=== PATIENT | female | born 1955 | race Caucasian/White ===

== ENCOUNTER 2017-09-07 07:59 | Observation (INO) | payer BC ==
[2017-09-07 09:28] LABS: CKMB 4.8 ng/mL (0-6.6); Troponin I Less than 0.010 ng/mL (< 0.028)
[2017-09-07 09:32] LABS: ALT (SGPT) 27 U/L (8-55); AST (SGOT) 60 U/L (5-34); Albumin 3.5 g/dL (3.4-4.8); Alkaline Phosphatase 45 U/L (40-150); Anion Gap 14 mmol/L (10-20); BUN (Urea Nitrogen) 33 mg/dL (9.8-20.1); Bilirubin, Total 1.9 mg/dL (0.2-1.2); CK (CPK) 340 U/L (29-168); Calc. Creatinine Clearance 0 mL/min (70-130); Calcium 8.7 mg/dL (7.8-10.44); Carbon Dioxide 25 mmol/L (23-31); Chloride 103 mmol/L (98-107); Estimated GFR-MDRD 38; Globulin 2.3 g/dL (2.4-3.5); Glucose 112 mg/dL (80-115); Lipase 14 U/L (8-78); Magnesium 2.5 mg/dL (1.6-2.6); Potassium 5.4 mmol/L (3.5-5.1); Protein, Total 5.8 g/dL (6.0-8.3); Sodium 137 mmol/L (136-145)
[2017-09-07 09:37] LABS: INR-International Normal Ratio 1.1; Prothrombin Time 14.4 SEC (12.0-14.7)
--- NOTE | 2017-09-07 10:08 | RAD ---
PORTABLE UPRIGHT FRONTAL CHEST RADIOGRAPH: DATE: 09/07/17. COMPARISON: 12/05/15. HISTORY: Chest pain. FINDINGS: There is no pneumothorax or pleural fluid. There is no focal consolidation or alveolar edema. Heart and mediastinal contours are unremarkable. No acute osseous abnormality is seen. Clips in the right upper quadrant suggest prior cholecystectomy. IMPRESSION: No acute findings. POS: [facility]
--- NOTE | 2017-09-07 10:20 | CT ---
CT HEAD NONCONTRAST: INDICATIONS: Altered mental status. COMPARISON: 08/19/2016 FINDINGS: There is motion artifact, which does limit the evaluation. Mild parenchymal volume loss is present. There is compensatory dilatation of the ventricular system. No intracranial hemorrhage, mass effect , or midline shift. The imaged paranasal sinuses reveal no acute fluid level. Subtle area of hypoattenuation indicate mild chronic ischemic disease. IMPRESSION: No acute intracranial abnormalities are identified, within limitations. POS: [facility]
[2017-09-07 10:27] LABS: Bilirubin Small (Negative); Blood, Urine Small (Negative); Glucose, Urine (Dipstick) Negative (Negative); Leukocyte Negative (Negative); Nitrite Negative (Negative); Protein, Urine (Dipstick) Negative (Neg-Trace); Specific Gravity, Urine 1.015 (1.005-1.030); pH, Urine 6.5 (5.0-9.0)
[2017-09-07 10:29] LABS: Clarity Clear (Clear)
--- NOTE | 2017-09-07 10:38 | CT ---
CT CHEST WITH CONTRAST: CT ABDOMEN AND PELVIS WITH CONTRAST: CT THORACIC SPINE WITH CONTRAST AND REFORMATTED IMAGING: CT LUMBAR SPINE WITH CONTRAST AND REFORMATTED IMAGING: CLINICAL HISTORY: Fall with injury and pain. FINDINGS: There is no evidence of lobar consolidation. No effusion or pneumothorax. There is mild subpleural patchy density of the left chest that may relate to volume loss. The solid abdominal organs are atra umatic in appearance. Evidence of a prior cholecystectomy. The bowel is incompletely assessed witho ut enteric contrast. The thoracolumbar spine maintains appropriate vertebral body height and alignme nt. There is scattered vascular calcification. No ascites or free air. No significant body wall contusi on or hematoma. IMPRESSION: 1. There is no acute post traumatic abnormality identified. 2. Additional details are described above. POS: [facility]
[2017-09-07 10:45] LABS: WBC/HPF 0-3 HPF (0-3)
[2017-09-07 10:46] LABS: Bacteria/HPF Rare-Few HPF (None Seen); Hyaline Casts/LPF 0-3 HYALINE CAST LPF (0-3 Hyaline); Transitional Epithelial 0-3 HPF (0-3)
[2017-09-07 11:14] LABS: #Basophils 0.1 thou/uL (0.0-0.2); #Lymphocytes 0.8 thou/uL (1.20-3.40); #Monocytes 0.5 thou/uL (0.11-0.59); #Neutrophils 2.2 thou/uL (1.40-6.50); %Basophils 1.7 % (0.0-1.0); %Eosinophils 0.1 % (0.0-10.0); %Lymphocytes 23.4 % (21.0-51.0); %Monocytes 12.9 % (0.0-10.0); %Neutrophils 61.9 % (42.0-75.0); Band 8 % (5-11); Lymphocytes 23 % (21-51); MDiff Complete? YES; Macrocytosis SLIGHT = 6-15 cells (100X) (0-5/hpf); Mean Corpuscular HGB CONC 34.3 g/dL (32.0-36.0); Mean Corpuscular Hemoglobin 35.3 pg (27.0-31.0); Mean Platelet Volume 6.8 fL (7.4-10.4); Metamyelocyte 1 % (0-0); Monocytes 6 % (0-10); Neutrophil 62 % (42-75); PLT Morphology Comment Appears Decreased; Platelet Count 47 thou/uL (130-400); Polychromasia SLIGHT = 2-3 cells (100X) (0-2/hpf); RBC Distribution Width 12.8 % (11.5-14.5); Red Blood Cell (RBC) Count 3.41 mill/uL (4.20-5.40); White Blood Cell (WBC) Count 3.6 thou/uL (4.8-10.8)
[2017-09-07] MEDS ORDERED: ISOVUE-370 76%-LOCM 1 ML ONE (12:13)
[2017-09-07] MEDS ORDERED: Ondansetron HCl/PF 4 MG/2 ML Vial IVP PRN ×2 (18:09→18:21)
[2017-09-07] MEDS ORDERED: Ondansetron ODT 4 MG TAB SL PRN (18:09)
[2017-09-07] MEDS ORDERED: Acetaminophen 325 MG TAB PO PRN ×2 (18:09→18:21)
[2017-09-07] MEDS ORDERED: Sodium Chloride 0.9% 1,000 ML IV SCH (18:15)
[2017-09-07] MEDS ORDERED: Ondansetron ODT 4 MG TAB PO PRN (18:21)
[2017-09-07] MEDS: Sodium Chloride 0.9% 1,000 ML IV SCH (19:29)
[2017-09-07 19:36] VITALS: BMI 19.2
[2017-09-07] MEDS ORDERED: Famotidine/PF 20 mg/2ml Vial SLOW IVP SCH (21:00)
[2017-09-07] MEDS: Calcium Citrate 950 MG TAB PO SCH (21:02)
[2017-09-07] MEDS: Docusate 100 MG CAP PO SCH (21:02)
[2017-09-08] MEDS: Sodium Chloride 0.9% 1,000 ML IV SCH ×3 (02:42→17:56)
[2017-09-08 05:14] LABS: ALT (SGPT) 22 U/L (8-55); AST (SGOT) 32 U/L (5-34); Alkaline Phosphatase 43 U/L (40-150); Anion Gap 11 mmol/L (10-20); BUN (Urea Nitrogen) 24 mg/dL (9.8-20.1); Bilirubin, Total 1.2 mg/dL (0.2-1.2); Calc. Creatinine Clearance 47 mL/min (70-130); Calcium 7.9 mg/dL (7.8-10.44); Carbon Dioxide 27 mmol/L (23-31); Chloride 107 mmol/L (98-107); Estimated GFR-MDRD 53; Globulin 1.9 g/dL (2.4-3.5); Glucose 113 mg/dL (80-115); Potassium 4.3 mmol/L (3.5-5.1); Protein, Total 4.9 g/dL (6.0-8.3); Sodium 141 mmol/L (136-145)
[2017-09-08 05:49] LABS: Band 2 % (5-11); Eosinophils 1 % (0-10); Hemoglobin 11.5 g/dL (12.0-16.0); Lymphocytes 50 % (21-51); MDiff Complete? YES; Mean Corpuscular HGB CONC 33.5 g/dL (32.0-36.0); Mean Platelet Volume 7.2 fL (7.4-10.4); Monocytes 11 % (0-10); Neutrophil 35 % (42-75); PLT Morphology Comment Appears Decreased; Platelet Count 42 thou/uL (130-400); RBC Distribution Width 12.9 % (11.5-14.5); Red Blood Cell (RBC) Count 3.29 mill/uL (4.20-5.40); White Blood Cell (WBC) Count 3.2 thou/uL (4.8-10.8)
[2017-09-08] MEDS: Multivit, Chewable SF 1 TAB PO SCH (09:21)
[2017-09-08] MEDS: Calcium Citrate 950 MG TAB PO SCH ×2 (09:21→20:51)
[2017-09-08] MEDS: Docusate 100 MG CAP PO SCH ×2 (09:22→20:50)
[2017-09-08] MEDS: Fluticasone Propionate Nasal Spray 16 gm Bottle NASAL SCH (11:21)
--- NOTE | 2017-09-08 15:00 | PDOC.PN ---
- Subjective Encounter Start Date: 09/08/17 Encounter Start Time: 11:00 Pt about the same, just off. denies f/C, no n/v/D/c, no CP, no SOB. Pt stated she fell, was on the ground for 4 days, doens remember coming to the ER 2 weeks ago for fall. recalls falling and fracturing her ankle months ago All systems reviewed and negative except as above. pt requesting to go to rehab - Objective Resuscitation Status: Resuscitation Status FULL:Full Resuscitation MAR Reviewed: Yes Vital Signs & Weight: Vital Signs (12 hours) Temp Pulse Resp BP Pulse Ox 09/08/17 11:31 97.8 F 72 16 125/57 L 100 09/08/17 08:00 97.5 F L 68 16 09/08/17 07:51 97.5 F L 68 16 125/79 97 Weight Weight 119 lb 0.794 oz I&O: 09/07/17 09/08/17 09/09/17 06:59 06:59 06:59 Intake Total 2850 Balance 2850 Result Diagrams: 09/08/17 04:49 09/08/17 04:49 Phys Exam - Physical Examination Constitutional: NAD HEENT: PERRLA, moist MMs, sclera anicteric, oral pharynx no lesions Neck: no nodes, no JVD, supple, full ROM Respiratory: no wheezing, no rales, no rhonchi, clear to auscultation bilateral Cardiovascular: RRR, no significant murmur Gastrointestinal: soft, non-tender, no distention, positive bowel sounds Musculoskeletal: no edema Neurological: non-focal, normal sensation, moves all 4 limbs Lymphatic: no nodes Skin: no rash, normal turgor, cap refill <2 seconds Dx/Plan (1) Fall on same level Code(s): W18.30XA - FALL ON SAME LEVEL, UNSPECIFIED, INITIAL ENCOUNTER Status : Acute (2) Bipolar 1 disorder Code(s): F31.9 - BIPOLAR DISORDER, UNSPECIFIED Status: Chronic (3) Decubitus ulcer Code(s): L89.90 - PRESSURE ULCER OF UNSPECIFIED SITE, UNSPECIFIED STAGE Status : Chronic Qualifiers: Qualified Code(s): L89.93 - Pressure ulcer of unspecified site, stage 3 Comment: sacral area, b/l heel stage 2, right forearm tissue injury, present on admit (4) Weakness Code(s): R53.1 - WEAKNESS Status: Chronic (5) Chronic anemia Code(s): D64.9 - ANEMIA, UNSPECIFIED Status: Chronic Comment: 12/24 (6) Dyslipidemia Code(s): E78.5 - HYPERLIPIDEMIA, UNSPECIFIED Status: Chronic (7) HTN (hypertension) Code(s): I10 - ESSENTIAL (PRIMARY) HYPERTENSION Status: Chronic Qualifiers: Hypertension type: essential hypertension Qualified Code(s): I10 - Essential (primary) hypertension (8) HYACINTH (acute kidney injury) Code(s): N17.9 - ACUTE KIDNEY FAILURE, UNSPECIFIED Status: Resolved Comment : improved overnight with fluids - Plan cont current plan of care, PT/OT, out of bed/ambulate * .
[2017-09-08] MEDS: Famotidine 20 MG TAB PO SCH (20:49)
[2017-09-08] MEDS ORDERED: Famotidine/PF 20 mg/2ml Vial SLOW IVP SCH (21:00)
[2017-09-09] MEDS: Sodium Chloride 0.9% 1,000 ML IV SCH (02:21)
[2017-09-09 04:53] LABS: Anion Gap 5 mmol/L (10-20); BUN (Urea Nitrogen) 19 mg/dL (9.8-20.1); Calc. Creatinine Clearance 53 mL/min (70-130); Calcium 7.3 mg/dL (7.8-10.44); Carbon Dioxide 29 mmol/L (23-31); Chloride 110 mmol/L (98-107); Estimated GFR-MDRD 61; Glucose 100 mg/dL (80-115); Magnesium 1.7 mg/dL (1.6-2.6); Potassium 4.1 mmol/L (3.5-5.1); Sodium 140 mmol/L (136-145)
[2017-09-09 05:06] LABS: #Eosinphils 0.1 thou/uL (0.0-0.7); #Lymphocytes 1.3 thou/uL (1.20-3.40); #Monocytes 0.4 thou/uL (0.11-0.59); #Neutrophils 0.8 thou/uL (1.40-6.50); %Basophils 0.8 % (0.0-1.0); %Eosinophils 4.9 % (0.0-10.0); %Monocytes 14.5 % (0.0-10.0); %Neutrophils 30.8 % (42.0-75.0); Hemoglobin 9.5 g/dL (12.0-16.0); Mean Corpuscular HGB CONC 33.8 g/dL (32.0-36.0); Mean Corpuscular Hemoglobin 35.7 pg (27.0-31.0); Mean Platelet Volume 7.1 fL (7.4-10.4); Platelet Count 40 thou/uL (130-400); RBC Distribution Width 12.9 % (11.5-14.5); Red Blood Cell (RBC) Count 2.65 mill/uL (4.20-5.40); White Blood Cell (WBC) Count 2.7 thou/uL (4.8-10.8)
[2017-09-09] MEDS: Multivit, Chewable SF 1 TAB PO SCH (08:15)
[2017-09-09] MEDS: Calcium Citrate 950 MG TAB PO SCH ×2 (08:15→20:00)
[2017-09-09] MEDS: Fluticasone Propionate Nasal Spray 16 gm Bottle NASAL SCH (08:15)
[2017-09-09] MEDS: Docusate 100 MG CAP PO SCH ×2 (08:16→20:01)
[2017-09-09 11:03] LABS: Iron Binding Capacity, Total 241 mcg/dL (265-497)
[2017-09-09 11:05] LABS: Iron 121 ug/dL (50-170)
[2017-09-09 11:33] LABS: Amphetamine Not Detected (NotDetected); Barbiturates Screen Not Detected (NotDetected); Benzodiazepine Screen Not Detected (NotDetected); Cocaine Metabolite Screen Not Detected (NotDetected); Medtox Control Line Valid? VALID (VALID); Medtox Reader # READER 4; Methadone Not Detected (NotDetected); Methamphetamine Not Detected (NotDetected); Opiate Screen Not Detected (NotDetected); Oxycodone Screen Not Detected (NotDetected); Phencyclidine (PCP) Not Detected (NotDetected); THC/Cannabinoid Screen Not Detected (NotDetected); Tricyclic Screen Not Detected (NotDetected)
[2017-09-09 13:19] LABS: Folate (Folic Acid) 6.7 ng/mL (7.0-31.4)
--- NOTE | 2017-09-09 14:36 | PDOC.PN ---
- Subjective Encounter Start Date: 09/09/17 Encounter Start Time: 14:35 Subjective: feels weak otherwise no new complaints -: reports that she is independent w ADL - Objective Resuscitation Status: Resuscitation Status FULL:Full Resuscitation MAR Reviewed: Yes Vital Signs & Weight: Vital Signs (12 hours) Temp Pulse Resp BP Pulse Ox 09/09/17 08:30 98.2 F 68 18 116/72 98 09/09/17 08:00 98.2 F 68 18 98 Weight Weight 119 lb 0.794 oz I&O: 09/08/17 09/09/17 09/10/17 06:59 06:59 06:59 Intake Total 2850 4600 Balance 2850 4600 Result Diagrams: 09/09/17 04:02 09/09/17 04:02 Additional Labs: Laboratory Tests 12/06/15 08/19/16 09/07/17 06:37 03:35 08:57 Hgb Plt Count 431 H 136 Troponin I Less than 0.010 TSH 3rd Generation 09/07/17 09/07/17 09/08/17 08:58 10:53 04:49 Hgb 12.0 11.5 L Plt Count 47 L 42 L Troponin I TSH 3rd Generation 1.5249 09/09/17 04:02 Hgb 9.5 L Plt Count 40 L Troponin I TSH 3rd Generation labs reviewed Phys Exam - Physical Examination Constitutional: NAD pale HEENT: PERRLA, moist MMs, sclera anicteric, oral pharynx no lesions Neck: no nodes, no JVD, supple, full ROM Respiratory: no wheezing, no rales, no rhonchi, clear to auscultation bilateral Cardiovascular: RRR, no significant murmur Gastrointestinal: soft, non-tender, no distention, positive bowel sounds Musculoskeletal: no edema, pulses present Neurological: non-focal, normal sensation, moves all 4 limbs Psychiatric: normal affect, A&O x 3 Skin: no rash Dx/Plan (1) Pancytopenia Code(s): D61.818 - OTHER PANCYTOPENIA Status: Acute (2) Fall on same level Code(s): W18.30XA - FALL ON SAME LEVEL, UNSPECIFIED, INITIAL ENCOUNTER Status : Acute (3) Bipolar 1 disorder Code(s): F31.9 - BIPOLAR DISORDER, UNSPECIFIED Status: Chronic (4) Dyslipidemia Code(s): E78.5 - HYPERLIPIDEMIA, UNSPECIFIED Status: Chronic (5) Folic acid deficiency Code(s): E53.8 - DEFICIENCY OF OTHER SPECIFIED B GROUP VITAMINS Status: Chronic - Plan PT/OT, out of bed/ambulate, DVT proph w/SCDs Cont to hold prozac given pancytopenia.depakote can also cause Pancytopenia -: DC seroquel as pt not on it at home -: replace Folic acid -: placement needede.Rehab eval in progress -: HD stable. AM labs * . Review of Systems - Review of Systems Constitutional: weakness, malaise. negative: fever, chills, sweats, other Respiratory: negative: Cough, Dry, Shortness of Breath, Hemoptysis, SOB with Excertion, Pleuritic Pain, Sputum, Wheezing Cardiovascular: negative: chest pain, palpitations, orthopnea, paroxysmal nocturnal dyspnea, edema, light headedness, other Gastrointestinal: negative: Nausea, Vomiting, Abdominal Pain, Diarrhea, Constipation, Melena, Hematochezia, Other Genitourinary: negative: Dysuria, Frequency, Incontinence, Hematuria, Retention , Other Musculoskeletal: negative: Neck Pain, Shoulder Pain, Arm Pain, Back Pain, Hand Pain, Leg Pain, Foot Pain, Other Skin: negative: Rash, Lesions, [place], Bruising, Other Neurological: negative: Weakness, Numbness, Incoordination, Change in Speech, Confusion, Seizures, Other - Medications/Allergies Allergies/Adverse Reactions: Allergies Allergy/AdvReac Type Severity Reaction Status Date / Time No Known Allergies Allergy Verified 09/08/17 15:00 Medications: Current Medications Acetaminophen (Tylenol) 650 mg PO Q4H PRN PRN Reason: Headache/Fever or Pain Calcium Citrate (Calcium Citrate) 950 mg PO BID [facility] Last Admin: 09/09/17 08:15 Dose: 950 mg Divalproex Sodium (Depakote Er) 1,000 mg PO DAILY [facility] Last Admin: 09/09/17 10:48 Dose: 1,000 mg Docusate Sodium (Colace) 100 mg PO BID [facility] Last Admin: 09/09/17 08:16 Dose: Not Given Ezetimibe (Zetia) 10 mg PO DAILY [facility] Famotidine (Pepcid) 20 mg PO 2100 [facility] Last Admin: 09/08/17 20:49 Dose: 20 mg Fluticasone Propionate (Flonase Nasal Waves) 0 gm NASAL DAILY [facility] Last Admin: 09/09/17 08:15 Dose: 1 spray Multivitamins (Multivit, Chewable Sf) 1 tab PO DAILY [facility] Last Admin: 09/09/17 08:15 Dose: 1 tab Ondansetron HCl (Zofran Odt) 4 mg PO Q6H PRN PRN Reason: Nausea/Vomiting Ondansetron HCl (Zofran) 4 mg IVP Q6H PRN PRN Reason: Nausea/Vomiting Sodium Chloride (Flush - Normal Saline) 10 ml IVF Q12HR [facility] Last Admin: 09/09/17 08:16 Dose: Not Given Sodium Chloride (Flush - Normal Saline) 10 ml IVF PRN PRN PRN Reason: Saline Flush
[2017-09-09 15:18] LABS: #Eosinphils 0.1 thou/uL (0.0-0.7); #Lymphocytes 1.6 thou/uL (1.20-3.40); #Monocytes 0.4 thou/uL (0.11-0.59); #Neutrophils 1.1 thou/uL (1.40-6.50); %Basophils 1.1 % (0.0-1.0); %Eosinophils 3.2 % (0.0-10.0); %Lymphocytes 49.1 % (21.0-51.0); %Monocytes 13.3 % (0.0-10.0); %Neutrophils 33.4 % (42.0-75.0); Hemoglobin 11.1 g/dL (12.0-16.0); Mean Corpuscular HGB CONC 33.3 g/dL (32.0-36.0); Mean Corpuscular Hemoglobin 35.2 pg (27.0-31.0); Mean Platelet Volume 6.7 fL (7.4-10.4); Platelet Count 49 thou/uL (130-400); RBC Distribution Width 12.7 % (11.5-14.5); Red Blood Cell (RBC) Count 3.16 mill/uL (4.20-5.40); White Blood Cell (WBC) Count 3.2 thou/uL (4.8-10.8)
[2017-09-09] MEDS: Famotidine 20 MG TAB PO SCH (20:01)
[2017-09-10 05:22] LABS: Eosinophils 7 % (0-10); Lymphocytes 63 % (21-51); MDiff Complete? YES; Mean Corpuscular HGB CONC 33.7 g/dL (32.0-36.0); Mean Corpuscular Hemoglobin 35.2 pg (27.0-31.0); Mean Platelet Volume 6.4 fL (7.4-10.4); Monocytes 7 % (0-10); Neutrophil 23 % (42-75); PLT Morphology Comment Appears Decreased; Platelet Count 59 thou/uL (130-400); RBC Distribution Width 12.6 % (11.5-14.5); Red Blood Cell (RBC) Count 2.83 mill/uL (4.20-5.40); White Blood Cell (WBC) Count 3.6 thou/uL (4.8-10.8)
[2017-09-10 08:36] VITALS: TEMP 98.3
[2017-09-10] MEDS ORDERED: Ezetimibe 10 MG TAB PO SCH (09:00)
[2017-09-10] MEDS ORDERED: Folic Acid 1 MG TAB PO SCH (09:00)
[2017-09-10] MEDS: Docusate 100 MG CAP PO SCH (09:03)
[2017-09-10] MEDS: Calcium Citrate 950 MG TAB PO SCH (09:03)
[2017-09-10] MEDS: Multivit, Chewable SF 1 TAB PO SCH (09:04)
[2017-09-10] MEDS: Fluticasone Propionate Nasal Spray 16 gm Bottle NASAL SCH (09:07)
[2017-09-10 16:03] VITALS: BP 114/62
--- NOTE | 2017-09-11 01:49 | DIS ---
DATE OF ADMISSION: Probably 09/07/2017 The patient was admitted by Dr. Pelon Blackwood. There is no H&P available at the time of discharge for me to review. DISCHARGE DIAGNOSES: 1. Pancytopenia, likely secondary to antidepressants Depakote and Prozac, improving. 2. Presentation after a fall with history of multiple falls. 3. History of psychiatric illness, anxiety and depression and bipolar illness. 4. Generalized chronic weakness. 5. Dyslipidemia. 6. Hypertension. 7. Acute kidney injury upon presentation, which is resolved. 8. Hyperkalemia on presentation, which is resolved. 9. Mild rhabdomyolysis, resolved. DISCHARGE DISPOSITION: [facility]. DISCHARGE MEDICATIONS: Depakote ER 1000 mg daily, Zetia 10 mg daily, aspirin 81 mg daily, fenofibric acid 135 mg daily, calcium citrate 950 mg p.o. b.i.d., nasal spray Flonase, Klonopin 0.25 mg p.o. b. i.d., Zofran as needed, folic acid 1 mg daily, Pepcid 20 mg daily, docusate as needed, Tylenol as nee ded. Please note that the Prozac has been put on hold given the pancytopenia. The patient might need an a lternative antidepressant given her pancytopenia. PROCEDURES DONE IN THE HOSPITAL: 1. CT scan of the chest, abdomen, and pelvis, which is negative for any evidence of acute abnormalit y. No hematoma or free air or fluid noticed. 2. Chest x-ray, which is negative for any cardiopulmonary abnormality. 3. CT scan of the brain, which is negative for any hemorrhage or acute infarction. HISTORY OF PRESENTING ILLNESS: This is obtained by the review from the emergency room physician's re cord. No H&P is available for me to review. According to the ER physician, the patient presented to the ER for a fall that has happened 4 days ag o prior to presentation. She complained of feeling weak and dizzy and does not really remember the e vent. She reports that she has fallen before as well. She was hemodynamically stable upon presentat ion with a blood pressure of 162/71 and pulse of 66. Her workup included CBC, which showed evidence of pancytopenia. She had bruises and abrasions all over the body. Twelve-lead EKG shows sinus kathrine cardia. Multiple imaging studies were done and were negative as above. She was given IV fluids and a CT scan of the chest, abdomen, and pelvis was done, which was negative for any blood loss or hemato ma. She was admitted for placement. HOSPITAL COURSE: The patient remained stable throughout the hospitalization. For her pancytopenia, this is likely secondary to her Depakote and Prozac. Prozac was held, but the Depakote was restarted upon patient's request with precaution. Her counts are stable, are improving at this point. I have stopped the Prozac for now. Her renal function was slightly reduced with a GFR of 38, which improve d with IV fluids. She had mild elevation of CPK at 340, which was improved as well. For her anemia, anemia workup was done and she was found to have low folic acid of 6.70 and she was started on folic acid supplementation. Iron level was normal at 121. Urinalysis negative. Urine drug screen negati ve. She was seen and examined prior to discharge and has been accepted by [facility]. PHYSICAL EXAMINATION: VITAL SIGNS: This morning, temperature 98.3, pulse of 60, respirations 16, saturating 98% on room ai r, blood pressure 107/62. GENERAL: No acute distress, awake, alert, oriented x3. CHEST: Clear to auscultation without any wheezing, rales or rhonchi. CARDIOVASCULAR: Rate and rhythm is regular without any murmurs or gallops. Discharge plan was discussed with the patient, who verbalized understanding.
== END 2017-09-10 15:01 ==
LOC: ERS 07:59 → T4-B 18:01
PROVIDERS: ADMIT Internal Medicine Infectious Disease; ATTEND Internal Medicine Infectious Disease
DX: D61.818 Other pancytopenia (principal); E78.5 Hyperlipidemia, unspecified; I10 Essential (primary) hypertension; E87.5 Hyperkalemia; F31.9 Bipolar disorder, unspecified; M62.82 Rhabdomyolysis; L89.90 Pressure ulcer of unspecified site, unspecified stage; N17.9 Acute kidney failure, unspecified; E53.8 Deficiency of other specified B group vitamins; D64.9 Anemia, unspecified; Z79.82 Long term (current) use of aspirin; Z79.899 Other long term (current) drug therapy; W18.30XA Fall on same level, unspecified, initial encounter
CPT/HCPCS: 36415; 36416; 51701; 70450; 71045; 71260; 74177; 80048; 80053; 80306; 81003; 81015; 82553; 82607; 82746; 83540; 83550; 83605; 83690; 83735; 84443; 84484; 85025; 85060; 85610; 93005; 96360; 96361; 96374; A4216; A4353; G0378; G8978-GP-CK; G8979-GP-CI; G8987-GO-CJ; G8988-GO-CI; S0028

== ENCOUNTER 2018-05-09 01:42 | Inpatient (IN) | payer MEDICARE, BC ==
[2018-05-09 02:04] LABS: Bilirubin Negative (Negative); Blood, Urine Negative (Negative); Clarity Clear (Clear); Glucose, Urine (Dipstick) Negative (Negative); Leukocyte Negative (Negative); Nitrite Negative (Negative); Protein, Urine (Dipstick) Negative (Neg-Trace); Specific Gravity, Urine 1.015 (1.005-1.030); Urobilinogen 0.2 mg/dL (0.2-1.0)
[2018-05-09 02:19] LABS: #Basophils 0.1 thou/uL (0.0-0.2); #Eosinphils 0.2 thou/uL (0.0-0.7); #Lymphocytes 1.5 thou/uL (1.20-3.40); #Monocytes 0.6 thou/uL (0.11-0.59); #Neutrophils 4.2 thou/uL (1.40-6.50); %Eosinophils 2.5 % (0.0-10.0); %Lymphocytes 23.4 % (21.0-51.0); %Monocytes 8.7 % (0.0-10.0); %Neutrophils 64.5 % (42.0-75.0); Hemoglobin 12.6 g/dL (12.0-16.0); Mean Corpuscular HGB CONC 35.5 g/dL (32.0-36.0); Mean Corpuscular Hemoglobin 34.8 pg (27.0-31.0); Mean Corpuscular Volume 98.2 fL (78.0-98.0); Mean Platelet Volume 5.2 fL (7.4-10.4); Platelet Count 344 thou/uL (130-400); RBC Distribution Width 14.3 % (11.5-14.5); Red Blood Cell (RBC) Count 3.61 mill/uL (4.20-5.40); White Blood Cell (WBC) Count 6.4 thou/uL (4.8-10.8)
[2018-05-09 02:39] LABS: ALT (SGPT) 18 U/L (8-55); AST (SGOT) 29 U/L (5-34); Albumin 3.9 g/dL (3.4-4.8); Alkaline Phosphatase 30 U/L (40-150); Anion Gap 13 mmol/L (10-20); BUN (Urea Nitrogen) 33 mg/dL (9.8-20.1); Bilirubin, Total 0.8 mg/dL (0.2-1.2); Calc. Creatinine Clearance 0 mL/min (70-130); Calcium 10.6 mg/dL (7.8-10.44); Carbon Dioxide 30 mmol/L (23-31); Chloride 107 mmol/L (98-107); Estimated GFR-MDRD 66; Globulin 2.5 g/dL (2.4-3.5); Glucose 115 mg/dL (80-115); Protein, Total 6.4 g/dL (6.0-8.3); Sodium 148 mmol/L (136-145)
[2018-05-09 02:41] LABS: Potassium 1.8 mmol/L (3.5-5.1)
[2018-05-09 02:44] LABS: Magnesium 2.1 mg/dL (1.6-2.6)
[2018-05-09 03:09] LABS: CKMB 6.2 ng/mL (0-6.6)
[2018-05-09] MEDS ORDERED: Pot Chloride/Pot Bicarb/Cit Ac 25 mEq Effervescent Tablet PO SCH (03:30)
[2018-05-09] MEDS ORDERED: Magnesium 2 GM/50 ML BAG (IN WATER) ONE (05:17)
[2018-05-09] MEDS ORDERED: Enoxaparin Sodium 60 MG/0.6 ML SYRINGE ONE (06:14)
[2018-05-09] MEDS ORDERED: Aspirin 325 MG TAB ONE (06:14)
--- NOTE | 2018-05-09 08:13 | RAD ---
PORTABLE CHEST ONE VIEW: 05/09/2018 1:30 a.m. HISTORY: Weakness. COMPARISON: 09/07/2017 FINDINGS: The heart size is normal. The lungs are well expanded without focal areas of consolidation, pneumoth oraces, or pleural effusions. IMPRESSION: No radiographic evidence of acute cardiopulmonary process. POS: [facility]
--- NOTE | 2018-05-09 08:21 | CT ---
PRELIMINARY REPORT/[facility]/EMERGENCY AFTER HOURS PROCEDURE: EXAM: CT Head Without Contrast EXAM DATE/TIME: 05/09/2018 2:23 AM CLINICAL HISTORY: 62 years old, female; Injury or trauma; Fall; Initial encounter; Abrasion; Not specified; Patient HX: PT reports fall while getting up to go to bathroom tonight. Denies loc, hitting head, stating that s he just was weak and collapsed. PT was unable to get up and remained of floor for approx. 3 hrs until neighbo r heard PT calling out. TECHNIQUE: Axial computed tomography images of the head/brain without contrast. COMPARISON: No relevant prior studies available. FINDINGS: Brain: Old lacunar infarction within the right basal ganglia. No mass, hemorrhage, or acute infarctio n. Ventricles: Normal. Bones/joints: Normal. Sinuses: Normal as visualized. Mastoid air cells: Normal as visualized. Soft tissues: Unremarkable. Vasculature: Atherosclerotic vascular calcifications. IMPRESSION: No acute intracranial abnormality. Thank you for allowing us to participate in the care of your patient. Dictated and Authenticated by: Db Arias MD 05/09/2018 3:21 AM Central Time ([place] & [place]) FINAL REPORT CT BRAIN WITHOUT CONTRAST: I agree with the preliminary report given by Dr. Db Arias of [facility]. POS: [facility]
--- NOTE | 2018-05-09 08:25 | CT ---
PRELIMINARY REPORT/[facility]/EMERGENCY AFTER HOURS PROCEDURE: EXAM: CT Cervical Spine Without Contrast EXAM DATE/TIME: 05/09/2018 3:12 AM CLINICAL HISTORY: 62 years old, female; Pain; Neck pain; Patient HX: PT reports fall while getting up to go to bathroom tonight. Denies loc, hitting head, stating that she just was weak and collapsed. PT was unable to ge t up and remained of floor for approx. 3 hrs until neighbor heard PT calling out. TECHNIQUE: Axial computed tomography images of the cervical spine without intravenous contrast. Coronal and sagi ttal reformatted images were created and reviewed. COMPARISON: No relevant prior studies available. FINDINGS: Vertebrae: Grade 1 (2 mm) degenerative retrolisthesis of C3 on C4 and grade one (2 mm) degenerative a nterolisthesis of C5 on C6. Mild multilevel bilateral facet and uncovertebral arthropathy. No acute f racture. Discs/Spinal canal/Neural foramina: Multilevel degenerative disc disease, worst at the C5-6 and C6-7 levels, where there is moderate disc space narrowing and osteophyte formation. Soft tissues: Normal. Lungs: Lung apices are normal. IMPRESSION: No acute fracture. Thank you for allowing us to participate in the care of your patient. Dictated and Authenticated by: Db Arias MD 05/09/2018 3:26 AM Central Time ([place] & [place]) FINAL REPORT CT CERVICAL SPINE WITH CORONAY AND SAGITTAL REFORMATIONS: I agree with the preliminary report given by Dr. Db Arias of [facility]. POS: [facility]
--- NOTE | 2018-05-09 10:32 | HP ---
PRIMARY CARE PROVIDER: Dr. Shahzad Christianson. CHIEF COMPLAINT: Fall and weakness. HISTORY OF PRESENT ILLNESS: This is a 62-year-old female, who presents to [facility] Emergency Department after apparently falling out of her bed at her home. The patient states that she was attempting to stand up when she turned, falling out of her bed and was unable to stand up on her own volition. The patient was on the carpeted floor in her home and was attempting to reach her phone with her foot, which was unsuccessful. The patient continued to yell and scream, alerting a neighbor, who eventually was able to secure a soria and notify EMS personnel. The patient states she has had difficulty with loose stool and diarrhea over the last 2 weeks with decreased oral intake and some dehydration. The patient denied any recent travel history, exposure, or family members with similar symptoms. The patient does state she has limited mobility using a cane for stabilization. The patient does have a history of multiple falls and evaluations for same after reviewing electronic medical record. The patient denied any chest pain, unilateral weakness, recent fever, chills, or emesis. The patient denied any loss of consciousness with the fall and was evaluated by EMS personnel, noting a normal glucose value. The patient was evaluated in the emergency room and noted to be severely hypokalemic with a potassium level of 1.8. The patient was also noted with mild acute kidney injury and given IV fluids and potassium supplementation. The patient was referred to the Hospitalist Service for evaluation. PAST MEDICAL HISTORY: 1. History of falls. 2. History of pancytopenia, likely due to antidepressant therapy and anti-seizure medication. 3. Bipolar disorder. 4. Anxiety/depression. 5. Hypertension. 6. Dyslipidemia. 7. History of mild rhabdomyolysis. 8. History of osteoporosis. 9. Chronic fatigue. PAST SURGICAL HISTORY: 1. Status post thyroid surgery. 2. Status post bilateral thyroidectomy. 3. Status post oophorectomy. 4. Status post cholecystectomy. 5. Status post bilateral tubal ligation. CURRENT MEDICATIONS: Based on previous admission in 2018; 1. Aspirin 81 mg p.o. daily. 2. Calcium citrate 950 mg p.o. t.i.d. 3. Klonopin 0.25 mg p.o. b.i.d. 4. Depakote ER 1000 mg p.o. daily. 5. Zetia 10 mg p.o. daily. 6. Fenofibric acid 135 mg p.o. daily. 7. Multivitamin one tablet p.o. daily. 8. Folic acid 1 mg p.o. daily. ALLERGIES: NO KNOWN DRUG ALLERGIES. FAMILY HISTORY: Positive for osteoporosis and thyroid disease. SOCIAL HISTORY: The patient lives independently in the [place], [place] area. Ambulates with the use of a cane. History of multiple falls. No current alcohol, tobacco, or illicit drug use. Her son is medical power of employee benefits attorney. REVIEW OF SYSTEMS: CONSTITUTIONAL: Negative for weight loss or gain, ability to conduct usual activities. SKIN: Negative for rash, itching. EYES: Negative for double vision, pain. ENT/MOUTH: Negative for nose bleeding, neck stiffness, pain, tenderness. CARDIOVASCULAR: Negative for palpitations, dyspnea on exertion, orthopnea. RESPIRATORY: Negative for shortness of breath, wheezing, cough, hemoptysis, fever or night sweats. GASTROINTESTINAL: Negative for poor appetite, abdominal pain, heartburn, nausea, vomiting, constipation, or diarrhea. GENITOURINARY: Negative for urgency, frequency, dysuria, nocturia. MUSCULOSKELETAL: Negative for pain, swelling. NEUROLOGIC/PSYCHIATRIC: Negative for anxiety, depression. ALLERGY/IMMUNOLOGIC: Negative for skin rash, bleeding tendency. Otherwise, negative except as stated per HPI. PHYSICAL EXAMINATION: VITAL SIGNS: On admission; blood pressure 158/90, pulse 82, respiratory rate 16, temperature 98 degrees Fahrenheit, and O2 saturations 99% on room air. GENERAL APPEARANCE: This is a 62-year-old female, alert and oriented x3, pleasant, smiling, in no acute distress. HEENT: Pupils are equal, round, reactive to light and accommodation. Extraocular muscles are intact. No scleral icterus. No conjunctival injection. Nares, patent. OP is clear. Oral mucosa, dry appearing. NECK: Supple. No cervical adenopathy. No thyromegaly. No carotid bruits. No JVD appreciated. Cervical spine with full active and passive range of motion. No meningeal signs appreciated. CHEST: Lungs are clear to auscultation bilaterally. CARDIOVASCULAR: S1 and S2 without noted murmur, rub, or gallop. ABDOMEN: Rounded, soft, nontender, and nondistended. Bowel sounds are positive in all 4 quadrants. No palpable mass. No rebound or guarding noted. EXTREMITIES: Warm and dry with fair turgor. Generalized muscle atrophy noted bilaterally. No deformity noted. No clubbing, cyanosis, or asymmetric edema noted. Pulses are palpable distally at the dorsalis pedis, posterior tibial, and popliteal arteries bilaterally. Capillary refill less than 2 seconds. NEUROLOGIC: Cranial nerves 2 through 12 are grossly intact. No focal or lateralizing signs appreciated. PERTINENT LAB AND X-RAY FINDINGS: Sodium 148, potassium 1.8, chloride 107, CO2 of 30, BUN 33, creatinine 0.87, estimated GFR of 66, glucose 115, calcium 10.6, magnesium 2.1. LFTs within normal limits. Total CK of 280, troponin-I ranged between 0.027 to 0.034. Albumin 3.9. CBC showed a white blood cell count of 6.4, hemoglobin 12.6, hematocrit 36, MCV 98, platelet count 344, with normal differential. Urinalysis, negative. CT of the brain dated 05/09/2018, showed no acute intracranial process. Old lacunar infarct in the right basal ganglia noted. CT of the cervical spine dated 05/09/2018, showed no acute fracture dislocation. Portable chest x-ray dated 05/09/2018, by my review, showed no acute cardiopulmonary process. EKG dated 05/09/2018, by my review, shows sinus mechanism with heart rates in the 70s. Attenuated R-waves noted in the precordial leads. Left axis deviation. Voltage criteria consistent with left ventricular hypertrophy. ST-T wave flattening noted in V5 and V6. ASSESSMENT AND PLAN: 1. Hypokalemia. Severe hypokalemia noted with initial value of 1.8. We will continue potassium supplementation with 40 mEq in normal saline infused at 100 mL/h. Increase oral supplementation with potassium chloride 40 mEq p.o. b.i.d. Repeat potassium level in the a.m. 2. Acute kidney injury. Mild. We will continue IV fluid supplementation as stated previously. Avoid nephrotoxic agents and limit contrast exposure. Repeat creatinine in the a.m. 3. Dehydration. We will continue IV fluids as outlined previously. Encourage increased free water intake orally. 4. Hypernatremia. Suspect secondary to dehydration as outlined previously. Continue IV fluid supplementation and repeat sodium level in the a.m. 5. Rhabdomyolysis. Acute mild rhabdomyolysis. Secondary to recent fall as noted in the history of present illness. Continue IV fluid supplementation. 6. Fall. No specific injury identified on clinical exam and radiological analysis. We will obtain PT evaluation in the a.m. for functional assessment. General fall risk precautions. 7. Prophylaxis. SCDs while in bed. Pepcid 20 mg p.o. b.i.d. PT evaluation for functional assessment. 8. Code status is full. Surrogate medical decision maker is the patient's son. Job ID: [id number]
[2018-05-09 10:48] LABS: Troponin I 0.029 ng/mL (< 0.028)
[2018-05-09] MEDS ORDERED: Ondansetron PF 4 MG/2 ML Vial IVP PRN (16:19)
[2018-05-09] MEDS ORDERED: Ondansetron ODT 4 MG TAB PO PRN (16:19)
[2018-05-09] MEDS ORDERED: Folic Acid 1 MG TAB PO SCH (17:00)
[2018-05-09] MEDS ORDERED: Famotidine 20 MG TAB PO SCH (17:00)
[2018-05-09] MEDS ORDERED: clonazePAM 0.5 MG TAB PO SCH (17:00)
[2018-05-09] MEDS ORDERED: Aspirin Chewable 81 MG TAB PO SCH (17:00)
[2018-05-09] MEDS: NS 0.9% w/ 40 MEQ KCL 1,000 ML IV SCH (17:14)
[2018-05-10] MEDS: NS 0.9% w/ 40 MEQ KCL 1,000 ML IV SCH ×3 (02:38→21:47)
[2018-05-10 04:55] LABS: ALT (SGPT) 16 U/L (8-55); AST (SGOT) 27 U/L (5-34); Alkaline Phosphatase 26 U/L (40-150); Anion Gap 9 mmol/L (10-20); BUN (Urea Nitrogen) 17 mg/dL (9.8-20.1); Bilirubin, Total 0.5 mg/dL (0.2-1.2); Calc. Creatinine Clearance 66 mL/min (70-130); Calcium 7.5 mg/dL (7.8-10.44); Carbon Dioxide 30 mmol/L (23-31); Chloride 111 mmol/L (98-107); Estimated GFR-MDRD 78; Globulin 1.9 g/dL (2.4-3.5); Glucose 98 mg/dL (80-115); Protein, Total 4.9 g/dL (6.0-8.3); Sodium 148 mmol/L (136-145)
[2018-05-10 04:57] LABS: Eosinophils 5 % (0-10); Hemoglobin 11.2 g/dL (12.0-16.0); Lymphocytes 37 % (21-51); MDiff Complete? YES; Mean Corpuscular HGB CONC 34.2 g/dL (32.0-36.0); Mean Corpuscular Volume 99.3 fL (78.0-98.0); Mean Platelet Volume 5.3 fL (7.4-10.4); Monocytes 14 % (0-10); Neutrophil 44 % (42-75); Platelet Count 300 thou/uL (130-400); RBC Distribution Width 14.2 % (11.5-14.5); Red Blood Cell (RBC) Count 3.31 mill/uL (4.20-5.40); White Blood Cell (WBC) Count 4.3 thou/uL (4.8-10.8)
[2018-05-10] MEDS: clonazePAM 0.5 MG TAB PO SCH ×2 (08:02→20:27)
[2018-05-10] MEDS: Aspirin Chewable 81 MG TAB PO SCH (08:03)
[2018-05-10] MEDS: Famotidine 20 MG TAB PO SCH ×2 (08:03→20:26)
[2018-05-10] MEDS: Folic Acid 1 MG TAB PO SCH (08:03)
[2018-05-10] MEDS: Docusate 100 MG CAP PO SCH ×2 (08:55→20:26)
[2018-05-10] MEDS: FLUoxetine HCl 20 MG CAP PO SCH (08:55)
[2018-05-10] MEDS: Multivit, Therapeutic 1 TAB PO SCH (08:55)
[2018-05-10 11:34] VITALS: BMI 20.3
--- NOTE | 2018-05-10 14:21 | PDOC.PN ---
- Subjective Encounter Start Date: 05/10/18 Encounter Start Time: 08:15 -: old records requested/rev Patient seen and examined. No new complaints. No overnight events - Objective Resuscitation Status - Order Detail: 05/09/18 08:38 Resuscitation Status Routine Resuscitation Status: FULL: Full Resuscitation MAR Reviewed: Yes Vital Signs & Weight: Vital Signs (12 hours) Temp Pulse Resp BP Pulse Ox 05/10/18 11:35 97.0 F L 60 15 139/62 99 05/10/18 08:15 97.6 F 55 L 16 141/67 H 96 05/10/18 04:43 97.0 F L 67 16 119/54 L 97 Weight Admit Weight 122 lb Weight 126 lb 4 oz I&O: 05/09/18 05/10/18 05/11/18 06:59 06:59 06:59 Intake Total 1980 Output Total 1000 Balance 980 Result Diagrams: 05/10/18 04:14 05/10/18 04:14 EKG Reviewed by me: Yes Phys Exam - Physical Examination Constitutional: NAD HEENT: PERRLA, moist MMs, sclera anicteric Neck: no JVD, supple Respiratory: no wheezing, no rales, no rhonchi Cardiovascular: RRR, no significant murmur, no rub Gastrointestinal: soft, non-tender, no distention, positive bowel sounds Musculoskeletal: no edema, pulses present Neurological: non-focal Lymphatic: no nodes Psychiatric: normal affect, A&O x 3 Skin: no rash, normal turgor Dx/Plan (1) HYACINTH (acute kidney injury) Code(s): N17.9 - ACUTE KIDNEY FAILURE, UNSPECIFIED Status: Acute (2) Dehydration Code(s): E86.0 - DEHYDRATION Status: Acute (3) Fall Code(s): W19.XXXA - UNSPECIFIED FALL, INITIAL ENCOUNTER Status: Acute (4) Hypernatremia Code(s): E87.0 - HYPEROSMOLALITY AND HYPERNATREMIA Status: Acute (5) Hypokalemia Code(s): E87.6 - HYPOKALEMIA Status: Acute (6) Rhabdomyolysis Code(s): M62.82 - RHABDOMYOLYSIS Status: Acute (7) Anxiety and depression Code(s): F41.9 - ANXIETY DISORDER, UNSPECIFIED; F32.9 - MAJOR DEPRESSIVE DISORDER, SINGLE EPISODE, UNSPECIFIED Status: Chronic (8) Bipolar disorder Code(s): F31.9 - BIPOLAR DISORDER, UNSPECIFIED Status: Chronic (9) Chronic anemia Code(s): D64.9 - ANEMIA, UNSPECIFIED Status: Chronic Comment: (10) Dyslipidemia Code(s): E78.5 - HYPERLIPIDEMIA, UNSPECIFIED Status: Chronic (11) HTN (hypertension) Code(s): I10 - ESSENTIAL (PRIMARY) HYPERTENSION Status: Chronic - Plan cont current plan of care * continue IVF * replace potassium with fluid and orally * repeat labs tomorrow * medication reviewed as below * symptomatic treatment. Review of Systems - Review of Systems ENT: negative: Ear Pain, Ear Discharge, Nose Pain, Nose Discharge, Nose Congestion, Mouth Pain, Mouth Swelling, Throat Pain, Throat Swelling, Other Respiratory: negative: Cough, Dry, Shortness of Breath, Hemoptysis, SOB with Excertion, Pleuritic Pain, Sputum, Wheezing Cardiovascular: negative: chest pain, palpitations, orthopnea, paroxysmal nocturnal dyspnea, edema, light headedness, other Gastrointestinal: negative: Nausea, Vomiting, Abdominal Pain, Diarrhea, Constipation, Melena, Hematochezia, Other Genitourinary: negative: Dysuria, Frequency, Incontinence, Hematuria, Retention , Other Musculoskeletal: negative: Neck Pain, Shoulder Pain, Arm Pain, Back Pain, Hand Pain, Leg Pain, Foot Pain, Other - Medications/Allergies Allergies/Adverse Reactions: Allergies Allergy/AdvReac Type Severity Reaction Status Date / Time No Known Allergies Allergy Verified 05/09/18 16:34 Medications: Current Medications Acetaminophen (Tylenol) 1,000 mg PO Q6H PRN PRN Reason: Mild Pain (1-3) Aspirin (Aspirin Chewable) 81 mg PO DAILY [facility] Last Admin: 05/10/18 08:03 Dose: 81 mg Clonazepam (Klonopin) 0.25 mg PO BID [facility] Last Admin: 05/10/18 08:02 Dose: 0.25 mg Divalproex Sodium (Depakote Er) 1,000 mg PO DAILY [facility] Last Admin: 05/10/18 08:03 Dose: 1,000 mg Docusate Sodium (Colace) 100 mg PO BID [facility] Last Admin: 05/10/18 08:55 Dose: 100 mg Famotidine (Pepcid) 20 mg PO BID [facility] Last Admin: 05/10/18 08:03 Dose: 20 mg Fluoxetine HCl (Prozac) 60 mg PO DAILY [facility] Last Admin: 05/10/18 08:55 Dose: 60 mg Folic Acid (Folvite) 1 mg PO DAILY [facility] Last Admin: 05/10/18 08:03 Dose: 1 mg Potassium Chloride/Sodium Chloride (Ns 0.9% W/ 40 Meq Kcl) 1,000 mls @ 100 mls/ hr IV .Q10H [facility] Last Admin: 05/10/18 11:24 Dose: 1,000 mls Multivitamins (Theragran) 1 tab PO DAILY [facility] Last Admin: 05/10/18 08:55 Dose: 1 tab Ondansetron HCl (Zofran Odt) 4 mg PO Q6H PRN PRN Reason: Nausea/Vomiting Ondansetron HCl (Zofran) 4 mg IVP Q6H PRN PRN Reason: Nausea/Vomiting Fenofibric Acid ( Choline) [Fenofibric Acid] 135 Mg 0 each PO DAILY [facility] Potassium Chloride (K-Dur) 40 meq PO BID-[facility]
[2018-05-10] MEDS: Potassium Chloride 20 MEQ TAB PO SCH (16:26)
[2018-05-11] MEDS: Acetaminophen 500 MG TAB PO PRN ×2 (00:11→06:05)
[2018-05-11 05:10] LABS: #Eosinphils 0.2 thou/uL (0.0-0.7); #Lymphocytes 1.7 thou/uL (1.20-3.40); #Monocytes 0.4 thou/uL (0.11-0.59); #Neutrophils 1.8 thou/uL (1.40-6.50); %Eosinophils 4.4 % (0.0-10.0); %Lymphocytes 40.2 % (21.0-51.0); %Monocytes 10.3 % (0.0-10.0); %Neutrophils 44.1 % (42.0-75.0); Hemoglobin 11.1 g/dL (12.0-16.0); Mean Corpuscular HGB CONC 34.9 g/dL (32.0-36.0); Mean Corpuscular Hemoglobin 34.6 pg (27.0-31.0); Mean Platelet Volume 5.3 fL (7.4-10.4); Platelet Count 281 thou/uL (130-400); RBC Distribution Width 14.2 % (11.5-14.5); Red Blood Cell (RBC) Count 3.22 mill/uL (4.20-5.40); White Blood Cell (WBC) Count 4.1 thou/uL (4.8-10.8)
[2018-05-11 05:40] LABS: ALT (SGPT) 19 U/L (8-55); AST (SGOT) 33 U/L (5-34); Albumin 3.1 g/dL (3.4-4.8); Alkaline Phosphatase 28 U/L (40-150); Anion Gap 7 mmol/L (10-20); BUN (Urea Nitrogen) 9 mg/dL (9.8-20.1); Bilirubin, Total 0.4 mg/dL (0.2-1.2); CK (CPK) 487 U/L (29-168); Calc. Creatinine Clearance 70 mL/min (70-130); Carbon Dioxide 32 mmol/L (23-31); Chloride 111 mmol/L (98-107); Estimated GFR-MDRD 80; Globulin 1.9 g/dL (2.4-3.5); Glucose 91 mg/dL (80-115); Magnesium 1.5 mg/dL (1.6-2.6); Phosphorus 3.2 mg/dL (2.3-4.7); Potassium 3.3 mmol/L (3.5-5.1); Sodium 147 mmol/L (136-145)
[2018-05-11] MEDS ORDERED: Magnesium Sulfate 3 GM in Sodium Chloride 0.9% 100 ML IVPB SCH (08:00)
[2018-05-11] MEDS: D5 1/2 NS w/40 mEq KCL 1,000 ML IV SCH ×2 (08:53→21:10)
[2018-05-11] MEDS: Cyanocobalamin (Vitamin B-12) 1,000 MCG TAB PO SCH (08:58)
[2018-05-11] MEDS: Potassium Chloride 20 MEQ TAB PO SCH ×2 (08:58→15:42)
[2018-05-11] MEDS: Famotidine 20 MG TAB PO SCH ×2 (08:58→20:22)
[2018-05-11] MEDS: clonazePAM 0.5 MG TAB PO SCH ×2 (08:58→20:22)
[2018-05-11] MEDS: Folic Acid 1 MG TAB PO SCH (08:58)
[2018-05-11] MEDS: FLUoxetine HCl 20 MG CAP PO SCH (08:58)
[2018-05-11] MEDS: Aspirin Chewable 81 MG TAB PO SCH (08:59)
[2018-05-11] MEDS: Docusate 100 MG CAP PO SCH ×2 (08:59→20:22)
[2018-05-11] MEDS: Multivit, Therapeutic 1 TAB PO SCH (08:59)
[2018-05-11] MEDS: Multivitamin W/ Minerals 1 TAB PO SCH (08:59)
[2018-05-11] MEDS ORDERED: Bisacodyl 5 MG TAB PO PRN (10:03)
[2018-05-11] MEDS ORDERED: Eucerin (Mineral Oil/Petrolatum,White) 30 gm Jar TOP PRN (10:03)
[2018-05-11] MEDS ORDERED: hydrALAZINE 20 MG/ML VIAL SLOW IVP PRN (10:03)
[2018-05-11] MEDS ORDERED: Cepastat Lozenges 1 LOZ PO PRN (10:03)
[2018-05-11] MEDS ORDERED: Loratadine 10 MG TAB PO PRN (10:03)
[2018-05-11] MEDS ORDERED: Sodium Chloride 0.65% Nasal 44 ML BOT EA NARE PRN (10:03)
[2018-05-11] MEDS ORDERED: Calcium Carbonate 500 MG ChewTAB PO PRN (10:03)
[2018-05-11] MEDS ORDERED: Bisacodyl 10 MG SUPP PR PRN (10:03)
[2018-05-11] MEDS ORDERED: Artificial Tears 18 DROP/0.9 ML EA EYE PRN (10:03)
[2018-05-11] MEDS ORDERED: Loperamide HCl 2 MG CAP PO PRN (10:03)
[2018-05-11] MEDS ORDERED: Diabetic Tussin 200 MG/10 ML UDCUP PO PRN (10:03)
[2018-05-11] MEDS ORDERED: Senokot S 8.6-50 MG TAB PO PRN (10:03)
--- NOTE | 2018-05-11 10:03 | PDOC.PN ---
- Subjective Encounter Start Date: 05/11/18 Encounter Start Time: 07:50 pt has cramp in hand, no diarrhoea, no chest pain - Objective Resuscitation Status - Order Detail: 05/09/18 08:38 Resuscitation Status Routine Resuscitation Status: FULL: Full Resuscitation MAR Reviewed: Yes Vital Signs & Weight: Vital Signs (12 hours) Temp Pulse Resp BP Pulse Ox 05/11/18 07:10 98.6 F 64 15 135/63 100 05/11/18 04:20 98.4 F 70 16 128/62 98 Weight Admit Weight 122 lb Weight 127 lb 7 oz I&O: 05/10/18 05/11/18 05/12/18 06:59 06:59 06:59 Intake Total 1980 6000 Output Total 1000 5500 Balance 980 500 Result Diagrams: 05/11/18 04:59 05/11/18 04:59 EKG Reviewed by me: Yes Phys Exam - Physical Examination Constitutional: NAD HEENT: PERRLA, moist MMs, sclera anicteric Neck: no JVD, supple Respiratory: no wheezing, no rales, no rhonchi Cardiovascular: RRR, no significant murmur, no rub Gastrointestinal: soft, non-tender, no distention, positive bowel sounds Musculoskeletal: no edema, pulses present Neurological: non-focal, normal sensation, moves all 4 limbs Lymphatic: no nodes Psychiatric: normal affect, A&O x 3 Skin: no rash, normal turgor Dx/Plan (1) HYACINTH (acute kidney injury) Code(s): N17.9 - ACUTE KIDNEY FAILURE, UNSPECIFIED Status: Resolved (2) Dehydration Code(s): E86.0 - DEHYDRATION Status: Resolved (3) Fall Code(s): W19.XXXA - UNSPECIFIED FALL, INITIAL ENCOUNTER Status: Acute (4) Hypernatremia Code(s): E87.0 - HYPEROSMOLALITY AND HYPERNATREMIA Status: Acute (5) Hypokalemia Code(s): E87.6 - HYPOKALEMIA Status: Acute (6) Rhabdomyolysis Code(s): M62.82 - RHABDOMYOLYSIS Status: Acute (7) Anxiety and depression Code(s): F41.9 - ANXIETY DISORDER, UNSPECIFIED; F32.9 - MAJOR DEPRESSIVE DISORDER, SINGLE EPISODE, UNSPECIFIED Status: Chronic (8) Bipolar disorder Code(s): F31.9 - BIPOLAR DISORDER, UNSPECIFIED Status: Chronic (9) Chronic anemia Code(s): D64.9 - ANEMIA, UNSPECIFIED Status: Chronic Comment: (10) Dyslipidemia Code(s): E78.5 - HYPERLIPIDEMIA, UNSPECIFIED Status: Chronic (11) HTN (hypertension) Code(s): I10 - ESSENTIAL (PRIMARY) HYPERTENSION Status: Chronic (12) Elevated troponin Code(s): R74.8 - ABNORMAL LEVELS OF OTHER SERUM ENZYMES Status: Acute Comment: due to rhabdomyolysis (13) Hypomagnesemia Code(s): E83.42 - HYPOMAGNESEMIA Status: Acute - Plan cont current plan of care, PT/OT * change IVF dex with 1/2 NS with KCL * replace potassium and magnesium * repeat labs tomorrow * medication reviewed as below * symptomatic treatment. Review of Systems - Review of Systems ENT: negative: Ear Pain, Ear Discharge, Nose Pain, Nose Discharge, Nose Congestion, Mouth Pain, Mouth Swelling, Throat Pain, Throat Swelling, Other Respiratory: negative: Cough, Dry, Shortness of Breath, Hemoptysis, SOB with Excertion, Pleuritic Pain, Sputum, Wheezing Cardiovascular: negative: chest pain, palpitations, orthopnea, paroxysmal nocturnal dyspnea, edema, light headedness, other Gastrointestinal: negative: Nausea, Vomiting, Abdominal Pain, Diarrhea, Constipation, Melena, Hematochezia, Other Genitourinary: negative: Dysuria, Frequency, Incontinence, Hematuria, Retention , Other Musculoskeletal: negative: Neck Pain, Shoulder Pain, Arm Pain, Back Pain, Hand Pain, Leg Pain, Foot Pain, Other Skin: negative: Rash, Lesions, [place], Bruising, Other - Medications/Allergies Allergies/Adverse Reactions: Allergies Allergy/AdvReac Type Severity Reaction Status Date / Time No Known Allergies Allergy Verified 05/09/18 16:34 Medications: Current Medications Acetaminophen (Tylenol) 1,000 mg PO Q6H PRN PRN Reason: Mild Pain (1-3) Last Admin: 05/11/18 06:05 Dose: 1,000 mg Aspirin (Aspirin Chewable) 81 mg PO DAILY [facility] Last Admin: 05/11/18 08:59 Dose: 81 mg Clonazepam (Klonopin) 0.25 mg PO BID [facility] Last Admin: 05/11/18 08:58 Dose: 0.25 mg Cyanocobalamin (Vitamin B-12) 1,000 mcg PO DAILY [facility] Last Admin: 05/11/18 08:58 Dose: 1,000 mcg Divalproex Sodium (Depakote Er) 1,000 mg PO DAILY [facility] Last Admin: 05/11/18 08:58 Dose: 1,000 mg Docusate Sodium (Colace) 100 mg PO BID [facility] Last Admin: 05/11/18 08:59 Dose: 100 mg Famotidine (Pepcid) 20 mg PO BID [facility] Last Admin: 05/11/18 08:58 Dose: 20 mg Fluoxetine HCl (Prozac) 60 mg PO DAILY [facility] Last Admin: 05/11/18 08:58 Dose: 60 mg Folic Acid (Folvite) 1 mg PO DAILY [facility] Last Admin: 05/11/18 08:58 Dose: 1 mg Potassium Chloride/Dextrose/Sod Cl (D5 1/2 Ns W/40 Meq Kcl) 1,000 mls @ 75 mls/ hr IV .[id number] [facility] Last Admin: 05/11/18 08:53 Dose: 1,000 mls Iron/Minerals/Multivitamins (Theragran M) 1 tab PO DAILY [facility] Last Admin: 05/11/18 08:59 Dose: 1 tab Multivitamins (Theragran) 1 tab PO DAILY [facility] Last Admin: 05/11/18 08:59 Dose: Not Given Ondansetron HCl (Zofran Odt) 4 mg PO Q6H PRN PRN Reason: Nausea/Vomiting Ondansetron HCl (Zofran) 4 mg IVP Q6H PRN PRN Reason: Nausea/Vomiting Fenofibric Acid ( Choline) [Fenofibric Acid] 135 Mg 0 each PO DAILY [facility] Potassium Chloride (K-Dur) 40 meq PO BID-[facility] Last Admin: 05/11/18 08:58 Dose: 40 meq
--- NOTE | 2018-05-11 17:04 | EKG ---
Test Reason : Blood Pressure : / mmHG Vent. Rate : 075 BPM Atrial Rate : 075 BPM P-R Int : 194 ms QRS Dur : 092 ms QT Int : 436 ms P-R-T Axes : 037 -30 016 degrees QTc Int : 486 ms Normal sinus rhythm Left axis deviation Left ventricular hypertrophy with repolarization abnormality Abnormal ECG ST depression V4 - V6 new from EKG of 09/07/2017 Confirmed by DIGNA TOUSSAINT ([id number]), order editor HOWIE HERNANDEZ ([id number]) on 05/11/2018 5:04:42 PM Referred By: Confirmed By:DIGNA TOUSSAINT
[2018-05-11] MEDS: HYDROcodone/Acetaminophen 5/325 mg Tablet PO PRN (18:10)
[2018-05-11] MEDS ORDERED: diphenhydrAMINE 50 MG/ML VIAL IVP SCH (19:00)
[2018-05-11] MEDS ORDERED: Morphine 4 MG/ML VIAL SLOW IVP SCH ×2 (19:00→20:45)
[2018-05-12] MEDS: tiZANidine HCl 4 MG TAB PO PRN (05:50)
[2018-05-12] MEDS: clonazePAM 0.5 MG TAB PO SCH ×2 (08:44→21:58)
[2018-05-12] MEDS: Multivit, Therapeutic 1 TAB PO SCH (08:46)
[2018-05-12] MEDS: Potassium Chloride 20 MEQ TAB PO SCH ×2 (08:46→17:02)
[2018-05-12] MEDS: Multivitamin W/ Minerals 1 TAB PO SCH (08:46)
[2018-05-12] MEDS: Cyanocobalamin (Vitamin B-12) 1,000 MCG TAB PO SCH (08:46)
[2018-05-12] MEDS: Fenofibrate Nanocrystallized 145 MG TAB PO SCH (08:46)
[2018-05-12] MEDS: FLUoxetine HCl 20 MG CAP PO SCH (08:46)
[2018-05-12] MEDS: Folic Acid 1 MG TAB PO SCH (08:47)
[2018-05-12] MEDS: Aspirin Chewable 81 MG TAB PO SCH (08:47)
[2018-05-12] MEDS: Famotidine 20 MG TAB PO SCH ×2 (08:47→21:58)
[2018-05-12] MEDS: Docusate 100 MG CAP PO SCH ×2 (08:52→21:58)
[2018-05-12] MEDS ORDERED: Morphine 2 MG/ML SYRINGE SLOW IVP PRN (08:58)
[2018-05-12] MEDS: Ketorolac Tromethamine 30 MG/ML VIAL IVP PRN ×2 (09:17→21:57)
[2018-05-12] MEDS: cefTRIAXone\\ROCEPHIN 2 GM in Sodium Chloride 0.9% 100 ML IVPB SCH (09:19)
[2018-05-12 09:27] LABS: #Eosinphils 0.2 thou/uL (0.0-0.7); #Lymphocytes 1.3 thou/uL (1.20-3.40); #Monocytes 0.3 thou/uL (0.11-0.59); #Neutrophils 4.2 thou/uL (1.40-6.50); %Basophils 0.1 % (0.0-1.0); %Eosinophils 2.6 % (0.0-10.0); %Lymphocytes 22.4 % (21.0-51.0); %Monocytes 4.4 % (0.0-10.0); %Neutrophils 70.5 % (42.0-75.0); Hemoglobin 11.2 g/dL (12.0-16.0); Mean Corpuscular HGB CONC 32.7 g/dL (32.0-36.0); Mean Platelet Volume 5.9 fL (7.4-10.4); Platelet Count 201 thou/uL (130-400); RBC Distribution Width 14.2 % (11.5-14.5); Red Blood Cell (RBC) Count 3.28 mill/uL (4.20-5.40)
--- NOTE | 2018-05-12 09:46 | PDOC.PN ---
- Subjective Encounter Start Date: 05/12/18 Encounter Start Time: 08:30 pt has bilateral hand pain since yesterday, she has knuckle erythema and unable to open hand fully - Objective Resuscitation Status - Order Detail: 05/09/18 08:38 Resuscitation Status Routine Resuscitation Status: FULL: Full Resuscitation MAR Reviewed: Yes Vital Signs & Weight: Vital Signs (12 hours) Temp Pulse Resp BP Pulse Ox 05/12/18 08:30 97.8 F 68 18 96/49 L 96 05/12/18 05:20 98.6 F 76 20 139/76 96 05/12/18 00:00 99.1 F 74 18 123/65 94 L Weight Admit Weight 122 lb Weight 127 lb 9 oz I&O: 05/11/18 05/12/18 05/13/18 06:59 06:59 06:59 Intake Total 6000 1325 Output Total 5500 3300 Balance 500 -1975 Result Diagrams: 05/12/18 09:06 05/11/18 04:59 EKG Reviewed by me: Yes Phys Exam - Physical Examination Constitutional: NAD HEENT: PERRLA, moist MMs, sclera anicteric Neck: no JVD, supple Respiratory: no wheezing, no rales, no rhonchi Cardiovascular: RRR, no significant murmur, no rub Gastrointestinal: soft, non-tender, no distention, positive bowel sounds both hand swelling and tenderness noted Neurological: non-focal, normal sensation Lymphatic: no nodes Psychiatric: normal affect Skin: no rash, normal turgor Dx/Plan (1) HYACINTH (acute kidney injury) Code(s): N17.9 - ACUTE KIDNEY FAILURE, UNSPECIFIED Status: Resolved (2) Dehydration Code(s): E86.0 - DEHYDRATION Status: Resolved (3) Fall Code(s): W19.XXXA - UNSPECIFIED FALL, INITIAL ENCOUNTER Status: Acute (4) Hypernatremia Code(s): E87.0 - HYPEROSMOLALITY AND HYPERNATREMIA Status: Acute (5) Hypokalemia Code(s): E87.6 - HYPOKALEMIA Status: Acute (6) Rhabdomyolysis Code(s): M62.82 - RHABDOMYOLYSIS Status: Acute (7) Anxiety and depression Code(s): F41.9 - ANXIETY DISORDER, UNSPECIFIED; F32.9 - MAJOR DEPRESSIVE DISORDER, SINGLE EPISODE, UNSPECIFIED Status: Chronic (8) Bipolar disorder Code(s): F31.9 - BIPOLAR DISORDER, UNSPECIFIED Status: Chronic (9) Chronic anemia Code(s): D64.9 - ANEMIA, UNSPECIFIED Status: Chronic Comment: (10) Dyslipidemia Code(s): E78.5 - HYPERLIPIDEMIA, UNSPECIFIED Status: Chronic (11) HTN (hypertension) Code(s): I10 - ESSENTIAL (PRIMARY) HYPERTENSION Status: Chronic (12) Elevated troponin Code(s): R74.8 - ABNORMAL LEVELS OF OTHER SERUM ENZYMES Status: Acute Comment: due to rhabdomyolysis (13) Hypomagnesemia Code(s): E83.42 - HYPOMAGNESEMIA Status: Acute - Plan cont current plan of care, continue antibiotics * will check cbc, cmp, crp, uric acid today * will get both hand xray * will consult ortho * add morphin and toradol for pain control * medication reviewed as below * symptomatic treatment. * continue IVF * will repeat labs tomorrow Review of Systems - Review of Systems Eyes: negative: Pain, Vision Change, Conjunctivae Inflammation, Eyelid Inflammation, Redness, Other ENT: negative: Ear Pain, Ear Discharge, Nose Pain, Nose Discharge, Nose Congestion, Mouth Pain, Mouth Swelling, Throat Pain, Throat Swelling, Other Respiratory: negative: Cough, Dry, Shortness of Breath, Hemoptysis, SOB with Excertion, Pleuritic Pain, Sputum, Wheezing Cardiovascular: negative: chest pain, palpitations, orthopnea, paroxysmal nocturnal dyspnea, edema, light headedness, other Gastrointestinal: negative: Nausea, Vomiting, Abdominal Pain, Diarrhea, Constipation, Melena, Hematochezia, Other Genitourinary: negative: Dysuria, Frequency, Incontinence, Hematuria, Retention , Other Musculoskeletal: Hand Pain. negative: Neck Pain, Shoulder Pain, Arm Pain, Back Pain, Leg Pain, Foot Pain, Other - Medications/Allergies Allergies/Adverse Reactions: Allergies Allergy/AdvReac Type Severity Reaction Status Date / Time No Known Allergies Allergy Verified 05/09/18 16:34 Medications: Current Medications Acetaminophen (Tylenol) 1,000 mg PO Q6H PRN PRN Reason: Mild Pain (1-3) Last Admin: 05/11/18 06:05 Dose: 1,000 mg Hydrocodone Bitart/Acetaminophen (Pitts 5/325) 1 tab PO Q4H PRN PRN Reason: Moderate Pain (4-6) Last Admin: 05/11/18 18:10 Dose: 1 tab Artificial Tears (Tears Naturale) 2 drop EA EYE PRN PRN PRN Reason: Dry Eyes Aspirin (Aspirin Chewable) 81 mg PO DAILY [facility] Last Admin: 05/12/18 08:47 Dose: 81 mg Bisacodyl (Dulcolax) 10 mg [place] DAILYPRN PRN PRN Reason: Constipation Bisacodyl (Dulcolax) 10 mg PO DAILYPRN PRN PRN Reason: Constipation Calcium Carbonate (Tums) 1,000 mg PO Q4H PRN PRN Reason: Heartburn or Indigestion Clonazepam (Klonopin) 0.25 mg PO BID [facility] Last Admin: 05/12/18 08:44 Dose: 0.25 mg Cyanocobalamin (Vitamin B-12) 1,000 mcg PO DAILY [facility] Last Admin: 05/12/18 08:46 Dose: 1,000 mcg Divalproex Sodium (Depakote Er) 1,000 mg PO DAILY [facility] Last Admin: 05/12/18 08:46 Dose: 1,000 mg Docusate Sodium (Colace) 100 mg PO BID [facility] Last Admin: 05/12/18 08:52 Dose: 100 mg Famotidine (Pepcid) 20 mg PO BID [facility] Last Admin: 05/12/18 08:47 Dose: 20 mg Fenofibrate (Tricor) 145 mg PO DAILY [facility] Last Admin: 05/12/18 08:46 Dose: 145 mg Fluoxetine HCl (Prozac) 60 mg PO DAILY [facility] Last Admin: 05/12/18 08:46 Dose: 60 mg Folic Acid (Folvite) 1 mg PO DAILY [facility] Last Admin: 05/12/18 08:47 Dose: 1 mg Guaifenesin (Robitussin Sf) 200 mg PO Q4H PRN PRN Reason: Cough Hydralazine HCl (Apresoline) 10 mg SLOW IVP Q4H PRN PRN Reason: SBP > 180 and HR < 70 Potassium Chloride/Dextrose/Sod Cl (D5 1/2 Ns W/40 Meq Kcl) 1,000 mls @ 75 mls/ hr IV .[id number] [facility] Last Admin: 05/11/18 21:10 Dose: 1,000 mls Ceftriaxone Sodium 2 gm/ (Sodium Chloride) 100 mls @ 200 mls/hr IVPB Q24HR [facility] Last Admin: 05/12/18 09:19 Dose: 100 mls Iron/Minerals/Multivitamins (Theragran M) 1 tab PO DAILY [facility] Last Admin: 05/12/18 08:46 Dose: 1 tab Ketorolac Tromethamine (Toradol) 15 mg IVP Q6H PRN PRN Reason: Pain 4-6 Stop: 05/17/18 08:54 Last Admin: 05/12/18 09:17 Dose: 15 mg Loperamide HCl (Imodium) 2 mg PO PRN PRN PRN Reason: Diarrhea/Loose Stools Loratadine (Claritin) 10 mg PO DAILYPRN PRN PRN Reason: Sinus Symptoms Mineral Oil/White Petrolatum (Eucerin Cream) 0 gm TOP BIDPRN PRN PRN Reason: Dry Skin Morphine Sulfate (Morphine) 2 mg SLOW IVP Q4H PRN PRN Reason: PAIN 7-10 Multivitamins (Theragran) 1 tab PO DAILY [facility] Last Admin: 05/12/18 08:46 Dose: 1 tab Ondansetron HCl (Zofran Odt) 4 mg PO Q6H PRN PRN Reason: Nausea/Vomiting Ondansetron HCl (Zofran) 4 mg IVP Q6H PRN PRN Reason: Nausea/Vomiting Potassium Chloride (K-Dur) 40 meq PO BID-[facility] Last Admin: 05/12/18 08:46 Dose: 40 meq Senna/Docusate Sodium (Senokot S) 2 tab PO BID PRN PRN Reason: Constipation Sodium Chloride ([place] Nasal [place] 0.65%) 0 ml EA NARE QIDPRN PRN PRN Reason: Nasal Congestion Sodium Chloride (Flush - Normal Saline) 10 ml IVF PRN PRN PRN Reason: Saline Flush Throat Lozenges (Cepastat Lozenges) 1 armond PO Q2H PRN PRN Reason: Sore Throat Tizanidine HCl (Zanaflex) 4 mg PO BIDPRN PRN PRN Reason: Muscle Spasm Last Admin: 05/12/18 05:50 Dose: 4 mg
[2018-05-12 09:49] LABS: ALT (SGPT) 19 U/L (8-55); AST (SGOT) 27 U/L (5-34); Albumin 2.9 g/dL (3.4-4.8); Alkaline Phosphatase 29 U/L (40-150); Anion Gap 10 mmol/L (10-20); BUN (Urea Nitrogen) 7 mg/dL (9.8-20.1); Bilirubin, Total 0.3 mg/dL (0.2-1.2); CK (CPK) 272 U/L (29-168); CRP (Inflammatory) Less than 0.50 mg/dL (= or < 0.5); Calc. Creatinine Clearance 64 mL/min (70-130); Calcium 6.4 mg/dL (7.8-10.44); Carbon Dioxide 27 mmol/L (23-31); Chloride 109 mmol/L (98-107); Estimated GFR-MDRD 71; Globulin 1.7 g/dL (2.4-3.5); Glucose 174 mg/dL (80-115); Magnesium 4.1 mg/dL (1.6-2.6); Potassium 4.3 mmol/L (3.5-5.1); Protein, Total 4.6 g/dL (6.0-8.3); Sodium 142 mmol/L (136-145); Uric Acid 4.2 mg/dL (2.6-6.0)
[2018-05-12] MEDS: Dextrose 5 %-0.45 % NaCl 1,000 ML IV SCH ×2 (10:35→21:59)
--- NOTE | 2018-05-12 10:37 | RAD ---
LEFT HAND 3 VIEWS: Date: 05/12/18 HISTORY: Hand swelling and pain. FINDINGS: Carpals appear normally aligned. Metacarpals are intact. MCP joints unremarkable. IP joints unremarka ble with mild degenerative change at the DIP joints. No fracture. No evidence of inflammatory arthrop athy. IMPRESSION: Mild degenerative change. POS: [facility]
--- NOTE | 2018-05-12 10:38 | RAD ---
RIGHT HAND 3 VIEWS: Date: 05/12/18 HISTORY: Hand pain and swelling. FINDINGS/IMPRESSION: Carpals unremarkable. Metacarpals unremarkable. The MCP joint is unremarkable with mild narrowing and degenerative change at the first MCP joint. IP joints show mild degenerative change. No erosive tracy ge or evidence of inflammatory arthropathy. No acute fracture. POS: [facility]
[2018-05-12] MEDS ORDERED: methylPREDNISolone Sod Succ 40 MG VIAL IVP SCH (16:30)
[2018-05-13] MEDS: methylPREDNISolone Sod Succ 40 MG VIAL IVP SCH ×2 (01:28→05:48)
[2018-05-13 06:36] LABS: Anion Gap 14 mmol/L (10-20); BUN (Urea Nitrogen) 9 mg/dL (9.8-20.1); Calc. Creatinine Clearance 58 mL/min (70-130); Calcium 7.2 mg/dL (7.8-10.44); Carbon Dioxide 25 mmol/L (23-31); Chloride 108 mmol/L (98-107); Estimated GFR-MDRD 65; Glucose 172 mg/dL (80-115); Potassium 5.6 mmol/L (3.5-5.1); Sodium 141 mmol/L (136-145)
[2018-05-13 07:41] LABS: #Lymphocytes 1.1 thou/uL (1.20-3.40); #Monocytes 0.1 thou/uL (0.11-0.59); #Neutrophils 5.1 thou/uL (1.40-6.50); %Basophils 0.3 % (0.0-1.0); %Lymphocytes 16.9 % (21.0-51.0); %Monocytes 1.8 % (0.0-10.0); Hemoglobin 12.9 g/dL (12.0-16.0); Mean Corpuscular Hemoglobin 33.8 pg (27.0-31.0); Platelet Count 235 thou/uL (130-400); RBC Distribution Width 13.6 % (11.5-14.5); White Blood Cell (WBC) Count 6.4 thou/uL (4.8-10.8)
[2018-05-13] MEDS: FLUoxetine HCl 20 MG CAP PO SCH (09:05)
[2018-05-13] MEDS: clonazePAM 0.5 MG TAB PO SCH ×2 (09:06→21:38)
[2018-05-13] MEDS: Fenofibrate Nanocrystallized 145 MG TAB PO SCH (09:06)
[2018-05-13] MEDS: Docusate 100 MG CAP PO SCH ×2 (09:06→21:40)
[2018-05-13] MEDS: Aspirin Chewable 81 MG TAB PO SCH (09:06)
[2018-05-13] MEDS: predniSONE 20 MG TAB PO SCH (09:06)
[2018-05-13] MEDS: Famotidine 20 MG TAB PO SCH ×2 (09:06→21:40)
[2018-05-13] MEDS: Folic Acid 1 MG TAB PO SCH (09:07)
[2018-05-13] MEDS: cefTRIAXone\\ROCEPHIN 2 GM in Sodium Chloride 0.9% 100 ML IVPB SCH (09:07)
[2018-05-13] MEDS: Multivitamin W/ Minerals 1 TAB PO SCH (09:07)
[2018-05-13] MEDS: Cyanocobalamin (Vitamin B-12) 1,000 MCG TAB PO SCH (09:07)
--- NOTE | 2018-05-13 11:08 | PDOC.PN ---
- Subjective Encounter Start Date: 05/13/18 Encounter Start Time: 08:10 Patient seen and examined. No new complaints. No overnight events - Objective Resuscitation Status - Order Detail: 05/09/18 08:38 Resuscitation Status Routine Resuscitation Status: FULL: Full Resuscitation MAR Reviewed: Yes Vital Signs & Weight: Vital Signs (12 hours) Temp Pulse Resp BP Pulse Ox 05/13/18 09:06 97 05/13/18 07:46 98.6 F 65 18 128/58 L 97 05/13/18 04:00 98.5 F 69 18 125/60 97 05/13/18 00:00 98.8 F Weight Admit Weight 122 lb Weight 126 lb 4.8 oz I&O: 05/12/18 05/13/18 05/14/18 06:59 06:59 06:59 Intake Total 1325 2920 Output Total 3300 3500 Balance -1974 - Result Diagrams: 05/13/18 07:07 05/13/18 06:06 EKG Reviewed by me: Yes (nsr) Phys Exam - Physical Examination Constitutional: NAD HEENT: PERRLA, moist MMs, sclera anicteric Neck: no JVD, supple Respiratory: no wheezing, no rales, no rhonchi Cardiovascular: RRR, no significant murmur, no rub Gastrointestinal: soft, non-tender, no distention, positive bowel sounds Musculoskeletal: no edema, pulses present Neurological: non-focal, normal sensation, moves all 4 limbs Lymphatic: no nodes Psychiatric: normal affect, A&O x 3 Skin: no rash, normal turgor Dx/Plan (1) HYACINTH (acute kidney injury) Code(s): N17.9 - ACUTE KIDNEY FAILURE, UNSPECIFIED Status: Resolved (2) Dehydration Code(s): E86.0 - DEHYDRATION Status: Resolved (3) Fall Code(s): W19.XXXA - UNSPECIFIED FALL, INITIAL ENCOUNTER Status: Acute (4) Hypernatremia Code(s): E87.0 - HYPEROSMOLALITY AND HYPERNATREMIA Status: Acute (5) Hypokalemia Code(s): E87.6 - HYPOKALEMIA Status: Acute (6) Rhabdomyolysis Code(s): M62.82 - RHABDOMYOLYSIS Status: Acute (7) Anxiety and depression Code(s): F41.9 - ANXIETY DISORDER, UNSPECIFIED; F32.9 - MAJOR DEPRESSIVE DISORDER, SINGLE EPISODE, UNSPECIFIED Status: Chronic (8) Bipolar disorder Code(s): F31.9 - BIPOLAR DISORDER, UNSPECIFIED Status: Chronic (9) Chronic anemia Code(s): D64.9 - ANEMIA, UNSPECIFIED Status: Chronic Comment: (10) Dyslipidemia Code(s): E78.5 - HYPERLIPIDEMIA, UNSPECIFIED Status: Chronic (11) HTN (hypertension) Code(s): I10 - ESSENTIAL (PRIMARY) HYPERTENSION Status: Chronic (12) Elevated troponin Code(s): R74.8 - ABNORMAL LEVELS OF OTHER SERUM ENZYMES Status: Acute Comment: due to rhabdomyolysis (13) Hypomagnesemia Code(s): E83.42 - HYPOMAGNESEMIA Status: Acute - Plan cont current plan of care, 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 * DC IVF Review of Systems - Review of Systems ENT: negative: Ear Pain, Ear Discharge, Nose Pain, Nose Discharge, Nose Congestion, Mouth Pain, Mouth Swelling, Throat Pain, Throat Swelling, Other Respiratory: negative: Cough, Dry, Shortness of Breath, Hemoptysis, SOB with Excertion, Pleuritic Pain, Sputum, Wheezing Cardiovascular: negative: chest pain, palpitations, orthopnea, paroxysmal nocturnal dyspnea, edema, light headedness, other Gastrointestinal: negative: Nausea, Vomiting, Abdominal Pain, Diarrhea, Constipation, Melena, Hematochezia, Other Genitourinary: negative: Dysuria, Frequency, Incontinence, Hematuria, Retention , Other Musculoskeletal: negative: Neck Pain, Shoulder Pain, Arm Pain, Back Pain, Hand Pain, Leg Pain, Foot Pain, Other - Medications/Allergies Allergies/Adverse Reactions: Allergies Allergy/AdvReac Type Severity Reaction Status Date / Time No Known Allergies Allergy Verified 05/09/18 16:34 Medications: Current Medications Acetaminophen (Tylenol) 1,000 mg PO Q6H PRN PRN Reason: Mild Pain (1-3) Last Admin: 05/11/18 06:05 Dose: 1,000 mg Hydrocodone Bitart/Acetaminophen ([place] 5/325) 1 tab PO Q4H PRN PRN Reason: Moderate Pain (4-6) Last Admin: 05/11/18 18:10 Dose: 1 tab Artificial Tears (Tears Naturale) 2 drop EA EYE PRN PRN PRN Reason: Dry Eyes Aspirin (Aspirin Chewable) 81 mg PO DAILY [facility] Last Admin: 05/13/18 09:06 Dose: 81 mg Bisacodyl (Dulcolax) 10 mg [place] DAILYPRN PRN PRN Reason: Constipation Bisacodyl (Dulcolax) 10 mg PO DAILYPRN PRN PRN Reason: Constipation Calcium Carbonate (Tums) 1,000 mg PO Q4H PRN PRN Reason: Heartburn or Indigestion Clonazepam (Klonopin) 0.25 mg PO BID [facility] Last Admin: 05/13/18 09:06 Dose: 0.25 mg Cyanocobalamin (Vitamin B-12) 1,000 mcg PO DAILY [facility] Last Admin: 05/13/18 09:07 Dose: 1,000 mcg Divalproex Sodium (Depakote Er) 1,000 mg PO DAILY [facility] Last Admin: 05/13/18 09:07 Dose: 1,000 mg Docusate Sodium (Colace) 100 mg PO BID [facility] Last Admin: 05/13/18 09:06 Dose: 100 mg Famotidine (Pepcid) 20 mg PO BID [facility] Last Admin: 05/13/18 09:06 Dose: 20 mg Fenofibrate (Tricor) 145 mg PO DAILY [facility] Last Admin: 05/13/18 09:06 Dose: 145 mg Fluoxetine HCl (Prozac) 60 mg PO DAILY [facility] Last Admin: 05/13/18 09:05 Dose: 60 mg Folic Acid (Folvite) 1 mg PO DAILY [facility] Last Admin: 05/13/18 09:07 Dose: 1 mg Guaifenesin (Robitussin Sf) 200 mg PO Q4H PRN PRN Reason: Cough Hydralazine HCl (Apresoline) 10 mg SLOW IVP Q4H PRN PRN Reason: SBP > 180 and HR < 70 Ceftriaxone Sodium 2 gm/ (Sodium Chloride) 100 mls @ 200 mls/hr IVPB Q24HR [facility] Last Admin: 05/13/18 09:07 Dose: 100 mls Iron/Minerals/Multivitamins (Theragran M) 1 tab PO DAILY [facility] Last Admin: 05/13/18 09:07 Dose: 1 tab Loperamide HCl (Imodium) 2 mg PO PRN PRN PRN Reason: Diarrhea/Loose Stools Loratadine (Claritin) 10 mg PO DAILYPRN PRN PRN Reason: Sinus Symptoms Mineral Oil/White Petrolatum (Eucerin Cream) 0 gm TOP BIDPRN PRN PRN Reason: Dry Skin Morphine Sulfate (Morphine) 2 mg SLOW IVP Q4H PRN PRN Reason: PAIN 7-10 Ondansetron HCl (Zofran Odt) 4 mg PO Q6H PRN PRN Reason: Nausea/Vomiting Ondansetron HCl (Zofran) 4 mg IVP Q6H PRN PRN Reason: Nausea/Vomiting Prednisone (Prednisone) 20 mg PO [facility] Last Admin: 05/13/18 09:06 Dose: 20 mg Senna/Docusate Sodium (Senokot S) 2 tab PO BID PRN PRN Reason: Constipation Sodium Chloride ([place] Nasal [place] 0.65%) 0 ml EA NARE QIDPRN PRN PRN Reason: Nasal Congestion Sodium Chloride (Flush - Normal Saline) 10 ml IVF PRN PRN PRN Reason: Saline Flush Throat Lozenges (Cepastat Lozenges) 1 armond PO Q2H PRN PRN Reason: Sore Throat Tizanidine HCl (Zanaflex) 4 mg PO BIDPRN PRN PRN Reason: Muscle Spasm Last Admin: 05/12/18 05:50 Dose: 4 mg
--- NOTE | 2018-05-13 16:49 | CON ---
DATE OF CONSULTATION: 05/12/2018 HISTORY OF PRESENT ILLNESS: Ms. Hernández is a 62-year-old female, who presented after falling out of her bed at home. She was attempting to stand up and turned and when able to stand up on her own, she was able to yell and a neighbor was then able to notify EMS and they brought her to the hospital. She was noted at that time to have a potassium level of 1.8 and after she was admitted the following day, she developed significant pain and swelling in both hands, associated with some erythema over the dorsum of the hands. I was consulted to evaluate her hand. She states that she has never had a problem with her hands in the past that she did not have any increased activity or any type of trauma to her hands, but it just happened when she got into the hospital. She does not know anything that she is allergic to. PHYSICAL EXAMINATION: On physical exam, both hands indeed are quite swollen. She has very little flexion and extension of her digits. They are held in a slightly flexed position. She has some decreased sensation probably due to the swelling, but she is unable to fully flex and extend her digits and has difficult time with any type of flexion and extension of the wrist. I reviewed the x-rays of both hands. There is no arthritis in her joints in the wrist or the hand. There is some demineralization consistent with osteoporosis in hands, but no bony abnormalities other than that. IMPRESSION: Bilateral acute pain and swelling in both hands, sounds more rheumatologic type problem, possibly reaction to some of the medication that she has received since she has gotten to the hospital. PLAN: Orthopedically, I do not have a whole lot to offer, but it would seem reasonable that most of this is inflammatory type process and would recommend starting her on some type of corticosteroid. Job ID: [id number]
[2018-05-14] MEDS: Fenofibrate Nanocrystallized 145 MG TAB PO SCH (08:20)
[2018-05-14] MEDS: clonazePAM 0.5 MG TAB PO SCH ×2 (08:20→20:35)
[2018-05-14] MEDS: FLUoxetine HCl 20 MG CAP PO SCH (08:21)
[2018-05-14] MEDS: predniSONE 20 MG TAB PO SCH (08:21)
[2018-05-14] MEDS: Famotidine 20 MG TAB PO SCH ×2 (08:21→20:34)
[2018-05-14] MEDS: Aspirin Chewable 81 MG TAB PO SCH (08:22)
[2018-05-14] MEDS: Cyanocobalamin (Vitamin B-12) 1,000 MCG TAB PO SCH (08:22)
[2018-05-14] MEDS: Folic Acid 1 MG TAB PO SCH (08:22)
[2018-05-14] MEDS: Multivitamin W/ Minerals 1 TAB PO SCH (08:22)
[2018-05-14] MEDS: cefTRIAXone\\ROCEPHIN 2 GM in Sodium Chloride 0.9% 100 ML IVPB SCH (08:22)
[2018-05-14] MEDS: Docusate 100 MG CAP PO SCH ×2 (08:23→20:34)
[2018-05-14 10:00] LABS: Anion Gap 11 mmol/L (10-20); BUN (Urea Nitrogen) 15 mg/dL (9.8-20.1); Calc. Creatinine Clearance 56 mL/min (70-130); Calcium 7.7 mg/dL (7.8-10.44); Carbon Dioxide 32 mmol/L (23-31); Chloride 104 mmol/L (98-107); Estimated GFR-MDRD 62; Glucose 98 mg/dL (80-115); Potassium 3.9 mmol/L (3.5-5.1); Sodium 143 mmol/L (136-145)
--- NOTE | 2018-05-14 12:05 | PDOC.PN ---
- Subjective Encounter Start Date: 05/14/18 Encounter Start Time: 08:30 Patient seen and examined. No new complaints. No overnight events - Objective Resuscitation Status - Order Detail: 05/09/18 08:38 Resuscitation Status Routine Resuscitation Status: FULL: Full Resuscitation MAR Reviewed: Yes Vital Signs & Weight: Vital Signs (12 hours) Temp Pulse Resp BP Pulse Ox 05/14/18 07:54 98.6 F 78 20 125/68 94 L Weight Admit Weight 122 lb Weight 126 lb 4.8 oz I&O: 05/13/18 05/14/18 05/15/18 06:59 06:59 06:59 Intake Total 2920 500 Output Total 3500 Balance -580 500 Result Diagrams: 05/13/18 07:07 05/14/18 09:11 Phys Exam - Physical Examination Constitutional: NAD HEENT: PERRLA, moist MMs, sclera anicteric Neck: no JVD, supple Respiratory: no wheezing, no rales, no rhonchi Cardiovascular: RRR, no significant murmur, no rub Gastrointestinal: soft, non-tender, no distention, positive bowel sounds Musculoskeletal: no edema, pulses present Neurological: non-focal, normal sensation Lymphatic: no nodes Psychiatric: normal affect Skin: no rash, normal turgor Dx/Plan (1) HYACINTH (acute kidney injury) Code(s): N17.9 - ACUTE KIDNEY FAILURE, UNSPECIFIED Status: Resolved (2) Dehydration Code(s): E86.0 - DEHYDRATION Status: Resolved (3) Fall Code(s): W19.XXXA - UNSPECIFIED FALL, INITIAL ENCOUNTER Status: Acute (4) Hypernatremia Code(s): E87.0 - HYPEROSMOLALITY AND HYPERNATREMIA Status: Acute (5) Hypokalemia Code(s): E87.6 - HYPOKALEMIA Status: Acute (6) Rhabdomyolysis Code(s): M62.82 - RHABDOMYOLYSIS Status: Acute (7) Anxiety and depression Code(s): F41.9 - ANXIETY DISORDER, UNSPECIFIED; F32.9 - MAJOR DEPRESSIVE DISORDER, SINGLE EPISODE, UNSPECIFIED Status: Chronic (8) Bipolar disorder Code(s): F31.9 - BIPOLAR DISORDER, UNSPECIFIED Status: Chronic (9) Chronic anemia Code(s): D64.9 - ANEMIA, UNSPECIFIED Status: Chronic Comment: (10) Dyslipidemia Code(s): E78.5 - HYPERLIPIDEMIA, UNSPECIFIED Status: Chronic (11) HTN (hypertension) Code(s): I10 - ESSENTIAL (PRIMARY) HYPERTENSION Status: Chronic (12) Elevated troponin Code(s): R74.8 - ABNORMAL LEVELS OF OTHER SERUM ENZYMES Status: Acute Comment: due to rhabdomyolysis (13) Hypomagnesemia Code(s): E83.42 - HYPOMAGNESEMIA Status: Acute - 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 Review of Systems - Review of Systems ENT: negative: Ear Pain, Ear Discharge, Nose Pain, Nose Discharge, Nose Congestion, Mouth Pain, Mouth Swelling, Throat Pain, Throat Swelling, Other Respiratory: negative: Cough, Dry, Shortness of Breath, Hemoptysis, SOB with Excertion, Pleuritic Pain, Sputum, Wheezing Cardiovascular: negative: chest pain, palpitations, orthopnea, paroxysmal nocturnal dyspnea, edema, light headedness, other Gastrointestinal: negative: Nausea, Vomiting, Abdominal Pain, Diarrhea, Constipation, Melena, Hematochezia, Other Genitourinary: negative: Dysuria, Frequency, Incontinence, Hematuria, Retention , Other Musculoskeletal: negative: Neck Pain, Shoulder Pain, Arm Pain, Back Pain, Hand Pain, Leg Pain, Foot Pain, Other - Medications/Allergies Allergies/Adverse Reactions: Allergies Allergy/AdvReac Type Severity Reaction Status Date / Time No Known Allergies Allergy Verified 05/09/18 16:34 Medications: Current Medications Acetaminophen (Tylenol) 1,000 mg PO Q6H PRN PRN Reason: Mild Pain (1-3) Last Admin: 05/11/18 06:05 Dose: 1,000 mg Hydrocodone Bitart/Acetaminophen ([place] 5/325) 1 tab PO Q4H PRN PRN Reason: Moderate Pain (4-6) Last Admin: 05/11/18 18:10 Dose: 1 tab Artificial Tears (Tears Naturale) 2 drop EA EYE PRN PRN PRN Reason: Dry Eyes Aspirin (Aspirin Chewable) 81 mg PO DAILY [facility] Last Admin: 05/14/18 08:22 Dose: 81 mg Bisacodyl (Dulcolax) 10 mg [place] DAILYPRN PRN PRN Reason: Constipation Bisacodyl (Dulcolax) 10 mg PO DAILYPRN PRN PRN Reason: Constipation Calcium Carbonate (Tums) 1,000 mg PO Q4H PRN PRN Reason: Heartburn or Indigestion Clonazepam (Klonopin) 0.25 mg PO BID [facility] Last Admin: 05/14/18 08:20 Dose: 0.25 mg Cyanocobalamin (Vitamin B-12) 1,000 mcg PO DAILY [facility] Last Admin: 05/14/18 08:22 Dose: 1,000 mcg Divalproex Sodium (Depakote Er) 1,000 mg PO DAILY [facility] Last Admin: 05/14/18 08:22 Dose: 1,000 mg Docusate Sodium (Colace) 100 mg PO BID [facility] Last Admin: 05/14/18 08:23 Dose: Not Given Famotidine (Pepcid) 20 mg PO BID [facility] Last Admin: 05/14/18 08:21 Dose: 20 mg Fenofibrate (Tricor) 145 mg PO DAILY [facility] Last Admin: 05/14/18 08:20 Dose: 145 mg Fluoxetine HCl (Prozac) 60 mg PO DAILY [facility] Last Admin: 05/14/18 08:21 Dose: 60 mg Folic Acid (Folvite) 1 mg PO DAILY [facility] Last Admin: 05/14/18 08:22 Dose: 1 mg Guaifenesin (Robitussin Sf) 200 mg PO Q4H PRN PRN Reason: Cough Hydralazine HCl (Apresoline) 10 mg SLOW IVP Q4H PRN PRN Reason: SBP > 180 and HR < 70 Iron/Minerals/Multivitamins (Theragran M) 1 tab PO DAILY [facility] Last Admin: 05/14/18 08:22 Dose: 1 tab Loperamide HCl (Imodium) 2 mg PO PRN PRN PRN Reason: Diarrhea/Loose Stools Loratadine (Claritin) 10 mg PO DAILYPRN PRN PRN Reason: Sinus Symptoms Mineral Oil/White Petrolatum (Eucerin Cream) 0 gm TOP BIDPRN PRN PRN Reason: Dry Skin Morphine Sulfate (Morphine) 2 mg SLOW IVP Q4H PRN PRN Reason: PAIN 7-10 Ondansetron HCl (Zofran Odt) 4 mg PO Q6H PRN PRN Reason: Nausea/Vomiting Ondansetron HCl (Zofran) 4 mg IVP Q6H PRN PRN Reason: Nausea/Vomiting Prednisone (Prednisone) 20 mg PO [facility] Last Admin: 05/14/18 08:21 Dose: 20 mg Senna/Docusate Sodium (Senokot S) 2 tab PO BID PRN PRN Reason: Constipation Sodium Chloride ([place] Nasal [place] 0.65%) 0 ml EA NARE QIDPRN PRN PRN Reason: Nasal Congestion Sodium Chloride (Flush - Normal Saline) 10 ml IVF PRN PRN PRN Reason: Saline Flush Throat Lozenges (Cepastat Lozenges) 1 armond PO Q2H PRN PRN Reason: Sore Throat Tizanidine HCl (Zanaflex) 4 mg PO BIDPRN PRN PRN Reason: Muscle Spasm Last Admin: 05/12/18 05:50 Dose: 4 mg
[2018-05-15] MEDS: Multivitamin W/ Minerals 1 TAB PO SCH (08:00)
[2018-05-15] MEDS: Docusate 100 MG CAP PO SCH ×2 (08:01→21:02)
[2018-05-15] MEDS: Folic Acid 1 MG TAB PO SCH (08:01)
[2018-05-15] MEDS: Famotidine 20 MG TAB PO SCH ×2 (08:01→21:01)
[2018-05-15] MEDS: predniSONE 20 MG TAB PO SCH (08:01)
[2018-05-15] MEDS: Cyanocobalamin (Vitamin B-12) 1,000 MCG TAB PO SCH (08:01)
[2018-05-15] MEDS: clonazePAM 0.5 MG TAB PO SCH ×2 (08:01→21:01)
[2018-05-15] MEDS: Fenofibrate Nanocrystallized 145 MG TAB PO SCH (08:01)
[2018-05-15] MEDS: Aspirin Chewable 81 MG TAB PO SCH (08:02)
[2018-05-15] MEDS: FLUoxetine HCl 20 MG CAP PO SCH (08:02)
--- NOTE | 2018-05-15 11:07 | PDOC.PN ---
- Subjective Encounter Start Date: 05/15/18 Encounter Start Time: 09:20 Patient seen and examined. No new complaints. No overnight events - Objective Resuscitation Status - Order Detail: 05/09/18 08:38 Resuscitation Status Routine Resuscitation Status: FULL: Full Resuscitation MAR Reviewed: Yes Vital Signs & Weight: Vital Signs (12 hours) Temp Pulse Resp BP Pulse Ox 05/15/18 07:36 97.5 F L 63 19 144/72 H 97 Weight Admit Weight 122 lb Weight 126 lb 4.8 oz I&O: 05/14/18 05/15/18 05/16/18 06:59 06:59 06:59 Intake Total 500 600 Output Total 1000 Balance 500 -400 Result Diagrams: 05/13/18 07:07 05/14/18 09:11 Phys Exam - Physical Examination Constitutional: NAD HEENT: PERRLA, moist MMs, sclera anicteric Neck: no JVD, supple Respiratory: no wheezing, no rales, no rhonchi Cardiovascular: RRR, no significant murmur, no rub Gastrointestinal: soft, non-tender, no distention, positive bowel sounds Musculoskeletal: no edema, pulses present Neurological: non-focal, normal sensation Lymphatic: no nodes Psychiatric: normal affect, A&O x 3 Skin: no rash, normal turgor Dx/Plan (1) HYACINTH (acute kidney injury) Code(s): N17.9 - ACUTE KIDNEY FAILURE, UNSPECIFIED Status: Resolved (2) Dehydration Code(s): E86.0 - DEHYDRATION Status: Resolved (3) Fall Code(s): W19.XXXA - UNSPECIFIED FALL, INITIAL ENCOUNTER Status: Acute (4) Hypernatremia Code(s): E87.0 - HYPEROSMOLALITY AND HYPERNATREMIA Status: Acute (5) Hypokalemia Code(s): E87.6 - HYPOKALEMIA Status: Acute (6) Rhabdomyolysis Code(s): M62.82 - RHABDOMYOLYSIS Status: Acute (7) Anxiety and depression Code(s): F41.9 - ANXIETY DISORDER, UNSPECIFIED; F32.9 - MAJOR DEPRESSIVE DISORDER, SINGLE EPISODE, UNSPECIFIED Status: Chronic (8) Bipolar disorder Code(s): F31.9 - BIPOLAR DISORDER, UNSPECIFIED Status: Chronic (9) Chronic anemia Code(s): D64.9 - ANEMIA, UNSPECIFIED Status: Chronic Comment: (10) Dyslipidemia Code(s): E78.5 - HYPERLIPIDEMIA, UNSPECIFIED Status: Chronic (11) HTN (hypertension) Code(s): I10 - ESSENTIAL (PRIMARY) HYPERTENSION Status: Chronic (12) Elevated troponin Code(s): R74.8 - ABNORMAL LEVELS OF OTHER SERUM ENZYMES Status: Acute Comment: due to rhabdomyolysis (13) Hypomagnesemia Code(s): E83.42 - HYPOMAGNESEMIA Status: Acute - 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 Review of Systems - Review of Systems ENT: negative: Ear Pain, Ear Discharge, Nose Pain, Nose Discharge, Nose Congestion, Mouth Pain, Mouth Swelling, Throat Pain, Throat Swelling, Other Respiratory: negative: Cough, Dry, Shortness of Breath, Hemoptysis, SOB with Excertion, Pleuritic Pain, Sputum, Wheezing Cardiovascular: negative: chest pain, palpitations, orthopnea, paroxysmal nocturnal dyspnea, edema, light headedness, other Gastrointestinal: negative: Nausea, Vomiting, Abdominal Pain, Diarrhea, Constipation, Melena, Hematochezia, Other Genitourinary: negative: Dysuria, Frequency, Incontinence, Hematuria, Retention , Other Musculoskeletal: negative: Neck Pain, Shoulder Pain, Arm Pain, Back Pain, Hand Pain, Leg Pain, Foot Pain, Other Skin: negative: Rash, Lesions, [place], Bruising, Other - Medications/Allergies Allergies/Adverse Reactions: Allergies Allergy/AdvReac Type Severity Reaction Status Date / Time No Known Allergies Allergy Verified 05/09/18 16:34 Medications: Current Medications Acetaminophen (Tylenol) 1,000 mg PO Q6H PRN PRN Reason: Mild Pain (1-3) Last Admin: 05/11/18 06:05 Dose: 1,000 mg Hydrocodone Bitart/Acetaminophen ([place] 5/325) 1 tab PO Q4H PRN PRN Reason: Moderate Pain (4-6) Last Admin: 05/11/18 18:10 Dose: 1 tab Artificial Tears (Tears Naturale) 2 drop EA EYE PRN PRN PRN Reason: Dry Eyes Aspirin (Aspirin Chewable) 81 mg PO DAILY [facility] Last Admin: 05/15/18 08:02 Dose: 81 mg Bisacodyl (Dulcolax) 10 mg [place] DAILYPRN PRN PRN Reason: Constipation Bisacodyl (Dulcolax) 10 mg PO DAILYPRN PRN PRN Reason: Constipation Calcium Carbonate (Tums) 1,000 mg PO Q4H PRN PRN Reason: Heartburn or Indigestion Clonazepam (Klonopin) 0.25 mg PO BID [facility] Last Admin: 05/15/18 08:01 Dose: 0.25 mg Cyanocobalamin (Vitamin B-12) 1,000 mcg PO DAILY [facility] Last Admin: 05/15/18 08:01 Dose: 1,000 mcg Divalproex Sodium (Depakote Er) 1,000 mg PO DAILY [facility] Last Admin: 05/15/18 08:01 Dose: 1,000 mg Docusate Sodium (Colace) 100 mg PO BID [facility] Last Admin: 05/15/18 08:01 Dose: 100 mg Famotidine (Pepcid) 20 mg PO BID [facility] Last Admin: 05/15/18 08:01 Dose: 20 mg Fenofibrate (Tricor) 145 mg PO DAILY [facility] Last Admin: 05/15/18 08:01 Dose: 145 mg Fluoxetine HCl (Prozac) 60 mg PO DAILY [facility] Last Admin: 05/15/18 08:02 Dose: 60 mg Folic Acid (Folvite) 1 mg PO DAILY [facility] Last Admin: 05/15/18 08:01 Dose: 1 mg Guaifenesin (Robitussin Sf) 200 mg PO Q4H PRN PRN Reason: Cough Hydralazine HCl (Apresoline) 10 mg SLOW IVP Q4H PRN PRN Reason: SBP > 180 and HR < 70 Iron/Minerals/Multivitamins (Theragran M) 1 tab PO DAILY [facility] Last Admin: 05/15/18 08:00 Dose: 1 tab Loperamide HCl (Imodium) 2 mg PO PRN PRN PRN Reason: Diarrhea/Loose Stools Loratadine (Claritin) 10 mg PO DAILYPRN PRN PRN Reason: Sinus Symptoms Mineral Oil/White Petrolatum (Eucerin Cream) 0 gm TOP BIDPRN PRN PRN Reason: Dry Skin Morphine Sulfate (Morphine) 2 mg SLOW IVP Q4H PRN PRN Reason: PAIN 7-10 Ondansetron HCl (Zofran Odt) 4 mg PO Q6H PRN PRN Reason: Nausea/Vomiting Ondansetron HCl (Zofran) 4 mg IVP Q6H PRN PRN Reason: Nausea/Vomiting Prednisone (Prednisone) 20 mg PO [facility] Last Admin: 05/15/18 08:01 Dose: 20 mg Senna/Docusate Sodium (Senokot S) 2 tab PO BID PRN PRN Reason: Constipation Sodium Chloride ([place] Nasal [place] 0.65%) 0 ml EA NARE QIDPRN PRN PRN Reason: Nasal Congestion Sodium Chloride (Flush - Normal Saline) 10 ml IVF PRN PRN PRN Reason: Saline Flush Throat Lozenges (Cepastat Lozenges) 1 armond PO Q2H PRN PRN Reason: Sore Throat Tizanidine HCl (Zanaflex) 4 mg PO BIDPRN PRN PRN Reason: Muscle Spasm Last Admin: 05/12/18 05:50 Dose: 4 mg
[2018-05-15] MEDS: Acetaminophen 500 MG TAB PO PRN (23:00)
[2018-05-16] MEDS: FLUoxetine HCl 20 MG CAP PO SCH (08:06)
[2018-05-16] MEDS: Fenofibrate Nanocrystallized 145 MG TAB PO SCH (08:06)
[2018-05-16] MEDS: clonazePAM 0.5 MG TAB PO SCH ×2 (08:06→20:11)
[2018-05-16] MEDS: predniSONE 20 MG TAB PO SCH (08:07)
[2018-05-16] MEDS: Multivitamin W/ Minerals 1 TAB PO SCH (08:07)
[2018-05-16] MEDS: Aspirin Chewable 81 MG TAB PO SCH (08:07)
[2018-05-16] MEDS: Folic Acid 1 MG TAB PO SCH (08:07)
[2018-05-16] MEDS: Famotidine 20 MG TAB PO SCH ×2 (08:07→20:10)
[2018-05-16] MEDS: Cyanocobalamin (Vitamin B-12) 1,000 MCG TAB PO SCH (08:07)
[2018-05-16] MEDS: Docusate 100 MG CAP PO SCH ×2 (08:07→20:10)
--- NOTE | 2018-05-16 10:00 | PDOC.PN ---
- Subjective Encounter Start Date: 05/16/18 Encounter Start Time: 08:50 Patient seen and examined. No new complaints. No overnight events - Objective Resuscitation Status - Order Detail: 05/09/18 08:38 Resuscitation Status Routine Resuscitation Status: FULL: Full Resuscitation MAR Reviewed: Yes Vital Signs & Weight: Vital Signs (12 hours) Temp Pulse Resp BP Pulse Ox 05/16/18 07:33 98.3 F 68 16 129/76 97 Weight Admit Weight 122 lb Weight 126 lb 4.8 oz I&O: 05/15/18 05/16/18 05/17/18 06:59 06:59 06:59 Intake Total 600 1200 Output Total 1000 1650 Balance -400 -450 Result Diagrams: 05/13/18 07:07 05/14/18 09:11 Phys Exam - Physical Examination Constitutional: NAD HEENT: PERRLA, moist MMs, sclera anicteric Neck: no JVD, supple Respiratory: no wheezing, no rales, no rhonchi Cardiovascular: RRR, no significant murmur, no rub Gastrointestinal: soft, non-tender, no distention, positive bowel sounds Musculoskeletal: no edema, pulses present Neurological: non-focal, normal sensation, moves all 4 limbs Lymphatic: no nodes Psychiatric: normal affect, A&O x 3 Skin: no rash, normal turgor Dx/Plan (1) HYACINTH (acute kidney injury) Code(s): N17.9 - ACUTE KIDNEY FAILURE, UNSPECIFIED Status: Resolved (2) Dehydration Code(s): E86.0 - DEHYDRATION Status: Resolved (3) Fall Code(s): W19.XXXA - UNSPECIFIED FALL, INITIAL ENCOUNTER Status: Acute (4) Hypernatremia Code(s): E87.0 - HYPEROSMOLALITY AND HYPERNATREMIA Status: Acute (5) Hypokalemia Code(s): E87.6 - HYPOKALEMIA Status: Acute (6) Rhabdomyolysis Code(s): M62.82 - RHABDOMYOLYSIS Status: Acute (7) Anxiety and depression Code(s): F41.9 - ANXIETY DISORDER, UNSPECIFIED; F32.9 - MAJOR DEPRESSIVE DISORDER, SINGLE EPISODE, UNSPECIFIED Status: Chronic (8) Bipolar disorder Code(s): F31.9 - BIPOLAR DISORDER, UNSPECIFIED Status: Chronic (9) Chronic anemia Code(s): D64.9 - ANEMIA, UNSPECIFIED Status: Chronic Comment: (10) Dyslipidemia Code(s): E78.5 - HYPERLIPIDEMIA, UNSPECIFIED Status: Chronic (11) HTN (hypertension) Code(s): I10 - ESSENTIAL (PRIMARY) HYPERTENSION Status: Chronic (12) Elevated troponin Code(s): R74.8 - ABNORMAL LEVELS OF OTHER SERUM ENZYMES Status: Acute Comment: due to rhabdomyolysis (13) Hypomagnesemia Code(s): E83.42 - HYPOMAGNESEMIA Status: Acute - Plan 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 Review of Systems - Review of Systems ENT: negative: Ear Pain, Ear Discharge, Nose Pain, Nose Discharge, Nose Congestion, Mouth Pain, Mouth Swelling, Throat Pain, Throat Swelling, Other Respiratory: negative: Cough, Dry, Shortness of Breath, Hemoptysis, SOB with Excertion, Pleuritic Pain, Sputum, Wheezing Cardiovascular: negative: chest pain, palpitations, orthopnea, paroxysmal nocturnal dyspnea, edema, light headedness, other Gastrointestinal: negative: Nausea, Vomiting, Abdominal Pain, Diarrhea, Constipation, Melena, Hematochezia, Other Genitourinary: negative: Dysuria, Frequency, Incontinence, Hematuria, Retention , Other Musculoskeletal: negative: Neck Pain, Shoulder Pain, Arm Pain, Back Pain, Hand Pain, Leg Pain, Foot Pain, Other Skin: negative: Rash, Lesions, [place], Bruising, Other - Medications/Allergies Allergies/Adverse Reactions: Allergies Allergy/AdvReac Type Severity Reaction Status Date / Time No Known Allergies Allergy Verified 05/09/18 16:34 Medications: Current Medications Acetaminophen (Tylenol) 1,000 mg PO Q6H PRN PRN Reason: Mild Pain (1-3) Last Admin: 05/15/18 23:00 Dose: 1,000 mg Hydrocodone Bitart/Acetaminophen ([place] 5/325) 1 tab PO Q4H PRN PRN Reason: Moderate Pain (4-6) Last Admin: 05/11/18 18:10 Dose: 1 tab Artificial Tears (Tears Naturale) 2 drop EA EYE PRN PRN PRN Reason: Dry Eyes Aspirin (Aspirin Chewable) 81 mg PO DAILY [facility] Last Admin: 05/16/18 08:07 Dose: 81 mg Bisacodyl (Dulcolax) 10 mg [place] DAILYPRN PRN PRN Reason: Constipation Bisacodyl (Dulcolax) 10 mg PO DAILYPRN PRN PRN Reason: Constipation Calcium Carbonate (Tums) 1,000 mg PO Q4H PRN PRN Reason: Heartburn or Indigestion Clonazepam (Klonopin) 0.25 mg PO BID [facility] Last Admin: 05/16/18 08:06 Dose: 0.25 mg Cyanocobalamin (Vitamin B-12) 1,000 mcg PO DAILY [facility] Last Admin: 05/16/18 08:07 Dose: 1,000 mcg Divalproex Sodium (Depakote Er) 1,000 mg PO DAILY [facility] Last Admin: 05/16/18 08:06 Dose: 1,000 mg Docusate Sodium (Colace) 100 mg PO BID [facility] Last Admin: 05/16/18 08:07 Dose: Not Given Famotidine (Pepcid) 20 mg PO BID [facility] Last Admin: 05/16/18 08:07 Dose: 20 mg Fenofibrate (Tricor) 145 mg PO DAILY [facility] Last Admin: 05/16/18 08:06 Dose: 145 mg Fluoxetine HCl (Prozac) 60 mg PO DAILY [facility] Last Admin: 05/16/18 08:06 Dose: 60 mg Folic Acid (Folvite) 1 mg PO DAILY [facility] Last Admin: 05/16/18 08:07 Dose: 1 mg Guaifenesin (Robitussin Sf) 200 mg PO Q4H PRN PRN Reason: Cough Hydralazine HCl (Apresoline) 10 mg SLOW IVP Q4H PRN PRN Reason: SBP > 180 and HR < 70 Iron/Minerals/Multivitamins (Theragran M) 1 tab PO DAILY [facility] Last Admin: 05/16/18 08:07 Dose: 1 tab Loperamide HCl (Imodium) 2 mg PO PRN PRN PRN Reason: Diarrhea/Loose Stools Loratadine (Claritin) 10 mg PO DAILYPRN PRN PRN Reason: Sinus Symptoms Mineral Oil/White Petrolatum (Eucerin Cream) 0 gm TOP BIDPRN PRN PRN Reason: Dry Skin Morphine Sulfate (Morphine) 2 mg SLOW IVP Q4H PRN PRN Reason: PAIN 7-10 Ondansetron HCl (Zofran Odt) 4 mg PO Q6H PRN PRN Reason: Nausea/Vomiting Ondansetron HCl (Zofran) 4 mg IVP Q6H PRN PRN Reason: Nausea/Vomiting Prednisone (Prednisone) 20 mg PO [facility] Last Admin: 05/16/18 08:07 Dose: 20 mg Senna/Docusate Sodium (Senokot S) 2 tab PO BID PRN PRN Reason: Constipation Sodium Chloride ([place] Nasal [place] 0.65%) 0 ml EA NARE QIDPRN PRN PRN Reason: Nasal Congestion Sodium Chloride (Flush - Normal Saline) 10 ml IVF PRN PRN PRN Reason: Saline Flush Throat Lozenges (Cepastat Lozenges) 1 armond PO Q2H PRN PRN Reason: Sore Throat Tizanidine HCl (Zanaflex) 4 mg PO BIDPRN PRN PRN Reason: Muscle Spasm Last Admin: 05/12/18 05:50 Dose: 4 mg
[2018-05-16] MEDS: Acetaminophen 500 MG TAB PO PRN (14:48)
[2018-05-16] MEDS ORDERED: methylPREDNISolone Sod Succ 40 MG VIAL IVP SCH (17:15)
[2018-05-17] MEDS: FLUoxetine HCl 20 MG CAP PO SCH (08:30)
[2018-05-17] MEDS: Fenofibrate Nanocrystallized 145 MG TAB PO SCH (08:30)
[2018-05-17] MEDS: Famotidine 20 MG TAB PO SCH ×2 (08:30→20:15)
[2018-05-17] MEDS: clonazePAM 0.5 MG TAB PO SCH ×2 (08:31→20:15)
[2018-05-17] MEDS: Multivitamin W/ Minerals 1 TAB PO SCH (08:31)
[2018-05-17] MEDS: Folic Acid 1 MG TAB PO SCH (08:31)
[2018-05-17] MEDS: Aspirin Chewable 81 MG TAB PO SCH (08:32)
[2018-05-17] MEDS: predniSONE 20 MG TAB PO SCH (08:32)
[2018-05-17] MEDS: Cyanocobalamin (Vitamin B-12) 1,000 MCG TAB PO SCH (08:32)
[2018-05-17] MEDS: Docusate 100 MG CAP PO SCH ×2 (08:32→20:16)
--- NOTE | 2018-05-17 10:10 | PDOC.PN ---
- Subjective Encounter Start Date: 05/17/18 Encounter Start Time: 08:50 Patient seen and examined. No new complaints. No overnight events - Objective Resuscitation Status - Order Detail: 05/09/18 08:38 Resuscitation Status Routine Resuscitation Status: FULL: Full Resuscitation MAR Reviewed: Yes Vital Signs & Weight: Vital Signs (12 hours) Temp Pulse Resp BP Pulse Ox 05/17/18 07:21 98.1 F 65 18 100/56 L 94 L Weight Admit Weight 122 lb Weight 126 lb 4.8 oz I&O: 05/16/18 05/17/18 05/18/18 06:59 06:59 06:59 Intake Total 1200 1674 Output Total 1650 Balance -450 1674 Result Diagrams: 05/13/18 07:07 05/14/18 09:11 Phys Exam - Physical Examination Constitutional: NAD HEENT: PERRLA, moist MMs, sclera anicteric Neck: no JVD, supple Respiratory: no wheezing, no rales, no rhonchi Cardiovascular: RRR, no significant murmur, no rub Gastrointestinal: soft, non-tender, no distention, positive bowel sounds Musculoskeletal: no edema, pulses present Neurological: non-focal, normal sensation Lymphatic: no nodes Psychiatric: normal affect, A&O x 3 Skin: no rash, normal turgor Dx/Plan (1) HYACINTH (acute kidney injury) Code(s): N17.9 - ACUTE KIDNEY FAILURE, UNSPECIFIED Status: Resolved (2) Dehydration Code(s): E86.0 - DEHYDRATION Status: Resolved (3) Fall Code(s): W19.XXXA - UNSPECIFIED FALL, INITIAL ENCOUNTER Status: Acute (4) Hypernatremia Code(s): E87.0 - HYPEROSMOLALITY AND HYPERNATREMIA Status: Acute (5) Hypokalemia Code(s): E87.6 - HYPOKALEMIA Status: Acute (6) Rhabdomyolysis Code(s): M62.82 - RHABDOMYOLYSIS Status: Acute (7) Anxiety and depression Code(s): F41.9 - ANXIETY DISORDER, UNSPECIFIED; F32.9 - MAJOR DEPRESSIVE DISORDER, SINGLE EPISODE, UNSPECIFIED Status: Chronic (8) Bipolar disorder Code(s): F31.9 - BIPOLAR DISORDER, UNSPECIFIED Status: Chronic (9) Chronic anemia Code(s): D64.9 - ANEMIA, UNSPECIFIED Status: Chronic Comment: (10) Dyslipidemia Code(s): E78.5 - HYPERLIPIDEMIA, UNSPECIFIED Status: Chronic (11) HTN (hypertension) Code(s): I10 - ESSENTIAL (PRIMARY) HYPERTENSION Status: Chronic (12) Elevated troponin Code(s): R74.8 - ABNORMAL LEVELS OF OTHER SERUM ENZYMES Status: Acute Comment: due to rhabdomyolysis (13) Hypomagnesemia Code(s): E83.42 - HYPOMAGNESEMIA Status: Acute - Plan cont 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 Review of Systems - Review of Systems ENT: negative: Ear Pain, Ear Discharge, Nose Pain, Nose Discharge, Nose Congestion, Mouth Pain, Mouth Swelling, Throat Pain, Throat Swelling, Other Respiratory: negative: Cough, Dry, Shortness of Breath, Hemoptysis, SOB with Excertion, Pleuritic Pain, Sputum, Wheezing Cardiovascular: negative: chest pain, palpitations, orthopnea, paroxysmal nocturnal dyspnea, edema, light headedness, other Gastrointestinal: negative: Nausea, Vomiting, Abdominal Pain, Diarrhea, Constipation, Melena, Hematochezia, Other Genitourinary: negative: Dysuria, Frequency, Incontinence, Hematuria, Retention , Other Musculoskeletal: negative: Neck Pain, Shoulder Pain, Arm Pain, Back Pain, Hand Pain, Leg Pain, Foot Pain, Other - Medications/Allergies Allergies/Adverse Reactions: Allergies Allergy/AdvReac Type Severity Reaction Status Date / Time No Known Allergies Allergy Verified 05/09/18 16:34 Medications: Current Medications Acetaminophen (Tylenol) 1,000 mg PO Q6H PRN PRN Reason: Mild Pain (1-3) Last Admin: 05/16/18 14:48 Dose: 1,000 mg Hydrocodone Bitart/Acetaminophen ([place] 5/325) 1 tab PO Q4H PRN PRN Reason: Moderate Pain (4-6) Last Admin: 05/11/18 18:10 Dose: 1 tab Artificial Tears (Tears Naturale) 2 drop EA EYE PRN PRN PRN Reason: Dry Eyes Aspirin (Aspirin Chewable) 81 mg PO DAILY [facility] Last Admin: 05/17/18 08:32 Dose: 81 mg Bisacodyl (Dulcolax) 10 mg [place] DAILYPRN PRN PRN Reason: Constipation Bisacodyl (Dulcolax) 10 mg PO DAILYPRN PRN PRN Reason: Constipation Calcium Carbonate (Tums) 1,000 mg PO Q4H PRN PRN Reason: Heartburn or Indigestion Clonazepam (Klonopin) 0.25 mg PO BID [facility] Last Admin: 05/17/18 08:31 Dose: 0.25 mg Cyanocobalamin (Vitamin B-12) 1,000 mcg PO DAILY [facility] Last Admin: 05/17/18 08:32 Dose: 1,000 mcg Divalproex Sodium (Depakote Er) 1,000 mg PO DAILY [facility] Last Admin: 05/17/18 08:31 Dose: 1,000 mg Docusate Sodium (Colace) 100 mg PO BID [facility] Last Admin: 05/17/18 08:32 Dose: Not Given Famotidine (Pepcid) 20 mg PO BID [facility] Last Admin: 05/17/18 08:30 Dose: 20 mg Fenofibrate (Tricor) 145 mg PO DAILY [facility] Last Admin: 05/17/18 08:30 Dose: 145 mg Fluoxetine HCl (Prozac) 60 mg PO DAILY [facility] Last Admin: 05/17/18 08:30 Dose: 60 mg Folic Acid (Folvite) 1 mg PO DAILY [facility] Last Admin: 05/17/18 08:31 Dose: 1 mg Guaifenesin (Robitussin Sf) 200 mg PO Q4H PRN PRN Reason: Cough Hydralazine HCl (Apresoline) 10 mg SLOW IVP Q4H PRN PRN Reason: SBP > 180 and HR < 70 Iron/Minerals/Multivitamins (Theragran M) 1 tab PO DAILY [facility] Last Admin: 05/17/18 08:31 Dose: 1 tab Loperamide HCl (Imodium) 2 mg PO PRN PRN PRN Reason: Diarrhea/Loose Stools Loratadine (Claritin) 10 mg PO DAILYPRN PRN PRN Reason: Sinus Symptoms Mineral Oil/White Petrolatum (Eucerin Cream) 0 gm TOP BIDPRN PRN PRN Reason: Dry Skin Morphine Sulfate (Morphine) 2 mg SLOW IVP Q4H PRN PRN Reason: PAIN 7-10 Ondansetron HCl (Zofran Odt) 4 mg PO Q6H PRN PRN Reason: Nausea/Vomiting Ondansetron HCl (Zofran) 4 mg IVP Q6H PRN PRN Reason: Nausea/Vomiting Prednisone (Prednisone) 20 mg PO QA-[facility] Last Admin: 05/17/18 08:32 Dose: 20 mg Senna/Docusate Sodium (Senokot S) 2 tab PO BID PRN PRN Reason: Constipation Sodium Chloride ([place] Nasal [place] 0.65%) 0 ml EA NARE QIDPRN PRN PRN Reason: Nasal Congestion Sodium Chloride (Flush - Normal Saline) 10 ml IVF PRN PRN PRN Reason: Saline Flush Throat Lozenges (Cepastat Lozenges) 1 armond PO Q2H PRN PRN Reason: Sore Throat Tizanidine HCl (Zanaflex) 4 mg PO BIDPRN PRN PRN Reason: Muscle Spasm Last Admin: 05/12/18 05:50 Dose: 4 mg
[2018-05-17] MEDS: tiZANidine HCl 4 MG TAB PO PRN (15:47)
[2018-05-17] MEDS: Acetaminophen 500 MG TAB PO PRN (15:47)
[2018-05-17] MEDS: HYDROcodone/Acetaminophen 5/325 mg Tablet PO PRN (20:18)
[2018-05-18] MEDS: Folic Acid 1 MG TAB PO SCH (08:07)
[2018-05-18] MEDS: FLUoxetine HCl 20 MG CAP PO SCH (08:07)
[2018-05-18] MEDS: predniSONE 20 MG TAB PO SCH (08:07)
[2018-05-18] MEDS: Fenofibrate Nanocrystallized 145 MG TAB PO SCH (08:08)
[2018-05-18] MEDS: Multivitamin W/ Minerals 1 TAB PO SCH (08:08)
[2018-05-18] MEDS: clonazePAM 0.5 MG TAB PO SCH ×2 (08:08→19:49)
[2018-05-18] MEDS: Aspirin Chewable 81 MG TAB PO SCH (08:09)
[2018-05-18] MEDS: Famotidine 20 MG TAB PO SCH ×2 (08:10→19:48)
[2018-05-18] MEDS: Docusate 100 MG CAP PO SCH ×2 (08:10→19:15)
[2018-05-18] MEDS: Cyanocobalamin (Vitamin B-12) 1,000 MCG TAB PO SCH (08:10)
--- NOTE | 2018-05-18 08:43 | PDOC.PN ---
- Subjective Encounter Start Date: 05/18/18 Encounter Start Time: 07:20 Patient seen and examined. No new complaints. No overnight events - Objective Resuscitation Status - Order Detail: 05/09/18 08:38 Resuscitation Status Routine Resuscitation Status: FULL: Full Resuscitation MAR Reviewed: Yes Vital Signs & Weight: Vital Signs (12 hours) Temp Pulse Resp BP Pulse Ox 05/18/18 08:02 97.7 F 77 18 133/74 95 Weight Admit Weight 122 lb Weight 126 lb 4.8 oz I&O: 05/17/18 05/18/18 05/19/18 06:59 06:59 06:59 Intake Total 1674 3340 Balance 1674 3340 Result Diagrams: 05/13/18 07:07 05/14/18 09:11 Phys Exam - Physical Examination Constitutional: NAD HEENT: PERRLA, moist MMs, sclera anicteric Neck: no JVD, supple Respiratory: no wheezing, no rales, no rhonchi, clear to auscultation bilateral Cardiovascular: RRR, no significant murmur, no rub Gastrointestinal: soft, non-tender, no distention, positive bowel sounds Musculoskeletal: no edema, pulses present Neurological: non-focal, normal sensation Lymphatic: no nodes Psychiatric: normal affect, A&O x 3 Skin: no rash, normal turgor Dx/Plan (1) HYACINTH (acute kidney injury) Code(s): N17.9 - ACUTE KIDNEY FAILURE, UNSPECIFIED Status: Resolved (2) Dehydration Code(s): E86.0 - DEHYDRATION Status: Resolved (3) Fall Code(s): W19.XXXA - UNSPECIFIED FALL, INITIAL ENCOUNTER Status: Acute (4) Hypernatremia Code(s): E87.0 - HYPEROSMOLALITY AND HYPERNATREMIA Status: Acute (5) Hypokalemia Code(s): E87.6 - HYPOKALEMIA Status: Acute (6) Rhabdomyolysis Code(s): M62.82 - RHABDOMYOLYSIS Status: Acute (7) Anxiety and depression Code(s): F41.9 - ANXIETY DISORDER, UNSPECIFIED; F32.9 - MAJOR DEPRESSIVE DISORDER, SINGLE EPISODE, UNSPECIFIED Status: Chronic (8) Bipolar disorder Code(s): F31.9 - BIPOLAR DISORDER, UNSPECIFIED Status: Chronic (9) Chronic anemia Code(s): D64.9 - ANEMIA, UNSPECIFIED Status: Chronic Comment: (10) Dyslipidemia Code(s): E78.5 - HYPERLIPIDEMIA, UNSPECIFIED Status: Chronic (11) HTN (hypertension) Code(s): I10 - ESSENTIAL (PRIMARY) HYPERTENSION Status: Chronic (12) Elevated troponin Code(s): R74.8 - ABNORMAL LEVELS OF OTHER SERUM ENZYMES Status: Acute Comment: due to rhabdomyolysis (13) Hypomagnesemia Code(s): E83.42 - HYPOMAGNESEMIA Status: Acute - Plan cont 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 Review of Systems - Review of Systems ENT: negative: Ear Pain, Ear Discharge, Nose Pain, Nose Discharge, Nose Congestion, Mouth Pain, Mouth Swelling, Throat Pain, Throat Swelling, Other Respiratory: negative: Cough, Dry, Shortness of Breath, Hemoptysis, SOB with Excertion, Pleuritic Pain, Sputum, Wheezing Cardiovascular: negative: chest pain, palpitations, orthopnea, paroxysmal nocturnal dyspnea, edema, light headedness, other Gastrointestinal: negative: Nausea, Vomiting, Abdominal Pain, Diarrhea, Constipation, Melena, Hematochezia, Other Genitourinary: negative: Dysuria, Frequency, Incontinence, Hematuria, Retention , Other Musculoskeletal: negative: Neck Pain, Shoulder Pain, Arm Pain, Back Pain, Hand Pain, Leg Pain, Foot Pain, Other - Medications/Allergies Allergies/Adverse Reactions: Allergies Allergy/AdvReac Type Severity Reaction Status Date / Time No Known Allergies Allergy Verified 05/09/18 16:34 Medications: Current Medications Acetaminophen (Tylenol) 1,000 mg PO Q6H PRN PRN Reason: Mild Pain (1-3) Last Admin: 05/17/18 15:47 Dose: 1,000 mg Hydrocodone Bitart/Acetaminophen ([place] 5/325) 1 tab PO Q4H PRN PRN Reason: Moderate Pain (4-6) Last Admin: 05/17/18 20:18 Dose: 1 tab Artificial Tears (Tears Naturale) 2 drop EA EYE PRN PRN PRN Reason: Dry Eyes Aspirin (Aspirin Chewable) 81 mg PO DAILY [facility] Last Admin: 05/18/18 08:09 Dose: 81 mg Bisacodyl (Dulcolax) 10 mg [place] DAILYPRN PRN PRN Reason: Constipation Bisacodyl (Dulcolax) 10 mg PO DAILYPRN PRN PRN Reason: Constipation Calcium Carbonate (Tums) 1,000 mg PO Q4H PRN PRN Reason: Heartburn or Indigestion Clonazepam (Klonopin) 0.25 mg PO BID [facility] Last Admin: 05/18/18 08:08 Dose: 0.25 mg Cyanocobalamin (Vitamin B-12) 1,000 mcg PO DAILY [facility] Last Admin: 05/18/18 08:10 Dose: 1,000 mcg Divalproex Sodium (Depakote Er) 1,000 mg PO DAILY [facility] Last Admin: 05/18/18 08:09 Dose: 1,000 mg Docusate Sodium (Colace) 100 mg PO BID [facility] Last Admin: 05/18/18 08:10 Dose: Not Given Famotidine (Pepcid) 20 mg PO BID [facility] Last Admin: 05/18/18 08:10 Dose: 20 mg Fenofibrate (Tricor) 145 mg PO DAILY [facility] Last Admin: 05/18/18 08:08 Dose: 145 mg Fluoxetine HCl (Prozac) 60 mg PO DAILY [facility] Last Admin: 05/18/18 08:07 Dose: 60 mg Folic Acid (Folvite) 1 mg PO DAILY [facility] Last Admin: 05/18/18 08:07 Dose: 1 mg Guaifenesin (Robitussin Sf) 200 mg PO Q4H PRN PRN Reason: Cough Hydralazine HCl (Apresoline) 10 mg SLOW IVP Q4H PRN PRN Reason: SBP > 180 and HR < 70 Iron/Minerals/Multivitamins (Theragran M) 1 tab PO DAILY [facility] Last Admin: 05/18/18 08:08 Dose: 1 tab Loperamide HCl (Imodium) 2 mg PO PRN PRN PRN Reason: Diarrhea/Loose Stools Loratadine (Claritin) 10 mg PO DAILYPRN PRN PRN Reason: Sinus Symptoms Mineral Oil/White Petrolatum (Eucerin Cream) 0 gm TOP BIDPRN PRN PRN Reason: Dry Skin Morphine Sulfate (Morphine) 2 mg SLOW IVP Q4H PRN PRN Reason: PAIN 7-10 Ondansetron HCl (Zofran Odt) 4 mg PO Q6H PRN PRN Reason: Nausea/Vomiting Ondansetron HCl (Zofran) 4 mg IVP Q6H PRN PRN Reason: Nausea/Vomiting Prednisone (Prednisone) 20 mg PO QAM-[facility] Last Admin: 05/18/18 08:07 Dose: 20 mg Senna/Docusate Sodium (Senokot S) 2 tab PO BID PRN PRN Reason: Constipation Sodium Chloride ([place] Nasal [place] 0.65%) 0 ml EA NARE QIDPRN PRN PRN Reason: Nasal Congestion Sodium Chloride (Flush - Normal Saline) 10 ml IVF PRN PRN PRN Reason: Saline Flush Throat Lozenges (Cepastat Lozenges) 1 armond PO Q2H PRN PRN Reason: Sore Throat Tizanidine HCl (Zanaflex) 4 mg PO BIDPRN PRN PRN Reason: Muscle Spasm Last Admin: 05/17/18 15:47 Dose: 4 mg
[2018-05-18] MEDS: HYDROcodone/Acetaminophen 5/325 mg Tablet PO PRN (22:32)
[2018-05-19] MEDS: Famotidine 20 MG TAB PO SCH ×2 (08:38→21:10)
[2018-05-19] MEDS: predniSONE 20 MG TAB PO SCH (08:39)
[2018-05-19] MEDS: Fenofibrate Nanocrystallized 145 MG TAB PO SCH (08:39)
[2018-05-19] MEDS: FLUoxetine HCl 20 MG CAP PO SCH (08:39)
[2018-05-19] MEDS: clonazePAM 0.5 MG TAB PO SCH ×2 (08:40→21:10)
[2018-05-19] MEDS: Folic Acid 1 MG TAB PO SCH (08:41)
[2018-05-19] MEDS: Aspirin Chewable 81 MG TAB PO SCH (08:41)
[2018-05-19] MEDS: Multivitamin W/ Minerals 1 TAB PO SCH (08:41)
[2018-05-19] MEDS: Docusate 100 MG CAP PO SCH ×2 (08:41→21:11)
[2018-05-19] MEDS: Cyanocobalamin (Vitamin B-12) 1,000 MCG TAB PO SCH (08:41)
--- NOTE | 2018-05-19 12:38 | PDOC.PN ---
- Subjective Encounter Start Date: 05/19/18 Encounter Start Time: 09:00 Patient seen and examined. No new complaints. No overnight events - Objective Resuscitation Status - Order Detail: 05/09/18 08:38 Resuscitation Status Routine Resuscitation Status: FULL: Full Resuscitation MAR Reviewed: Yes Vital Signs & Weight: Vital Signs (12 hours) Temp Pulse Resp BP Pulse Ox 05/19/18 08:00 98.4 F 82 16 115/65 96 Weight Admit Weight 122 lb Weight 126 lb 4.8 oz I&O: 05/18/18 05/19/18 05/20/18 06:59 06:59 06:59 Intake Total 3340 2100 Balance 3340 2100 Result Diagrams: 05/13/18 07:07 05/14/18 09:11 Phys Exam - Physical Examination Constitutional: NAD HEENT: PERRLA, moist MMs, sclera anicteric Neck: no JVD, supple Respiratory: no wheezing, no rales, no rhonchi Cardiovascular: RRR, no significant murmur, no rub Gastrointestinal: soft, non-tender, no distention, positive bowel sounds Musculoskeletal: no edema, pulses present Neurological: non-focal, normal sensation, moves all 4 limbs Lymphatic: no nodes Psychiatric: normal affect, A&O x 3 Skin: no rash, normal turgor Dx/Plan (1) HYACINTH (acute kidney injury) Code(s): N17.9 - ACUTE KIDNEY FAILURE, UNSPECIFIED Status: Resolved (2) Dehydration Code(s): E86.0 - DEHYDRATION Status: Resolved (3) Fall Code(s): W19.XXXA - UNSPECIFIED FALL, INITIAL ENCOUNTER Status: Acute (4) Hypernatremia Code(s): E87.0 - HYPEROSMOLALITY AND HYPERNATREMIA Status: Acute (5) Hypokalemia Code(s): E87.6 - HYPOKALEMIA Status: Acute (6) Rhabdomyolysis Code(s): M62.82 - RHABDOMYOLYSIS Status: Acute (7) Anxiety and depression Code(s): F41.9 - ANXIETY DISORDER, UNSPECIFIED; F32.9 - MAJOR DEPRESSIVE DISORDER, SINGLE EPISODE, UNSPECIFIED Status: Chronic (8) Bipolar disorder Code(s): F31.9 - BIPOLAR DISORDER, UNSPECIFIED Status: Chronic (9) Chronic anemia Code(s): D64.9 - ANEMIA, UNSPECIFIED Status: Chronic Comment: (10) Dyslipidemia Code(s): E78.5 - HYPERLIPIDEMIA, UNSPECIFIED Status: Chronic (11) HTN (hypertension) Code(s): I10 - ESSENTIAL (PRIMARY) HYPERTENSION Status: Chronic (12) Elevated troponin Code(s): R74.8 - ABNORMAL LEVELS OF OTHER SERUM ENZYMES Status: Acute Comment: due to rhabdomyolysis (13) Hypomagnesemia Code(s): E83.42 - HYPOMAGNESEMIA Status: Acute - Plan cont current plan of care, PT/OT, delinquency prevention social worker * medication reviewed as below * symptomatic treatment * stable medically * await placement. Review of Systems - Review of Systems ENT: negative: Ear Pain, Ear Discharge, Nose Pain, Nose Discharge, Nose Congestion, Mouth Pain, Mouth Swelling, Throat Pain, Throat Swelling, Other Respiratory: negative: Cough, Dry, Shortness of Breath, Hemoptysis, SOB with Excertion, Pleuritic Pain, Sputum, Wheezing Cardiovascular: negative: chest pain, palpitations, orthopnea, paroxysmal nocturnal dyspnea, edema, light headedness, other Gastrointestinal: negative: Nausea, Vomiting, Abdominal Pain, Diarrhea, Constipation, Melena, Hematochezia, Other Genitourinary: negative: Dysuria, Frequency, Incontinence, Hematuria, Retention , Other Musculoskeletal: negative: Neck Pain, Shoulder Pain, Arm Pain, Back Pain, Hand Pain, Leg Pain, Foot Pain, Other Skin: negative: Rash, Lesions, Cheko, Bruising, Other - Medications/Allergies Allergies/Adverse Reactions: Allergies Allergy/AdvReac Type Severity Reaction Status Date / Time No Known Allergies Allergy Verified 05/09/18 16:34 Medications: Current Medications Acetaminophen (Tylenol) 1,000 mg PO Q6H PRN PRN Reason: Mild Pain (1-3) Last Admin: 05/17/18 15:47 Dose: 1,000 mg Hydrocodone Bitart/Acetaminophen ([place] 5/325) 1 tab PO Q4H PRN PRN Reason: Moderate Pain (4-6) Last Admin: 05/18/18 22:32 Dose: 1 tab Artificial Tears (Tears Naturale) 2 drop EA EYE PRN PRN PRN Reason: Dry Eyes Aspirin (Aspirin Chewable) 81 mg PO DAILY [facility] Last Admin: 05/19/18 08:41 Dose: 81 mg Bisacodyl (Dulcolax) 10 mg [place] DAILYPRN PRN PRN Reason: Constipation Bisacodyl (Dulcolax) 10 mg PO DAILYPRN PRN PRN Reason: Constipation Calcium Carbonate (Tums) 1,000 mg PO Q4H PRN PRN Reason: Heartburn or Indigestion Clonazepam (Klonopin) 0.25 mg PO BID [facility] Last Admin: 05/19/18 08:40 Dose: 0.25 mg Cyanocobalamin (Vitamin B-12) 1,000 mcg PO DAILY [facility] Last Admin: 05/19/18 08:41 Dose: 1,000 mcg Divalproex Sodium (Depakote Er) 1,000 mg PO DAILY [facility] [place] Last Admin: 05/19/18 08:38 Dose: 1,000 mg Docusate Sodium (Colace) 100 mg PO BID [facility] Last Admin: 05/19/18 08:41 Dose: Not Given Famotidine (Pepcid) 20 mg PO BID [facility] Last Admin: 05/19/18 08:38 Dose: 20 mg Fenofibrate (Tricor) 145 mg PO DAILY [facility] Last Admin: 05/19/18 08:39 Dose: 145 mg Fluoxetine HCl (Prozac) 60 mg PO DAILY [facility] Last Admin: 05/19/18 08:39 Dose: 60 mg Folic Acid (Folvite) 1 mg PO DAILY [facility] Last Admin: 05/19/18 08:41 Dose: 1 mg Guaifenesin (Robitussin Sf) 200 mg PO Q4H PRN PRN Reason: Cough Hydralazine HCl (Apresoline) 10 mg SLOW IVP Q4H PRN PRN Reason: SBP > 180 and HR < 70 Iron/Minerals/Multivitamins (Theragran M) 1 tab PO DAILY [facility] [place] Last Admin: 05/19/18 08:41 Dose: 1 tab Loperamide HCl (Imodium) 2 mg PO PRN PRN PRN Reason: Diarrhea/Loose Stools Loratadine (Claritin) 10 mg PO DAILYPRN PRN PRN Reason: Sinus Symptoms Mineral Oil/White Petrolatum (Eucerin Cream) 0 gm TOP BIDPRN PRN PRN Reason: Dry Skin Morphine Sulfate (Morphine) 2 mg SLOW IVP Q4H PRN PRN Reason: PAIN 7-10 Ondansetron HCl (Zofran Odt) 4 mg PO Q6H PRN PRN Reason: Nausea/Vomiting Ondansetron HCl (Zofran) 4 mg IVP Q6H PRN PRN Reason: Nausea/Vomiting Prednisone (Prednisone) 20 mg PO [facility] Last Admin: 05/19/18 08:39 Dose: 20 mg Senna/Docusate Sodium (Senokot S) 2 tab PO BID PRN PRN Reason: Constipation Sodium Chloride ([place] Nasal [place] 0.65%) 0 ml EA NARE QIDPRN PRN PRN Reason: Nasal Congestion Sodium Chloride (Flush - Normal Saline) 10 ml IVF PRN PRN PRN Reason: Saline Flush Throat Lozenges (Cepastat Lozenges) 1 armond PO Q2H PRN PRN Reason: Sore Throat Tizanidine HCl (Zanaflex) 4 mg PO BIDPRN PRN PRN Reason: Muscle Spasm Last Admin: 05/17/18 15:47 Dose: 4 mg
[2018-05-19] MEDS: HYDROcodone/Acetaminophen 5/325 mg Tablet PO PRN (22:22)
[2018-05-20] MEDS: FLUoxetine HCl 20 MG CAP PO SCH (08:45)
[2018-05-20] MEDS: Docusate 100 MG CAP PO SCH ×2 (08:46→20:17)
[2018-05-20] MEDS: Cyanocobalamin (Vitamin B-12) 1,000 MCG TAB PO SCH (08:46)
[2018-05-20] MEDS: Multivitamin W/ Minerals 1 TAB PO SCH (08:46)
[2018-05-20] MEDS: clonazePAM 0.5 MG TAB PO SCH (08:46)
[2018-05-20] MEDS: Famotidine 20 MG TAB PO SCH ×2 (08:46→20:17)
[2018-05-20] MEDS: predniSONE 20 MG TAB PO SCH (08:46)
[2018-05-20] MEDS: Fenofibrate Nanocrystallized 145 MG TAB PO SCH (08:47)
[2018-05-20] MEDS: Folic Acid 1 MG TAB PO SCH (08:47)
[2018-05-20] MEDS: Aspirin Chewable 81 MG TAB PO SCH (08:47)
--- NOTE | 2018-05-20 10:59 | PDOC.PN ---
- Subjective Encounter Start Date: 05/20/18 Encounter Start Time: 09:20 Patient seen and examined. No new complaints. No overnight events - Objective Resuscitation Status - Order Detail: 05/09/18 08:38 Resuscitation Status Routine Resuscitation Status: FULL: Full Resuscitation MAR Reviewed: Yes Vital Signs & Weight: Vital Signs (12 hours) Temp Pulse Resp BP Pulse Ox 05/20/18 07:19 98.2 F 57 L 16 132/78 96 Weight Admit Weight 122 lb Weight 126 lb 4.8 oz I&O: 05/19/18 05/20/18 05/21/18 06:59 06:59 06:59 Intake Total 2100 1000 Balance 2100 1000 Result Diagrams: 05/13/18 07:07 05/14/18 09:11 Phys Exam - Physical Examination Constitutional: NAD HEENT: PERRLA, moist MMs, sclera anicteric Neck: no JVD, supple Respiratory: no wheezing, no rales, no rhonchi Cardiovascular: RRR, no significant murmur, no rub Gastrointestinal: soft, non-tender, no distention, positive bowel sounds Musculoskeletal: no edema, pulses present Neurological: non-focal, normal sensation, moves all 4 limbs Lymphatic: no nodes Psychiatric: normal affect, A&O x 3 Skin: no rash, normal turgor Dx/Plan (1) HYACINTH (acute kidney injury) Code(s): N17.9 - ACUTE KIDNEY FAILURE, UNSPECIFIED Status: Resolved (2) Dehydration Code(s): E86.0 - DEHYDRATION Status: Resolved (3) Fall Code(s): W19.XXXA - UNSPECIFIED FALL, INITIAL ENCOUNTER Status: Acute (4) Hypernatremia Code(s): E87.0 - HYPEROSMOLALITY AND HYPERNATREMIA Status: Acute (5) Hypokalemia Code(s): E87.6 - HYPOKALEMIA Status: Acute (6) Rhabdomyolysis Code(s): M62.82 - RHABDOMYOLYSIS Status: Acute (7) Anxiety and depression Code(s): F41.9 - ANXIETY DISORDER, UNSPECIFIED; F32.9 - MAJOR DEPRESSIVE DISORDER, SINGLE EPISODE, UNSPECIFIED Status: Chronic (8) Bipolar disorder Code(s): F31.9 - BIPOLAR DISORDER, UNSPECIFIED Status: Chronic (9) Chronic anemia Code(s): D64.9 - ANEMIA, UNSPECIFIED Status: Chronic Comment: (10) Dyslipidemia Code(s): E78.5 - HYPERLIPIDEMIA, UNSPECIFIED Status: Chronic (11) HTN (hypertension) Code(s): I10 - ESSENTIAL (PRIMARY) HYPERTENSION Status: Chronic (12) Elevated troponin Code(s): R74.8 - ABNORMAL LEVELS OF OTHER SERUM ENZYMES Status: Acute Comment: due to rhabdomyolysis (13) Hypomagnesemia Code(s): E83.42 - HYPOMAGNESEMIA Status: Acute - Plan cont current plan of care * medication reviewed as below * symptomatic treatment * await placement * stable medically. Review of Systems - Review of Systems ENT: negative: Ear Pain, Ear Discharge, Nose Pain, Nose Discharge, Nose Congestion, Mouth Pain, Mouth Swelling, Throat Pain, Throat Swelling, Other Respiratory: negative: Cough, Dry, Shortness of Breath, Hemoptysis, SOB with Excertion, Pleuritic Pain, Sputum, Wheezing Cardiovascular: negative: chest pain, palpitations, orthopnea, paroxysmal nocturnal dyspnea, edema, light headedness, other Gastrointestinal: negative: Nausea, Vomiting, Abdominal Pain, Diarrhea, Constipation, Melena, Hematochezia, Other Genitourinary: negative: Dysuria, Frequency, Incontinence, Hematuria, Retention , Other Musculoskeletal: negative: Neck Pain, Shoulder Pain, Arm Pain, Back Pain, Hand Pain, Leg Pain, Foot Pain, Other Skin: negative: Rash, Lesions, Cheko, Bruising, Other - Medications/Allergies Allergies/Adverse Reactions: Allergies Allergy/AdvReac Type Severity Reaction Status Date / Time No Known Allergies Allergy Verified 05/09/18 16:34 Medications: Current Medications Acetaminophen (Tylenol) 1,000 mg PO Q6H PRN PRN Reason: Mild Pain (1-3) Last Admin: 05/17/18 15:47 Dose: 1,000 mg Hydrocodone Bitart/Acetaminophen ([place] 5/325) 1 tab PO Q4H PRN PRN Reason: Moderate Pain (4-6) Last Admin: 05/19/18 22:22 Dose: 1 tab Artificial Tears (Tears Naturale) 2 drop EA EYE PRN PRN PRN Reason: Dry Eyes Aspirin (Aspirin Chewable) 81 mg PO DAILY [facility] Last Admin: 05/20/18 08:47 Dose: 81 mg Bisacodyl (Dulcolax) 10 mg [place] DAILYPRN PRN PRN Reason: Constipation Bisacodyl (Dulcolax) 10 mg PO DAILYPRN PRN PRN Reason: Constipation Calcium Carbonate (Tums) 1,000 mg PO Q4H PRN PRN Reason: Heartburn or Indigestion Cyanocobalamin (Vitamin B-12) 1,000 mcg PO DAILY [facility] Last Admin: 05/20/18 08:46 Dose: 1,000 mcg Divalproex Sodium (Depakote Er) 1,000 mg PO DAILY [facility] Last Admin: 05/20/18 08:46 Dose: 1,000 mg Docusate Sodium (Colace) 100 mg PO BID [facility] Last Admin: 05/20/18 08:46 Dose: 100 mg Famotidine (Pepcid) 20 mg PO BID [facility] Last Admin: 05/20/18 08:46 Dose: 20 mg Fenofibrate (Tricor) 145 mg PO DAILY [facility] Last Admin: 05/20/18 08:47 Dose: 145 mg Fluoxetine HCl (Prozac) 60 mg PO DAILY [facility] Last Admin: 05/20/18 08:45 Dose: 60 mg Folic Acid (Folvite) 1 mg PO DAILY [facility] Last Admin: 05/20/18 08:47 Dose: 1 mg Guaifenesin (Robitussin Sf) 200 mg PO Q4H PRN PRN Reason: Cough Hydralazine HCl (Apresoline) 10 mg SLOW IVP Q4H PRN PRN Reason: SBP > 180 and HR < 70 Iron/Minerals/Multivitamins (Theragran M) 1 tab PO DAILY [facility] Last Admin: 05/20/18 08:46 Dose: 1 tab Loperamide HCl (Imodium) 2 mg PO PRN PRN PRN Reason: Diarrhea/Loose Stools Loratadine (Claritin) 10 mg PO DAILYPRN PRN PRN Reason: Sinus Symptoms Mineral Oil/White Petrolatum (Eucerin Cream) 0 gm TOP BIDPRN PRN PRN Reason: Dry Skin Morphine Sulfate (Morphine) 2 mg SLOW IVP Q4H PRN PRN Reason: PAIN 7-10 Ondansetron HCl (Zofran Odt) 4 mg PO Q6H PRN PRN Reason: Nausea/Vomiting Ondansetron HCl (Zofran) 4 mg IVP Q6H PRN PRN Reason: Nausea/Vomiting Prednisone (Prednisone) 20 mg PO QAM-[facility] Last Admin: 05/20/18 08:46 Dose: 20 mg Senna/Docusate Sodium (Senokot S) 2 tab PO BID PRN PRN Reason: Constipation Sodium Chloride ([place] Nasal [place] 0.65%) 0 ml EA NARE QIDPRN PRN PRN Reason: Nasal Congestion Sodium Chloride (Flush - Normal Saline) 10 ml IVF PRN PRN PRN Reason: Saline Flush Throat Lozenges (Cepastat Lozenges) 1 armond PO Q2H PRN PRN Reason: Sore Throat Tizanidine HCl (Zanaflex) 4 mg PO BIDPRN PRN PRN Reason: Muscle Spasm Last Admin: 05/17/18 15:47 Dose: 4 mg
--- NOTE | 2018-05-20 11:37 | DIS ---
DATE OF ADMISSION: 05/09/2018 DATE OF DISCHARGE: 05/20/2018 PRIMARY CARE PHYSICIAN: Dr. Shahzad Christianson. DISCHARGE DISPOSITION: Home. PRIMARY DISCHARGE DIAGNOSES: 1. Dehydration, corrected. 2. Acute kidney injury, corrected. 3. Rhabdomyolysis, corrected. 4. Abnormal electrolytes with hypokalemia, hypernatremia, and hypomagnesemia, corrected. 5. Elevated troponin due to rhabdomyolysis. 6. Mechanical fall at home. SECONDARY DISCHARGE DIAGNOSES: 1. Anxiety. 2. Depression. 3. Bipolar disorder. 4. Chronic normocytic anemia. 5. Hypertension. 6. Dyslipidemia. PRIMARY PROCEDURE/OPERATION: None. RADIOLOGICAL INVESTIGATION: CT brain, CT cervical spine, chest x-ray, hand x-ray. SIGNIFICANT LABORATORY DATA: Stool for infection workup showed a stool antigen positive for C diff, but toxin negative. Rest of the stool workup is negative. Hemoglobin 12.9. Creatinine 0.91. Urinalysis, normal. Urine culture, negative. DISCHARGE MEDICATIONS: 1. Aspirin 81 mg p.o. daily. 2. Calcium citrate 950 mg b.i.d. 3. Clonazepam 0.5 mg b.i.d. 4. Colace 100 mg p.o. b.i.d. 5. Fenofibric acid 135 mg p.o. daily. 6. Prozac 60 mg p.o. daily. 7. Multivitamin 1 tablet p.o. daily. 8. Vitamin B12 1000 mcg p.o. daily. 9. Depakote ER 1000 mg p.o. daily. 10. Folic acid 1 mg p.o. daily. 11. Prednisone 20 mg p.o. daily for 7 days. CONTRAINDICATION: None. CODE STATUS: Full code. INPATIENT CONSULTED: Dr. Forest Velasquez was consulted for hand pain. TEST RESULTS PENDING ON DISCHARGE: None. ALLERGIES: NO KNOWN DRUG ALLERGIES. DISCHARGE PLAN: Posthospital, the patient will follow up with primary care physician. HOSPITAL COURSE: A 62-year-old female, who was admitted by Dr. White. Please see his H and P for further detail. The patient had mechanical fall and subsequently, she was found with rhabdomyolysis. She had acute kidney injury and dehydration and abnormal electrolytes on admission. The patient was admitted to telemetry floor because of elevated troponin. Her elevated troponin was related with rhabdomyolysis. The patient was not having any chest pain. The patient was treated with IV fluid. Her abnormal electrolytes were corrected. This patient was having hand pain and swelling and that is why we started on steroids that made significant improvement. We changed to p.o. prednisone for 7 more days. The patient was medically stabilized and then she was moved to medical floor. This patient was doing very well with PT/OT while in the hospital. This patient was interested in going to [facility] home and that is why with help of case management coordinator, we are trying to arrange snf home placement. Once we have [facility] home placement arranged, then the patient will be discharged to [facility]. If [facility] is not able to be arranged, then home with home health is another option. The patient is seen and examined at bedside today. Please see my progress note from today for further detail. Job ID: [id number]
[2018-05-20] MEDS: HYDROcodone/Acetaminophen 5/325 mg Tablet PO PRN (20:21)
[2018-05-21 07:29] VITALS: BP 147/84; TEMP 98.1
[2018-05-21] MEDS: FLUoxetine HCl 20 MG CAP PO SCH (08:59)
[2018-05-21] MEDS: Multivitamin W/ Minerals 1 TAB PO SCH (08:59)
[2018-05-21] MEDS: Docusate 100 MG CAP PO SCH (08:59)
[2018-05-21] MEDS: Fenofibrate Nanocrystallized 145 MG TAB PO SCH (08:59)
[2018-05-21] MEDS: Folic Acid 1 MG TAB PO SCH (09:00)
[2018-05-21] MEDS: predniSONE 20 MG TAB PO SCH (09:00)
[2018-05-21] MEDS: Aspirin Chewable 81 MG TAB PO SCH (09:00)
[2018-05-21] MEDS: Cyanocobalamin (Vitamin B-12) 1,000 MCG TAB PO SCH (09:00)
--- NOTE | 2018-05-21 10:06 | PDOC.PN ---
- Subjective Encounter Start Date: 05/21/18 Encounter Start Time: 08:50 Patient seen and examined. No new complaints. No overnight events - Objective Resuscitation Status - Order Detail: 05/09/18 08:38 Resuscitation Status Routine Resuscitation Status: FULL: Full Resuscitation MAR Reviewed: Yes Vital Signs & Weight: Vital Signs (12 hours) Temp Pulse Resp BP Pulse Ox 05/21/18 07:25 98.1 F 64 18 147/84 H 94 L 05/21/18 04:00 98.0 F 62 16 122/70 97 05/20/18 23:56 98.1 F 61 16 126/76 96 Weight Admit Weight 122 lb Weight 126 lb 4.8 oz I&O: 05/20/18 05/21/18 05/22/18 06:59 06:59 06:59 Intake Total 1000 300 Balance 1000 300 Result Diagrams: 05/13/18 07:07 05/14/18 09:11 Phys Exam - Physical Examination Constitutional: NAD HEENT: PERRLA, moist MMs, sclera anicteric Neck: no JVD, supple Respiratory: no wheezing, no rales, no rhonchi Cardiovascular: RRR, no significant murmur, no rub Gastrointestinal: soft, non-tender, no distention, positive bowel sounds Musculoskeletal: no edema, pulses present Neurological: non-focal, normal sensation, moves all 4 limbs Lymphatic: no nodes Psychiatric: normal affect, A&O x 3 Skin: no rash, normal turgor Dx/Plan (1) HYACINTH (acute kidney injury) Code(s): N17.9 - ACUTE KIDNEY FAILURE, UNSPECIFIED Status: Resolved (2) Dehydration Code(s): E86.0 - DEHYDRATION Status: Resolved (3) Fall Code(s): W19.XXXA - UNSPECIFIED FALL, INITIAL ENCOUNTER Status: Acute (4) Hypernatremia Code(s): E87.0 - HYPEROSMOLALITY AND HYPERNATREMIA Status: Acute (5) Hypokalemia Code(s): E87.6 - HYPOKALEMIA Status: Acute (6) Rhabdomyolysis Code(s): M62.82 - RHABDOMYOLYSIS Status: Acute (7) Anxiety and depression Code(s): F41.9 - ANXIETY DISORDER, UNSPECIFIED; F32.9 - MAJOR DEPRESSIVE DISORDER, SINGLE EPISODE, UNSPECIFIED Status: Chronic (8) Bipolar disorder Code(s): F31.9 - BIPOLAR DISORDER, UNSPECIFIED Status: Chronic (9) Chronic anemia Code(s): D64.9 - ANEMIA, UNSPECIFIED Status: Chronic Comment: (10) Dyslipidemia Code(s): E78.5 - HYPERLIPIDEMIA, UNSPECIFIED Status: Chronic (11) HTN (hypertension) Code(s): I10 - ESSENTIAL (PRIMARY) HYPERTENSION Status: Chronic (12) Elevated troponin Code(s): R74.8 - ABNORMAL LEVELS OF OTHER SERUM ENZYMES Status: Acute Comment: due to rhabdomyolysis (13) Hypomagnesemia Code(s): E83.42 - HYPOMAGNESEMIA Status: Acute - Plan cont current plan of care, PT/OT, marriage and family social worker * medication reviewed as below * symptomatic treatment * stable and improving * continue PT * await placement. Review of Systems - Review of Systems ENT: negative: Ear Pain, Ear Discharge, Nose Pain, Nose Discharge, Nose Congestion, Mouth Pain, Mouth Swelling, Throat Pain, Throat Swelling, Other Respiratory: negative: Cough, Dry, Shortness of Breath, Hemoptysis, SOB with Excertion, Pleuritic Pain, Sputum, Wheezing Cardiovascular: negative: chest pain, palpitations, orthopnea, paroxysmal nocturnal dyspnea, edema, light headedness, other Gastrointestinal: negative: Nausea, Vomiting, Abdominal Pain, Diarrhea, Constipation, Melena, Hematochezia, Other Genitourinary: negative: Dysuria, Frequency, Incontinence, Hematuria, Retention , Other Musculoskeletal: negative: Neck Pain, Shoulder Pain, Arm Pain, Back Pain, Hand Pain, Leg Pain, Foot Pain, Other - Medications/Allergies Allergies/Adverse Reactions: Allergies Allergy/AdvReac Type Severity Reaction Status Date / Time No Known Allergies Allergy Verified 05/09/18 16:34 Medications: Current Medications Acetaminophen (Tylenol) 1,000 mg PO Q6H PRN PRN Reason: Mild Pain (1-3) Last Admin: 05/17/18 15:47 Dose: 1,000 mg Hydrocodone Bitart/Acetaminophen ([place] 5/325) 1 tab PO Q4H PRN PRN Reason: Moderate Pain (4-6) Last Admin: 05/20/18 20:21 Dose: 1 tab Artificial Tears (Tears Naturale) 2 drop EA EYE PRN PRN PRN Reason: Dry Eyes Aspirin (Aspirin Chewable) 81 mg PO DAILY [facility] Last Admin: 05/21/18 09:00 Dose: 81 mg Bisacodyl (Dulcolax) 10 mg [place] DAILYPRN PRN PRN Reason: Constipation Bisacodyl (Dulcolax) 10 mg PO DAILYPRN PRN PRN Reason: Constipation Calcium Carbonate (Tums) 1,000 mg PO Q4H PRN PRN Reason: Heartburn or Indigestion Cyanocobalamin (Vitamin B-12) 1,000 mcg PO DAILY [facility] Last Admin: 05/21/18 09:00 Dose: 1,000 mcg Divalproex Sodium (Depakote Er) 1,000 mg PO DAILY [facility] Last Admin: 05/21/18 08:59 Dose: 1,000 mg Docusate Sodium (Colace) 100 mg PO BID [facility] Last Admin: 05/21/18 08:59 Dose: 100 mg Famotidine (Pepcid) 20 mg PO BID [facility] Last Admin: 05/20/18 20:17 Dose: 20 mg Fenofibrate (Tricor) 145 mg PO DAILY [facility] Last Admin: 05/21/18 08:59 Dose: 145 mg Fluoxetine HCl (Prozac) 60 mg PO DAILY [facility] Last Admin: 05/21/18 08:59 Dose: 60 mg Folic Acid (Folvite) 1 mg PO DAILY [facility] Last Admin: 05/21/18 09:00 Dose: 1 mg Guaifenesin (Robitussin Sf) 200 mg PO Q4H PRN PRN Reason: Cough Hydralazine HCl (Apresoline) 10 mg SLOW IVP Q4H PRN PRN Reason: SBP > 180 and HR < 70 Iron/Minerals/Multivitamins (Theragran M) 1 tab PO DAILY [facility] Last Admin: 05/21/18 08:59 Dose: 1 tab Loperamide HCl (Imodium) 2 mg PO PRN PRN PRN Reason: Diarrhea/Loose Stools Loratadine (Claritin) 10 mg PO DAILYPRN PRN PRN Reason: Sinus Symptoms Last Admin: 05/20/18 17:34 Dose: 10 mg Mineral Oil/White Petrolatum (Eucerin Cream) 0 gm TOP BIDPRN PRN PRN Reason: Dry Skin Morphine Sulfate (Morphine) 2 mg SLOW IVP Q4H PRN PRN Reason: PAIN 7-10 Ondansetron HCl (Zofran Odt) 4 mg PO Q6H PRN PRN Reason: Nausea/Vomiting Ondansetron HCl (Zofran) 4 mg IVP Q6H PRN PRN Reason: Nausea/Vomiting Prednisone (Prednisone) 20 mg PO QA[facility] Last Admin: 05/21/18 09:00 Dose: 20 mg Senna/Docusate Sodium (Senokot S) 2 tab PO BID PRN PRN Reason: Constipation Sodium Chloride ([place] Nasal [place] 0.65%) 0 ml EA NARE QIDPRN PRN PRN Reason: Nasal Congestion Sodium Chloride (Flush - Normal Saline) 10 ml IVF PRN PRN PRN Reason: Saline Flush Throat Lozenges (Cepastat Lozenges) 1 armond PO Q2H PRN PRN Reason: Sore Throat Tizanidine HCl (Zanaflex) 4 mg PO BIDPRN PRN PRN Reason: Muscle Spasm Last Admin: 05/17/18 15:47 Dose: 4 mg
[2018-05-21] MEDS: Famotidine 20 MG TAB PO SCH (11:21)
--- NOTE | 2018-05-22 07:27 | DIS ---
DATE OF ADMISSION: 05/09/2018 DATE OF DISCHARGE: 05/21/2018 ADDENDUM: This patient was discharged yesterday. Please see my discharge summary dictated yesterday for further detail. Today, we have approval for [facility] home placement and there is no change in my discharge summary. The patient is seen and examined at bedside today. Please see my progress note from today for further detail. Job ID: [id number]
== END 2018-05-21 17:30 | DRG 683 ==
LOC: ERS 01:42 → ERHOLD 06:05 → 2NO 15:17 → T4-A 05-13 16:29
PROVIDERS: ADMIT Internal Medicine; ATTEND Internal Medicine
DX: N17.9 Acute kidney failure, unspecified (principal); E87.0 Hyperosmolality and hypernatremia; M62.82 Rhabdomyolysis; E86.0 Dehydration; E87.6 Hypokalemia; E83.42 Hypomagnesemia; I10 Essential (primary) hypertension; E78.5 Hyperlipidemia, unspecified; F31.9 Bipolar disorder, unspecified; D64.9 Anemia, unspecified; R74.8 Abnormal levels of other serum enzymes; M81.0 Age-related osteoporosis without current pathological fracture; R22.33 Localized swelling, mass and lump, upper limb, bilateral; F41.8 Other specified anxiety disorders; Z79.82 Long term (current) use of aspirin; W06.XXXA Fall from bed, initial encounter; Y92.003 Bedroom of unspecified non-institutional (private) residence as the place of occurrence of the external cause
CPT/HCPCS: 36415; 70450; 71045; 72125; 80048; 80053; 81003; 82274; 82550; 82553; 83630; 83735; 84100; 84484; 84550; 85007; 85025; 85027; 86140; 87086; 87324; 87449; 87493; 87899; 93005; 96365; 96372; J0696; J1200; J1650; J1885; J2270; J2920; J3475; J3480; J7050

== ENCOUNTER 2018-06-17 02:17 | Emergency (ER) | payer MEDICARE, BC | END 2018-06-17 05:02 | disposition home or self-care (01) | LOC: ERS 02:17 | DX: F41.9 Anxiety disorder, unspecified (principal); Z91.14 Patient's other noncompliance with medication regimen; E03.9 Hypothyroidism, unspecified; E78.5 Hyperlipidemia, unspecified; F31.9 Bipolar disorder, unspecified; Z79.899 Other long term (current) drug therapy | CPT/HCPCS: 93005 ==

== ENCOUNTER 2018-07-28 22:44 | Emergency (ER) | payer MEDICARE, BC ==
--- NOTE | 2018-07-28 23:51 | CT ---
EXAM: CT brain without contrast HISTORY: Fall with head trauma COMPARISON: 05/09/2018 TECHNIQUE: Multiple contiguous axial images were obtained and a CT of the brain without contrast. FINDINGS: The brain is normal in morphology and attenuation without focal lesions or confluent areas of infarction. There is no evidence of hydrocephalus, intracranial hemorrhage, or extra-axial fluid collection. Soft tissue swelling is seen in the left parietal scalp. The underlying calvarium is unremarkable.. T he visualized paranasal sinuses and mastoid air cells are well aerated. IMPRESSION: No evidence of acute intracranial abnormality
--- NOTE | 2018-07-28 23:58 | RAD ---
EXAM: Single view of the chest HISTORY: Chest pain After fall COMPARISON: 05/09/2018 FINDINGS: Single view of the chest shows a normal sized cardiomediastinal silhouette. There is no yosef dence of consolidation, mass, or pleural effusion. The bones are unremarkable. IMPRESSION: No evidence of acute cardiopulmonary disease
--- NOTE | 2018-07-28 23:59 | RAD ---
EXAM: 2 views of the right hip and a single view of the pelvis HISTORY: Right hip pain after fall COMPARISON: None FINDINGS: 2 views of the right hip and a single view of the pelvis shows no evidence of acute fractur e or dislocation. No degenerative changes are seen in either hip. No soft tissue swelling is present. IMPRESSION: No evidence of acute osseous abnormality.
[2018-07-29 00:15] LABS: ALT (SGPT) 28 U/L (8-55); AST (SGOT) 48 U/L (5-34); Albumin 3.4 g/dL (3.4-4.8); Alkaline Phosphatase 31 U/L (40-150); Anion Gap 15 mmol/L (10-20); BUN (Urea Nitrogen) 31 mg/dL (9.8-20.1); Bilirubin, Total 1.2 mg/dL (0.2-1.2); CK (CPK) 67 U/L (29-168); Calc. Creatinine Clearance 0 mL/min (70-130); Calcium 8.1 mg/dL (7.8-10.44); Carbon Dioxide 29 mmol/L (23-31); Chloride 92 mmol/L (98-107); Estimated GFR-MDRD 44; Globulin 1.9 g/dL (2.4-3.5); Glucose 105 mg/dL (80-115); Potassium 3.8 mmol/L (3.5-5.1); Protein, Total 5.3 g/dL (6.0-8.3); Sodium 132 mmol/L (136-145)
[2018-07-29 00:24] LABS: #Lymphocytes 1.2 thou/uL (1.20-3.40); #Monocytes 0.4 thou/uL (0.11-0.59); #Neutrophils 2.4 thou/uL (1.40-6.50); %Basophils 0.7 % (0.0-1.0); %Eosinophils 0.6 % (0.0-10.0); %Lymphocytes 29.8 % (21.0-51.0); %Monocytes 10.7 % (0.0-10.0); %Neutrophils 58.2 % (42.0-75.0); Hemoglobin 10.6 g/dL (12.0-16.0); Mean Corpuscular HGB CONC 34.7 g/dL (32.0-36.0); Mean Corpuscular Hemoglobin 33.8 pg (27.0-31.0); Mean Corpuscular Volume 97.3 fL (78.0-98.0); Mean Platelet Volume 7.4 fL (7.4-10.4); Platelet Count 59 thou/uL (130-400); Platelet Morphology Comment Appears Decreased; RBC Distribution Width 14.2 % (11.5-14.5); Red Blood Cell (RBC) Count 3.13 mill/uL (4.20-5.40); White Blood Cell (WBC) Count 4.1 thou/uL (4.8-10.8)
== END 2018-07-29 00:38 | disposition home or self-care (01) ==
LOC: ERS 22:44
DX: S09.90XA Unspecified injury of head, initial encounter (principal); S70.02XA Contusion of left hip, initial encounter; S70.01XA Contusion of right hip, initial encounter; E03.9 Hypothyroidism, unspecified; E78.5 Hyperlipidemia, unspecified; F41.9 Anxiety disorder, unspecified; F31.9 Bipolar disorder, unspecified; Z79.899 Other long term (current) drug therapy; Z79.82 Long term (current) use of aspirin
CPT/HCPCS: 36415; 70450; 71045; 80053; 82550; 84484; 85025; 93005

== ENCOUNTER 2018-07-30 17:03 | Inpatient (IN) | payer MEDICARE, BC ==
[2018-07-30 17:35] LABS: Hemoglobin 10.8 g/dL (12.0-16.0); Mean Corpuscular HGB CONC 34.6 g/dL (32.0-36.0); Mean Corpuscular Hemoglobin 33.2 pg (27.0-31.0); Mean Corpuscular Volume 96.2 fL (78.0-98.0); Mean Platelet Volume 6.8 fL (7.4-10.4); Platelet Count 75 thou/uL (130-400); RBC Distribution Width 14.5 % (11.5-14.5); Red Blood Cell (RBC) Count 3.26 mill/uL (4.20-5.40)
[2018-07-30 17:39] LABS: PTT 27.4 SEC (22.9-36.1); Prothrombin Time 14.9 SEC (12.0-14.7)
[2018-07-30 17:41] LABS: INR-International Normal Ratio 1.2
[2018-07-30 17:48] LABS: ALT (SGPT) 24 U/L (8-55); AST (SGOT) 37 U/L (5-34); Albumin 3.4 g/dL (3.4-4.8); Alkaline Phosphatase 39 U/L (40-150); Anion Gap 14 mmol/L (10-20); BUN (Urea Nitrogen) 34 mg/dL (9.8-20.1); Bilirubin, Total 1.5 mg/dL (0.2-1.2); CK (CPK) 337 U/L (29-168); Calc. Creatinine Clearance 0 mL/min (70-130); Calcium 8.5 mg/dL (7.8-10.44); Carbon Dioxide 27 mmol/L (23-31); Chloride 95 mmol/L (98-107); Estimated GFR-MDRD 37; Globulin 2.1 g/dL (2.4-3.5); Glucose 123 mg/dL (80-115); Potassium 3.2 mmol/L (3.5-5.1); Protein, Total 5.5 g/dL (6.0-8.3); Sodium 133 mmol/L (136-145)
--- NOTE | 2018-07-30 17:51 | CT ---
CT HEAD WITHOUT IV CONTRAST COMPARISON: 07/28/2018 HISTORY: Fall 2 days ago. Patient now has left-sided weakness. Last seen normal one day ago. TECHNIQUE: Axial CT imaging at 5 mm intervals from vertex through skull base without contrast FINDINGS: There is a mixed density left subdural collection which extends along the inner table of the left michael varium from anterior to posterior and extends from the level of the left middle cranial fossa to the vertex compatible with a left subdural hematoma measuring 1.4 cm in greatest transverse dimension . There was questionable trace left subdural collection on prior exam. There is sulcal effacement involving the left cerebral hemisphere. Small amount of hemorrhage is seen along the falx superiorly and anteriorly with small amount of increased density along the left tentorium suggesting hemorrhage in this region as well. There is mass effect on the left lateral ventricle with shift of the midline structures to the right measuring approximately 8 mm. No acute cortical infarction is seen. Visualized paranasal sinuses are clear. Osseous structures appear intact. No calvarial fracture is identified. The left parietal scalp hemato ma is again present and unchanged in size. IMPRESSION: 1. Left subdural hematoma with associated mass effect on the left cerebral hemisphere including mass effect on the left lateral ventricle and shift of the midline structures to the right measuring 8 mm. 2. Small amount of hemorrhage along the falx superiorly with small amount of hemorrhage posteriorly a long the falx and the region of the tentorium. 3. Left parietal scalp hematoma. 4. Above findings discussed with Dr. Mcmahon in the emergency department on 07/30/2018 at 1741 hours.
[2018-07-30 18:00] LABS: Band 31 % (5-11); Lymphocytes 18 % (21-51); MDiff Complete? YES; Metamyelocyte 1 % (0-0); Monocytes 5 % (0-10); Neutrophil 44 % (42-75); Nucleated RBC 2 % (0); Platelet Morphology Comment Appears Decreased; Polychromasia SLIGHT = 2-3 cells (100X) (0-2/hpf); Reactive Lymphocytes 1 % (0-10); Stomatocytes SLIGHT = 2-5 cells (100X) (0-1/hpf)
--- NOTE | 2018-07-30 18:41 | RAD ---
CHEST ONE VIEW: 07/30/18 HISTORY: Chest injury. COMPARISON: 07/28/18. FINDINGS: Heart size is within normal limits. Minimal linear streaky changes in the right infrahilar region an d right lung base slightly more prominent than on prior study. No pneumothorax or other significant a cute process. IMPRESSION: Minimal increased linear interstitial streaky changes in the right infrahilar region slightly more pr ominent than on the prior study. No pneumothorax, pleural effusion or other acute process. Atheroscle rosis of the aorta. POS: OFF
[2018-07-30] MEDS ORDERED: Ondansetron PF 4 MG/2 ML Vial IVP PRN (18:48)
[2018-07-30] MEDS ORDERED: Dextrose 50% Abboject 50 ML SYRINGE SLOW IVP PRN (18:48)
[2018-07-30] MEDS ORDERED: Promethazine HCl 25 MG/ML VIAL IM PRN (18:48)
[2018-07-30] MEDS ORDERED: HumaLOG 300 UNITS/3 ML VIAL SC PRN (18:48)
[2018-07-30] MEDS ORDERED: Dextrose 5% in Water 1,000 ML IV PRN (18:48)
[2018-07-30] MEDS ORDERED: Morphine 4 MG/ML VIAL SLOW IVP PRN (18:48)
[2018-07-30] MEDS ORDERED: hydrALAZINE 20 MG/ML VIAL SLOW IVP PRN (18:48)
[2018-07-30 19:35] LABS: Alcohol Less than 10 mg/dL (Less than 10); Magnesium 1.7 mg/dL (1.6-2.6); Phosphorus 5.1 mg/dL (2.3-4.7)
[2018-07-30] MEDS ORDERED: Potassium Chloride 40 MEQ in Sodium Chloride 0.9% 250 ML 250 ML IVPB SCH (20:00)
[2018-07-30] MEDS ORDERED: Magnesium 2 GM/50 ML 2 GM in Premix Bag 1 BAG IVPB SCH (20:00)
--- NOTE | 2018-07-30 20:31 | CT ---
CT HEAD WITHOUT IV CONTRAST COMPARISON: 07/30/2018 and 17 and $20. HISTORY: Altered mental status which is now worse. TECHNIQUE: Axial CT imaging at 5 mm intervals from vertex through skull base without contrast FINDINGS: Again noted is the left subdural hemorrhage demonstrating mixed density which is overall stable in tr ansverse dimensions and again extends from the left middle cranial fossa superiorly to the vertex. Again noted is suggestion of minimal hemorrhage along the left tentorium as well as adjacent to the f mihir posteriorly. Hemorrhage along the falx anteriorly is also again present. There is stable mass effect involving the left cerebral hemisphere as well as stable shift of midline structures to the right measuring approximately 8 to 9 mm. Mass effect on the left lateral ventricle as well as sulcal effacement is present. No new areas of hemorrhage are seen. There is no evidence of an acute infarction. Left parietal scalp hematoma is again present. CT head is overall stable compared to recent study. IMPRESSION: 1. Stable CT of the head with left subdural hemorrhage as well as hemorrhage along the falx and minim al hemorrhage along the left tentorium. 2. Stable mass effect left cerebral hemisphere including stable shift of the midline structures to th e right. 3. No acute cortical infarction is seen.
--- NOTE | 2018-07-30 20:37 | CT ---
EXAM: CT cervical spine PROVIDED CLINICAL HISTORY: Altered mental status. Patient fell 2 days ago. TECHNIQUE: Contiguous axial CT images are obtained through the cervical spine from the skull base to the T1-2 le jarek. Sagittal and coronal reformatted images are provided. COMPARISON: 05/09/2018 FINDINGS: Again noted is trace retrolisthesis of C3 on C4 with trace anterolisthesis of C5 on C6 related to deg enerative changes. Multilevel degenerative changes are again seen in the cervical spine. Findings are greatest at the C5-6 and C6-7 levels with narrowing of the intervertebral disc spaces and osteoph yte formation. The vertebral body heights are within normal limits. No fracture is visualized. No prevertebral soft tissue swelling apparent. Visualized lung apices appear clear. Visualized thyroid gland demonstrates nonspecific heterogeneity. IMPRESSION: 1. No acute fracture visualized. 2. Stable degenerative changes in the cervical spine including stable trace retrolisthesis of C3 on C 4 and trace anterolisthesis of C5 on C6.
[2018-07-30 20:51] LABS: Lactic Acid 1.8 mmol/L (0.5-2.2)
[2018-07-30] MEDS ORDERED: Famotidine/PF 20 mg/2ml Vial SLOW IVP SCH (21:00)
--- NOTE | 2018-07-30 21:03 | CT ---
CT THORAX WITH IV CONTRAST CT ABDOMEN AND PELVIS WITH IV CONTRAST CT THORACIC AND LUMBAR SPINE 07/30/18 HISTORY: The patient fell two days ago. Altered mental status. Reportedly vomited blood. COMPARISON: 09/07/17. FINDINGS: There is patchy parenchymal density seen in the right lower lobe which could be related to either dev eloping pneumonia or aspiration pneumonitis. No pneumothorax or pleural effusion is identified. Vascular calcifications are seen in the thoracic and abdominal aorta, abut there are no findings to s uggest an aortic injury. Mediastinal structures have a normal CT appearance. Post cholecystectomy changes are present. Stable Subcentimeter too small to characterize hypodense lesion is present in the right kidney. Kidne ys otherwise have a normal CT appearance for phase of imaging. The liver, spleen, pancreas, bilateral adrenal glands, urinary bladder, and uterus demonstrate a norm al CT appearance for patient's age. No free fluid or free intraperitoneal gas is seen in the abdomen or pelvis. No fracture is seen. CT THORACIC AND LUMBAR SPINE: There is a fracture involving the right transverse process of the L2 vertebral body which is not disp laced. No adjacent soft tissue swelling is present, but this does present an interval change compared to the prior study in 2018 although the exact age is indeterminate. No additional fracture or sublux ation is seen involving the thoracic or lumbar spine. Mild degenerative changes are seen in the lumba r spine. IMPRESSION: 1. Indeterminate age nondisplaced fracture involving the right transverse process L2 vertebral b kita. This does present an interval change compared to the study in 2018. No additional fracture or diaz bluxation is seen involving the thoracic and lumbar spine. 2. Parenchymal densities in the right lower lobe posteriorly which could be related to either pn eumonia or aspiration pneumonitis. 3. Post cholecystectomy changes. 4. Subcentimeter too small to characterize hypodense lesion right kidney. POS: OFF
--- NOTE | 2018-07-30 22:19 | HP ---
TRAUMA SURGEON: Dr. Pearce. CONSULTING PHYSICIAN: Dr. Urbano of Neurosurgery. HISTORY OF PRESENT ILLNESS: The patient is a 63-year-old female, who presents to the emergency department via EMS with altered mental status. The patient was here in the emergency department 2 days ago after a mechanical fall from standing where she received workup including CT scans of the head, which were negative for injury and subsequently she was discharged home. The patient's neighbor checked on her today and found the patient with altered mental status. On arrival, EMS did note that she had a change in her mentation. On evaluation in the emergency department, it was noted that she had a GCS of 13, -1 for verbal, and -1 for eyes, but following commands appropriately. She received a CT scan of the head, which demonstrated a left subdural hematoma with [address] Urbano with Neurosurgery was consulted, subsequently did an evaluation of the patient, determined the GCS was 12, -1 for eyes, and -2 for verbal. Upon my evaluation, the patient had a GCS of 12 , seen with Neurosurgery and it was noted that she had multiple bruises on her upper torso anteriorly and posteriorly. It is unknown if the patient takes any anticoagulation. She is unable to tell us her past medical history. Previous chart review does not indicate any anticoagulation use. REVIEW OF SYSTEMS: Review of systems was not able to be completed due to the patient's mental status. PAST MEDICAL HISTORY: Positive for pancytopenia, multiple falls, bipolar disorder, chronic fatigue, anxiety, depression, hyperlipidemia, rhabdomyolysis, osteoporosis, and hypothyroidism. This was recovered from chart review. PAST SURGICAL HISTORY: Also received from previous chart review is positive for thyroid surgery, bilateral thyroidectomy, oophorectomy, cystectomy, bilateral tubal ligation. MEDICATIONS: Previously noted medications include; 1. Aspirin. 2. Calcium citrate. 3. Klonopin. 4. Depakote. 5. Zetia. 6. Fenofibric acid. 7. Multivitamins. 8. Folic acid. It is unclear if the patient is currently on these medications after her most recent hospital admission where she was discharged on May 21 of this year. It is possible that further medications were changed. At the time of that discharge, the patient was discharged with; 1. Vitamin B12. 2. Depakote. 3. Folic acid. 4. Prednisone. 5. Colace. 6. Calcium citrate. 7. Multivitamin. 8. Fluoxetine. 9. Fenofibric acid in. She was also taking clonazepam and 81 mg of aspirin daily. SOCIAL HISTORY: Unknown as the patient is unable to participate in her examination history and physical. ALLERGIES: NO KNOWN DRUG ALLERGIES. PHYSICAL EXAMINATION: PRIMARY SURVEY: Airway intact. Adequate breath sounds bilaterally. 2+ pulses palpable in the bilateral femorals and DPs bilaterally. GCS is 12, -1 for eyes, and -2 for verbal. Pupils equal, round, reactive to light bilaterally. The patient able to follow commands in all extremities. No lacerations. Multiple bruising to bilateral shoulders, anterior chest wall as well as posterior chest wall. SECONDARY SURVEY: HEAD: Normocephalic. Posterior scalp cephalhematoma with no laceration. No palpable skull deformities. EYES: Pupils 4 to 3, equal, round, reactive bilaterally. ENT: No hemotympanum. No epistaxis. No septal hematoma. Midface stable to manipulation. No blood in the oropharynx. Dentition is intact. No anterior neck injury/crepitus/tenderness. C-SPINE: No step-offs or deformities, nontender. C-collar not in place. CHEST: Nontender. No crepitus. Multiple anterior chest wall and shoulder ecchymoses, but with no abrasions. Equal chest movement. ABDOMEN: Soft, nontender, nondistended. PELVIS: Stable to palpation. RECTAL: Deferred. GENITOURINARY: Brief in place with urine. EXTREMITIES: No gross deformities. No abrasions or ecchymosis. 2+ pulses in the bilateral radials, femorals, and DPs. BACK/SPINE: No deformities or tenderness to palpation of the thoracic or lumbar spine. Multiple bruises on back. No signs of abrasions or lacerations. NEUROLOGIC: 5/5 strength in bilateral continuing education specialist, plantar flexion, and dorsiflexion. Gross normal sensation x4 extremities. GCS is 12. Follows all commands in all extremities. LABORATORY FINDINGS: White count 10.0, hemoglobin 10.8, hematocrit 31.3, platelets 75. INR 1.2. Sodium 133, potassium 3.2, chloride 95, carbon dioxide 27, BUN 39 , creatinine 1.44, glucose 123, lactic acid 1.8, phosphorus 5.1, magnesium 1.7, AST 37, ALT 24, total bilirubin 1.5. CK 337, troponin 0.012. Plasma alcohol less than 10. DIAGNOSTIC FINDINGS: Chest x-ray demonstrates minimal increased linear interstitial streaky changes in the right infrahilar region, slightly more prominent than on the prior study. No pneumothorax, pleural effusion or other acute processes. Atherosclerosis of the aorta. CT of the brain demonstrates stable CT of the head with left subdural hematoma as well as hemorrhage along the falx and minimal hemorrhage along the left tentorium. Stable mass effect, left cerebral hemisphere including stable shift of the midline structures to the right. No acute cortical infarction is seen. CT of C-spine demonstrates no acute fracture visualized. CT of the chest, abdomen, and pelvis demonstrates indeterminate age nondisplaced fracture involving the right transverse process of L2 vertebral body. This does present an interval change compared to the study in 2018. No additional fractures or subluxation is seen involving the thoracic and lumbar spine. Parenchymal densities present in the right lower lobe posteriorly, which could be related to pneumonia or aspiration pneumonitis. Post-cholecystectomy changes. Subcentimeter, too small to characterize hypodensity lesion of the right kidney. ASSESSMENT: 1. Status post trauma/fall. 2. Left subdural hematoma with midline shift, about 8 cm in left-sided cerebral hemisphere. Left parotid scalp hematoma. 3. Acute kidney injury. 4. Aspiration pneumonitis. 5. Hyponatremia, hypokalemia, hypophosphatemia, elevated CK. 6. UTI, uncomplicated. PLAN: The patient will be admitted to the CCU with q.1 hour neuro checks. Goal systolic blood pressure less than 170. Elevate the head of the bed at 30 degrees. We will consider repeat CT scan if further decline in GCS and will inform Neurosurgery if a further decline does occur. As of now, Dr. Urbano is planning to take the patient to the OR in the morning for libertad holes. We will replace potassium and magnesium today. Repeat chest x-ray in the morning. Also, we will complete a urine drug screen. Cipro for three days for UTI. The patient will likely need some kind of rehab or mcfp postoperatively. We will determine further as hospital course develops. The patient is n.p.o. She will receive normal saline via IV overnight. April, the PA for Dr. Urbano, did discuss this patient with Dr. Joseph of Pulmonology as he will be managing her care while she is in the ICU. The patient was also discussed with Dr. Pearce by this evening. Job ID: [id number] MTDD
[2018-07-30 22:37] LABS: Bilirubin Small (Negative); Blood, Urine Small (Negative); Clarity CLOUDY (Clear); Glucose, Urine (Dipstick) Negative (Negative); Leukocyte Large (Negative); Nitrite Negative (Negative); Protein, Urine (Dipstick) Negative (Neg-Trace); Specific Gravity, Urine 1.017 (1.002-1.036)
[2018-07-30 22:39] LABS: Bacteria/HPF 4+ HPF (None Seen); Squamous Epithelial 0-3 HPF (0-3)
[2018-07-30 22:42] LABS: Pathc Cast-AUWi Flag 4.21 (0-2.49)
[2018-07-30 22:48] LABS: Amphetamine Not Detected (NotDetected); Barbiturates Screen Not Detected (NotDetected); Benzodiazepine Screen Not Detected (NotDetected); Cocaine Metabolite Screen Not Detected (NotDetected); Medtox Reader # READER 1; Methadone Not Detected (NotDetected); Methamphetamine Not Detected (NotDetected); Opiate Screen Not Detected (NotDetected); Phencyclidine (PCP) Not Detected (NotDetected); THC/Cannabinoid Screen Not Detected (NotDetected); Tricyclic Screen Not Detected (NotDetected)
[2018-07-30 22:49] LABS: Medtox Control Line Valid? VALID (VALID); Oxycodone Screen Not Detected (NotDetected)
[2018-07-30 22:52] LABS: Hyaline Casts/LPF 4-6 HYALINE CAST LPF (0-3 Hyaline); Urine Culture Reflex Yes Yes
[2018-07-31] MEDS: Sodium Chloride 0.9% 1,000 ML IV SCH ×3 (01:02→19:53)
[2018-07-31] MEDS: Acetaminophen 1,000 MG in Premix Bag 1 BAG IVPB SCH ×4 (01:03→17:16)
--- NOTE | 2018-07-31 01:51 | CON ---
DATE OF CONSULTATION: HISTORY OF PRESENT ILLNESS: The patient is a 63-year-old female, who presents to the ER per EMS for altered mental status. Two days ago, the patient had a mechanical fall and was seen in the ER at that time and had a noncontrast CT of the head, which was negative for any acute intracranial injury. She was discharged home and was reportedly doing okay but found significantly confused by her neighbor later today. She was brought by EMS to the emergency department for repeat evaluation, where a noncontrast CT head was done on arrival and was notable for a large left-sided subdural hematoma, which appears to be a mixed density and moderate amount of midline shift. The patient was also noted to be significantly hypertensive per EMS at 215/113, but this appears to have improved upon arrival to the ER. The patient had a GCS of 12 upon arrival to the ER. I presented to the emergency department shortly after her arrival to evaluate the patient. She continues to have a GCS of 12. She will open her eyes to voice. She will tell me her name, but is significantly confused. She will localize pain. Labs are notable for thrombocytopenia, platelets are 75, and this appears to be chronic on prior labs. Her INR is 1.2. PAST MEDICAL HISTORY: Depression, anxiety, bipolar disorder. PAST SURGICAL HISTORY: Parathyroidectomy, cholecystectomy, oophorectomy, tubal ligation. SOCIAL HISTORY: The patient does not smoke, drink, or use any drugs. ALLERGIES: THE PATIENT HAS NO KNOWN DRUG ALLERGIES. CURRENT MEDICATION LIST: 1. Aspirin 81 mg tablet. 2. Valproic acid 500 mg tablet. 3. 40 mg tablet. 4. Pepcid 20 mg tablet. REVIEW OF SYSTEMS: Unobtainable secondary to patient's current condition. PHYSICAL EXAMINATION: GENERAL: GCS 12. The patient opens her eyes to voice. She will tell me her name, but is significantly confused. She is localizing to pain. HEENT: Head, no obvious external signs of trauma. Eyes, PERRLA. Extraocular movements are intact. ENT, oral mucosa is pink, but it is a bit dry. She does have normal voice. NECK: She has free active range of motion of neck. No nuchal rigidity is appreciated. RESPIRATORY: Symmetric chest expansion. No evidence of dyspnea. She appears to be protecting her airway appropriately at this time. CARDIOVASCULAR: Regular rate and rhythm. MUSCULOSKELETAL: She has some ecchymosis over bilateral arms and shoulders. No obvious deformities. Symmetric pulses. NEUROLOGIC: GCS 12. She is moving all four spontaneously, but appears to be slightly more weak on the right side. ASSESSMENT AND PLAN: This is a 63-year-old female, status post mechanical fall two days ago with a negative CT at that time, who presents today per EMS for increased confusion and has a new CT head, which is notable for large left-sided mixed density subdural hematoma with midline shift. She is also noted to have a slightly low platelet count at 75. She takes an 81 mg aspirin daily and we will discontinue that. I have discussed her case with Trauma Service, and they will admit to CCU, where we will monitor the patient closely. Check q.1 neuro checks overnight and repeat her a.m. CT head. Systolic blood pressure will also be monitored closely with a goal of less than 140. Head of the bed will be elevated to 30 degrees. I have discussed this plan with Dr. Urbano, who is also in agreement. Job ID: [id number]
[2018-07-31] MEDS: hydrALAZINE 20 MG/ML VIAL SLOW IVP PRN ×2 (05:36→15:11)
[2018-07-31 05:42] LABS: #Lymphocytes 1.9 thou/uL (1.20-3.40); #Monocytes 0.8 thou/uL (0.11-0.59); #Neutrophils 5.8 thou/uL (1.40-6.50); %Basophils 0.1 % (0.0-1.0); %Eosinophils 0.1 % (0.0-10.0); %Lymphocytes 22.3 % (21.0-51.0); %Monocytes 9.3 % (0.0-10.0); %Neutrophils 68.2 % (42.0-75.0); Hemoglobin 10.2 g/dL (12.0-16.0); Mean Corpuscular HGB CONC 33.3 g/dL (32.0-36.0); Mean Corpuscular Hemoglobin 33.3 pg (27.0-31.0); Mean Platelet Volume 6.4 fL (7.4-10.4); Platelet Count 67 thou/uL (130-400); RBC Distribution Width 14.9 % (11.5-14.5); Red Blood Cell (RBC) Count 3.06 mill/uL (4.20-5.40); White Blood Cell (WBC) Count 8.4 thou/uL (4.8-10.8)
[2018-07-31 06:04] LABS: Anion Gap 15 mmol/L (10-20); BUN (Urea Nitrogen) 34 mg/dL (9.8-20.1); CK (CPK) 227 U/L (29-168); Calc. Creatinine Clearance 48 mL/min (70-130); Calcium 8.1 mg/dL (7.8-10.44); Carbon Dioxide 25 mmol/L (23-31); Chloride 102 mmol/L (98-107); Estimated GFR-MDRD 42; Glucose 94 mg/dL (80-115); Magnesium 2.3 mg/dL (1.6-2.6); Phosphorus 4.1 mg/dL (2.3-4.7); Potassium 3.9 mmol/L (3.5-5.1); Sodium 138 mmol/L (136-145)
[2018-07-31] MEDS ORDERED: CEFAZOLIN 2 GM in Premix Bag 1 BAG IVPB SCH ×2 (07:45→16:30)
--- NOTE | 2018-07-31 07:45 | HP ---
HISTORY OF PRESENT ILLNESS: Crystal Hernández, 63-year-old female, presented to the emergency room yesterday, who fell to her left side and presented complaining of right hip pain. She denies loss of consciousness and states she fell a week ago and has right elbow pain with bruising to her right elbow. The patient was evaluated and sent home, but returns today with altered mental status, confused. She has been evaluated and CAT scan of her brain reveals left subdural hematoma with mass effect with shift to midline. Hemorrhage along the falx, left parietal scalp hematoma. The patient was discussed with Neurosurgery, Dr. Urbano and this patient would be admitted to ICU and observed. Eyes are open to voice. When ask her name, she is able to recite her name and she does follow commands. GCS of 13. She has been admitted to ICU for observation. Past history is obtained from recent admissions as she is not able to give a reliable history. She was admitted on May 09, 2018, by hospitalist apparently related to a fall out of her bed at home. PAST MEDICAL HISTORY: History of falls, pancytopenia, bipolar illness, anxiety, depression, hypertension, dyslipidemia, osteoporosis, and chronic fatigue. PAST SURGICAL HISTORY: Includes thyroid surgery, bilateral thyroidectomy, oophorectomy, cholecystectomy, and tubal ligation. MEDICATIONS: 1. Aspirin. 2. Calcium. 3. Klonopin. 4. Depakote. 5. Zetia. 6. Fenofibrate. 7. Multivitamins. 8. Folic acid. ALLERGIES: NONE. SOCIAL HISTORY: The patient lives independently in [place], [place]. She apparently ambulates with a cane. There knows no report of any alcohol or drug use. Her son has power of patent prosecution attorney. PHYSICAL EXAMINATION: GENERAL: The patient, when I entered the room, eyes were closed, but she does open it to voice. She is able to state her name, is confused as to location and year, but does know her name. She does follow commands. LUNGS: Clear to auscultation. CARDIAC: Regular rate and rhythm without murmur or gallop. ABDOMEN: Soft, nontender. EXTREMITIES: Unremarkable. IMAGING STUDIES: CT scan chest, abdomen, pelvis, cervical spine films obtained and are pending. ASSESSMENT AND PLAN: 1. Closed head injury. Treatment per Neurosurgery. Observe in ICU. 2. Multiple medical problems. Job ID: [id number]
--- NOTE | 2018-07-31 07:50 | RAD ---
CHEST 1 VIEW: HISTORY: Aspiration COMPARISON: 07/30/2018. FINDINGS: Minimal increased linear and interstitial markings bilaterally, slightly more prominent in the right perihilar region and lower lung zone, but stable from prior study. No new confluent process. IMPRESSION: Stable-appearing chest. Increased linear and interstitial markings in the right base, but stable. Transcribed Date/Time: 07/31/2018 9:56 AM
[2018-07-31] MEDS ORDERED: CCU Electrolyte Replacement 1 EACH FS SCH (07:54)
[2018-07-31] MEDS ORDERED: Potassium Phosphate 9 MMOL in Sodium Chloride 0.9% 100 ML IVPB PRN (07:56)
[2018-07-31] MEDS ORDERED: Potassium Chloride 20 MEQ TAB PO PRN (07:56)
[2018-07-31] MEDS ORDERED: PHOS-NAK 1 PKT PACK PO PRN ×2 (07:56)
[2018-07-31] MEDS ORDERED: Magnesium 2 GM/50 ML 2 GM in Premix Bag 1 BAG IVPB PRN (07:56)
[2018-07-31] MEDS ORDERED: Potassium Chloride 40 MEQ in Premix Bag 1 BAG IVPB PRN (07:56)
[2018-07-31] MEDS ORDERED: Potassium Phosphate 12 MMOL in Sodium Chloride 0.9% 250 ML 250 ML IV PRN (07:56)
[2018-07-31] MEDS ORDERED: Magnesium Oxide 400 MG TAB PO PRN ×2 (07:56)
[2018-07-31] MEDS ORDERED: Potassium Phosphate 15 MMOL in Sodium Chloride 0.9% 250 ML 250 ML IV PRN (07:56)
[2018-07-31] MEDS ORDERED: Potassium Chloride 40 MEQ in Sodium Chloride 0.9% 250 ML 250 ML IVPB PRN (07:56)
[2018-07-31] MEDS ORDERED: CCU ELECTROLYTE REPLACEMENT PROTOCOL FS PRN (07:56)
--- NOTE | 2018-07-31 07:59 | CT ---
CT OF HEAD NONCONTRAST: INDICATION: Followup imaging, brain injury. FINDINGS: The previously described subdural hematoma overlying the left convexity, which previously measured 13 -14 mm is stable. Associated sulcal effacement as well as rightward subfalcine herniation is redemonstrated measuring 7 mm at the level of the septum pellucidum, grossly stable. Subdural hematoma along the cerebellar te ntorium is stable. There is subtle minimally hyperdense subdural hematoma overlying the right aspect of the anterior to mid interhemispheric falx versus effacement of the left lateral ventricle is seen with mild dilatation of the right temporal horn grossly stable to indicate component of ventricular trapping. Localized anterior left parafalcine subdural hematoma is grossly stable. Again seen is a high left parietal scalp contusion. Stable mild extraaxial density overlies the anterior pole of the left temporal lobe, likely a small volume of extraaxial hemorrhage. IMPRESSION: Redemonstration of multifocal extraaxial hemorrhage with associated rightward subfalcine herniation, sulcal effacement, and a component of ventricular trapping. There is a newly developed subdural heather radha along the right aspect of the inner hemispheric falx which is relatively hypodense to the additi onal sites of hemorrhage and, therefore, could relate to hyperacute hemorrhage. This collection bernarda ures up to 6-7 mm in thickness. Recommend short-term followup for continued assessment. POS: MAUREEN
[2018-07-31] MEDS ORDERED: Tranexamic Acid 1,000 MG in Sodium Chloride 0.9% 250 ML 250 ML IVPB STA (08:00)
[2018-07-31] MEDS: Ciprofloxacin Lactate/D5W 200 MG in Premix Bag 1 BAG IVPB SCH ×2 (08:57→17:16)
[2018-07-31] MEDS: Famotidine/PF 20 mg/2ml Vial SLOW IVP SCH (09:00)
[2018-07-31] MEDS ORDERED: Tranexamic Acid 1,000 MG in Sodium Chloride 0.9% 100 ML IVPB SCH (09:30)
--- NOTE | 2018-07-31 11:02 | PRG ---
DATE OF SERVICE: 07/31/2018 SUBJECTIVE: The patient is seen and examined. I agree with April Blackmon's evaluation on 07/30/2018. The patient is a 63-year-old woman with a history of thrombocytopenia, who had a witnessed fall several days ago, was brought to the emergency room and had a negative head CT. She was re-brought to the emergency room yesterday with progressive obtundation and dysphasia. On physical exam, she was somewhat confused, dysphasic, does follow commands and interact with the examiner and has a right hemiparesis. CT scan reveals a large left subdural hematoma of mixed densities. Platelets are around 70. IMPRESSION AND PLAN: Large left subdural hematoma. Given the symptomatic mass effect, this will require drainage. She obviously has poor not only thrombocytopenia, but poor platelet function as she has diffuse ecchymoses all over her body. We will give her TXA to try to improve her platelet function. We will also transfuse with platelets. We will take her to surgery for libertad hole drainage and she is at high risk for incomplete evacuation given the mixed densities and high risk for requiring repeat evacuation down the road. Hopefully for now, we can at least alleviate the symptomatic mass effect. No family was available for the discussion. We will perform a 2-physician consent given the urgent nature of the procedure. Job ID: [id number]
--- NOTE | 2018-07-31 11:23 | CON ---
DATE OF CONSULTATION: 07/31/2018 TIME SPENT: 45 minutes critical care time. HISTORY OF PRESENT ILLNESS: Ms. Hernández is a 63-year-old female, who has been admitted to the Trauma Service after sustaining a fall and a left subdural hematoma. Apparently, she fell 2 to 3 days ago, actually came to the emergency room 2 days ago and was checked out and was discharged home after nothing was found. Yesterday, the patient's neighbor checked on her and found her to have altered mental status. She was brought back to the hospital, where she was noted to have a fairly significant left-sided subdural hematoma. She is probably going to go downstairs today for libertad holes. She will wake up and can answer some questions, but is inconsistent with answers. PAST MEDICAL HISTORY: 1. Bipolar disorder. 2. Chronic fatigue. 3. Previous hospitalization for hypocalcemia-taken care of by Dr. Cain at that time. 4. Depression. 5. Rhabdomyolysis. 6. Hypothyroidism. PAST SURGICAL HISTORY: 1. Thyroid surgery. 2. Oophorectomy. 3. Cystectomy. 4. Bilateral tubal ligation. MEDICATIONS: Prior to admission, 1. Aspirin. 2. Calcium citrate. 3. Klonopin. 4. Depakote. 5. Zetia. 6. Fenofibric acid. 7. Multivitamin. 8. Folate. 9. Perhaps fluoxetine. SOCIAL HISTORY: Previously not noted to be a smoker or a drinker. ALLERGIES: NONE. REVIEW OF SYSTEMS: Difficult to obtain secondary to her altered mental status. PHYSICAL EXAMINATION: VITAL SIGNS: Temperature 98.0, pulse 70, blood pressure 163/64, O2 saturation 99%. GENERAL: The patient will awaken and she follows some simple commands. HEENT: Her pupils are reactive to light. Her tongue protrudes in midline. She has visible bruising over the right shoulder, superior sternal area, and her right hand. CARDIAC: S1 and S2 regular without audible murmur. LUNGS: Clear to auscultation. No wheezing or rhonchi. ABDOMEN: Soft, nontender. She has old horizontal low midline scar. She also has right upper quadrant scar. No splenomegaly. No hepatomegaly. EXTREMITIES: No clubbing, cyanosis, or edema. LABORATORY DATA: White blood cell count 8.4, hemoglobin 10, hematocrit 30, platelet count 67. INR is 1.2, PTT is 27.4. Sodium 138, potassium 3.9, chloride 102, CO2 of 25, BUN 34, creatinine 1.2, and glucose 94. CPK 227. IMAGING STUDIES: Chest x-ray shows no mass, effusion, or infiltrate. ASSESSMENT: 1. Status post fall with large left subdural hematoma. 2. Significant thrombocytopenia. 3. Previous history of mental issues. 4. I doubt that she has aspiration pneumonitis based on the appearance of her x- ray. RECOMMENDATIONS: 1. This patient will need intraoperative platelets given. 2. It looks like that the Cipro is being given for UTI, so it is reasonable to continue for that indication. 3. Mild rhabdomyolysis. Plan intraoperative platelets. Monitor electrolytes. Job ID: [id number] MTDD
[2018-07-31] MEDS ORDERED: Lidocaine 0.5%/Epinephrine 1:200,000 50 ml Vial ONE (12:47)
[2018-07-31] MEDS ORDERED: Fentanyl 100 MCG/2 ML VIAL ONE (12:58)
[2018-07-31 16:40] LABS: Actual Bicarbonate (HCO3a) 21.4 mEq/L (22-28); Base Excess (BEa) -1.8 mEq/L (-2.0 to +3.0); Calcium, Ionized 1.04 mmol/L (1.12-1.30); Carboxyhemoglobin (COHb) 0.4 gm% (0.0-3.0); Hemoglobin (Hb) 10.1 g/dL (12.0-16.0); O2 Tension (PaO2) 138.5 mmHg (> 80.0); Potassium - ABG Lab 3.28 mmol/L (3.70-5.30); Puncture Site LR; pH, Arterial 7.46 (7.35-7.45)
--- NOTE | 2018-07-31 19:23 | PRG ---
DATE OF SERVICE: 07/31/2018 SUBJECTIVE: Crystal Hernández this morning is doing well. She is more awake and alert. She is oriented to date and time. She is slightly slow to answer. Dr. Urbano is planning libertad holes today. Her platelet count is chronically low and she has been administered platelets in preparation for that. OBJECTIVE: VITAL SIGNS: blood pressure 119/67, pulse 84. HEAD, EARS EYES, NOSE AND THROAT: Unremarkable. LUNGS: Clear to auscultation. CARDIAC: Regular rate and rhythm without murmur or gallop. ABDOMEN: Soft. NEUROLOGIC: Pupils reactive to light. She does follow commands. She is oriented to date and location. She moves all extremities, although slow to respond. LABORATORY DATA: Currently, hemoglobin is 10.2, white count 8.4. Basic metabolic profile unremarkable. BUN 34, creatinine 1.28. ASSESSMENT AND PLAN: 1. Significant subdural. Planned libertad holes per Dr. Urbano. 2. Chronic thrombocytopenia. Platelet transfusion. 3. Tendency to fall. Job ID: [id number]
[2018-07-31] MEDS: Morphine 2 MG/ML SYRINGE SLOW IVP PRN (19:52)
--- NOTE | 2018-07-31 20:17 | OP ---
DATE OF PROCEDURE: 07/31/2018 ASSET PROTECTION OFFICER: Irvin. PROCEDURE PERFORMED: Left libertad holes drainage subdural hematoma. DESCRIPTION OF PROCEDURE: The patient was brought to the operating room and intubated. She was positioned in supine with the head on a gel-filled donut. Two incisions were made in the left frontotemporal line and standard libertad holes were performed. The dura was coagulated and divided. The patient did have fairly diffuse bleeding from dural and bony surfaces likely related to her thrombocytopenia. After incising the dura, we encountered subdural hematoma which was extensively evacuated. There was a fair amount of liquid clot that was evacuated, decompressing the brain. Undoubtedly, there was still a significant found a solid clot that could not be evacuated. There did seem to be some amount of ooze from the brain surface, but from no specific site. Extensive irrigation of subdural space was performed. I attempted to place a drain, but could not get appropriate angle for adequate drain placement and ultimately aborted placement of the drain. Gelfoam was placed over the libertad holes and the incisions were closed in anatomic layers. Job ID: [id number]
[2018-07-31] MEDS ORDERED: Prevnar 13-Val Conj/PF 0.5 ML SYRINGE IM ONE (21:00)
[2018-08-01 04:53] LABS: Anion Gap 13 mmol/L (10-20); BUN (Urea Nitrogen) 37 mg/dL (9.8-20.1); Band 10 % (5-11); Calc. Creatinine Clearance 51 mL/min (70-130); Calcium 7.4 mg/dL (7.8-10.44); Carbon Dioxide 24 mmol/L (23-31); Chloride 104 mmol/L (98-107); Estimated GFR-MDRD 45; Glucose 102 mg/dL (80-115); Hemoglobin 8.2 g/dL (12.0-16.0); Lymphocytes 29 % (21-51); MDiff Complete? YES; Mean Corpuscular HGB CONC 34.1 g/dL (32.0-36.0); Mean Corpuscular Hemoglobin 34.2 pg (27.0-31.0); Mean Platelet Volume 10.1 fL (7.4-10.4); Metamyelocyte 1 % (0-0); Monocytes 16 % (0-10); Neutrophil 44 % (42-75); Platelet Count 52 thou/uL (130-400); Platelet Morphology Comment Appears Decreased; Potassium 4.4 mmol/L (3.5-5.1); RBC Distribution Width 15.3 % (11.5-14.5); Sodium 137 mmol/L (136-145); White Blood Cell (WBC) Count 4.9 thou/uL (4.8-10.8)
[2018-08-01] MEDS: Ciprofloxacin Lactate/D5W 200 MG in Premix Bag 1 BAG IVPB SCH ×2 (05:54→17:13)
[2018-08-01] MEDS: Morphine 2 MG/ML SYRINGE SLOW IVP PRN (06:04)
--- NOTE | 2018-08-01 07:22 | CT ---
CT HEAD NONCONTRAST: Date: 08/01/18 COMPARISON: Previous day. INDICATION: History of intracranial hemorrhage, status post evacuation/bur hole formation. FINDINGS: Interval performance of bur holes within the left frontoparietal calvarium with overlying skin staple s. There is a moderate degree of postoperative pneumocephalus overlying the left frontal convexity. I nterval reduction in volume of subdural hematomas previously mentioned which were present overlying l eft convexity and along the interhemispheric falx. Residual left-sided mixed density subdural fluid c ollection measures approximately 7.0 mm in thickness, which is reduced from recent comparison exam, s tatus post evacuation. There remains rightward subfalcine herniation, which measures 3-4 mm at the le jarek of the septum pellucidum, which has improved. Mild subdural hematoma overlying the cerebellar ten torium persists. There is a small volume of intraventricular hemorrhage. There has been interval impr ovement of effacement of the left lateral ventricle, although there is persistent mild asymmetry and size of the temporal horns, right greater than left. IMPRESSION: Interval evacuation of intracranial hemorrhage with two libertad holes of the left frontoparietal calvari um. Recommend continued imaging follow-up. POS: MAUREEN
--- NOTE | 2018-08-01 07:49 | RAD ---
AP view chest HISTORY: Pneumonia. AP view chest demonstrates EKG leads seen over the chest. No evidence of acute intrathoracic disease seen. No evidence of effusions, pneumonia or pneumothorax seen. Area of linear scarring seen in the medial aspect of the right lower lobe. IMPRESSION: stable AP view chest.
[2018-08-01] MEDS: Famotidine/PF 20 mg/2ml Vial SLOW IVP SCH (09:34)
--- NOTE | 2018-08-01 11:34 | PRG ---
DATE OF SERVICE: 08/01/2018 SUBJECTIVE: The patient is a 63-year-old female, who recently had a mechanical fall and was found to have a large mixed density left-sided subdural hematoma. She underwent a left-sided libertad hole drainage for evacuation of subdural hematoma on 07/31/2018. She is postoperative day #1. Following the surgery, she was monitored closely in the CCU. She has had significant improvement in her neurologic status and no overnight events. OBJECTIVE: On her exam this morning, she awakens easily and is opening her eyes spontaneously. She is alert and oriented x3. She is moving all fours and does not have any focal motor weakness. She is slightly generally weak throughout. Her dressings are dry and intact. ASSESSMENT AND PLAN: At this point, the patient has had significant neurologic improvement. We will plan to transition the patient to the floor. We will need to continue to mobilize and advance her diet. I anticipate that she will need inpatient rehabilitation versus SNF at discharge. I have placed a rehab screen. We will plan to follow up with the patient in 2 weeks for repeat evaluation and noncontrast head CT at that time. Job ID: [id number] MTDD
--- NOTE | 2018-08-01 11:35 | PRG ---
DATE OF SERVICE: 08/01/2018 SUBJECTIVE: The patient was extubated yesterday after surgery. She has done well. She is awake, somewhat confused, but stable. OBJECTIVE: VITAL SIGNS: On exam, temperature is 97.6, pulse 78, and blood pressure 134/71. A 24-hour intake 2422, output 1060. HEENT: She has a bandage over her jainism. NECK: No JVD. LUNGS: Clear to auscultation anteriorly. CARDIAC: S1 and S2, regular without audible murmur. ABDOMEN: Soft and nontender. EXTREMITIES: No edema. LABORATORY DATA: White blood cell count 4.9, hematocrit 24.0, and platelet count 52,000. Sodium 137, potassium 4.4, chloride 104, CO2 of 24, BUN 37, creatinine 1.2, and glucose 102. ASSESSMENT: 1. Status post subdural hematoma, requiring libertad holes. 2. Status post acute respiratory failure, requiring mechanical ventilation in a postoperative period. 3. Chronic thrombocytopenia, status post transfusion yesterday. PLAN: I am told she is being moved to the surgical floor. She will need to be on SCDs for DVT prophylaxis and she is still thrombocytopenic. Her chest x-ray is clear, so there are really no worries from that standpoint. I would advise against prolonged antibiotic therapy. Pulmonary will sign off. Please recall further assistance needed. Job ID: [id number]
[2018-08-01] MEDS: Sodium Chloride 0.9% 1,000 ML IV SCH (12:09)
--- NOTE | 2018-08-01 15:57 | PRG ---
DATE OF SERVICE: 08/01/2018 SUBJECTIVE: Crystal Hernández is doing well after libertad holes yesterday. OBJECTIVE: GENERAL: She is alert and oriented x3. She has been up in a chair. LUNGS: Clear to auscultation. CARDIAC: Regular rate and rhythm without murmur or gallop. ABDOMEN: Soft. VITAL SIGNS: Temperature 96.7 degrees, blood pressure 154/68. ASSESSMENT AND PLAN: Overall, she is doing well. She will be transferred to the floor. She should be sent to rehab in the future. We will work through that process. Dr. Urbano has already ordered PT, OT, and rehab evaluation and written transfer to the floor. Job ID: [id number]
[2018-08-01] MEDS: Acetaminophen 1,000 MG in Premix Bag 1 BAG IVPB SCH (19:07)
[2018-08-02] MEDS: Acetaminophen 1,000 MG in Premix Bag 1 BAG IVPB SCH ×3 (00:07→11:42)
[2018-08-02 06:03] LABS: #Eosinphils 0.1 thou/uL (0.0-0.7); #Lymphocytes 1.4 thou/uL (1.20-3.40); #Monocytes 0.7 thou/uL (0.11-0.59); #Neutrophils 2.5 thou/uL (1.40-6.50); %Basophils 0.2 % (0.0-1.0); %Eosinophils 2.6 % (0.0-10.0); %Neutrophils 53.2 % (42.0-75.0); Hemoglobin 8.3 g/dL (12.0-16.0); Mean Corpuscular HGB CONC 35.4 g/dL (32.0-36.0); Mean Corpuscular Hemoglobin 35.9 pg (27.0-31.0); Mean Platelet Volume 6.3 fL (7.4-10.4); Platelet Count 39 thou/uL (130-400); RBC Distribution Width 15.3 % (11.5-14.5); White Blood Cell (WBC) Count 4.7 thou/uL (4.8-10.8)
[2018-08-02 06:13] LABS: Anion Gap 13 mmol/L (10-20); BUN (Urea Nitrogen) 29 mg/dL (9.8-20.1); Calc. Creatinine Clearance 72 mL/min (70-130); Calcium 7.5 mg/dL (7.8-10.44); Carbon Dioxide 22 mmol/L (23-31); Chloride 109 mmol/L (98-107); Estimated GFR-MDRD 66; Glucose 79 mg/dL (80-115); Magnesium 1.6 mg/dL (1.6-2.6); Phosphorus 2.2 mg/dL (2.3-4.7); Potassium 3.9 mmol/L (3.5-5.1); Sodium 140 mmol/L (136-145)
[2018-08-02] MEDS: Sodium Chloride 0.9% 1,000 ML IV SCH (06:34)
[2018-08-02] MEDS: Ciprofloxacin Lactate/D5W 200 MG in Premix Bag 1 BAG IVPB SCH (06:34)
[2018-08-02] MEDS: Famotidine/PF 20 mg/2ml Vial SLOW IVP SCH (08:23)
--- NOTE | 2018-08-02 10:17 | PRG ---
DATE OF SERVICE: 08/02/2018 The patient is a 63-year-old female, who is postoperative day #2, status post libertad hole drainage of a left-sided subdural hematoma. She was transitioned to the floor yesterday. She has had no additional issues. She remains neurologically much improved and has no complaints this morning. On her labs, I did notice that her platelet count continues to trend downward and is 39,000 today. On exam this morning, the patient is A and O x3. She has free active range of motion of all extremities. No focal motor weakness. Her dressing is dry and her incisions are intact. The patient will require inpatient rehabilitation versus fci at discharge. We should continue to work on mobilizing and advancing her diet. With regard to her worsening thrombocytopenia, I have discussed with the Trauma Team and we will ask Hem/Onc for their recommendations. I anticipate she will be able to go to rehab in the next few days. Job ID: [id number]
--- NOTE | 2018-08-02 14:57 | RAD ---
XR Ba Swallow W/Speech Therap History: [Dysphagia, unspecified R13.10 feeding difficulties R63.3] Comparison: None. Findings: Multiple consistency contrast was given to the patient via the speech pathologist. No aspir ation or penetration. IMPRESSION: No aspiration or penetration. Please see speech pathologist report for details of the exa mination. Fluoroscopy time: 2.5 minutes.
[2018-08-02 15:02] VITALS: BMI 27.5
[2018-08-02 15:33] VITALS: BP 152/85; TEMP 98.5
--- NOTE | 2018-08-03 02:13 | DIS ---
DATE OF ADMISSION: 07/30/2018 DATE OF DISCHARGE: 08/02/2018 ADMISSION DIAGNOSES: 1. Status post fall. 2. Left subdural hematoma with midline shift. 3. Left scalp hematoma. 4. Acute kidney injury. 5. Aspiration pneumonitis. 6. Hyponatremia, hypokalemia, hypophosphatemia, and elevated CK. 7. Urinary tract infection, uncomplicated. CONSULTATIONS: Neurosurgery, Dr. Urbano. PROCEDURES: [place] hole drainage of left-sided subdural hematoma. SUMMARY: The patient is a 63-year-old female who reportedly had a ground level fall 2 days prior to her date of admission. On that date, she had come to the emergency department after a fall, underwent evaluation, examination, and was able to be discharged back home. She was found on the day of admission by a neighbor who noted that she had altered mental status. She was brought back to the emergency department where she underwent re-evaluation and was noted to have the above injuries. She was taken to the operating room to undergo her procedure with Dr. Urbano, which she tolerated well. The patient's mental status over the next 2 days had improved and she was able to be discharged to [facility]. At the time of discharge, the patient undergone a modified barium swallow as with modified recommendations by Speech Therapy, which will carry on to her skilled facility. The patient was also noted to be acute on chronic thrombocytopenic after discussion with Oncology here, they felt that this was most likely ITP and possibly related to her antidepressants, which we changed from her Depakote to Abilify. Dr. Pearce also discussed with her primary care provider, Dr. Charli Christianson regarding her thrombocytopenia, and he will follow her up again next week. The patient will follow up with Neurosurgery in approximately 2 weeks for repeat head CT and possible readmission for repeat drainage of her subdural hematoma. This is all to be determined at her followup appointment. The patient may follow up with the Trauma Clinic as needed. Job ID: [id number]
[2018-08-03] MEDS ORDERED: predniSONE 5 MG TAB PO SCH (08:00)
[2018-08-03] MEDS ORDERED: Aripiprazole 2 MG TAB PO SCH (09:00)
--- NOTE | 2018-08-03 17:00 | EKG ---
Test Reason : AMS Blood Pressure : / mmHG Vent. Rate : 079 BPM Atrial Rate : 079 BPM P-R Int : 170 ms QRS Dur : 082 ms QT Int : 418 ms P-R-T Axes : 064 -42 -49 degrees QTc Int : 479 ms Normal sinus rhythm Possible Left atrial enlargement Left axis deviation Left ventricular hypertrophy with repolarization abnormality Abnormal ECG ST depression II, III, aVF, V4-V6 Confirmed by SARAH DUENAS DO ([id number]), photograph editor HOWIE HERNANDEZ ([id number]) on 08/03/2018 4:59:42 PM Referred By: Confirmed By:SARAH DUENAS DO
== END 2018-08-02 17:37 | disposition home or self-care (01) | DRG 25 ==
LOC: ERS 17:03 → CCU 22:02 → SURG B 08-01 18:01
PROVIDERS: ADMIT Neurological Surgery; ATTEND Neurological Surgery
PROC: 00C73ZZ Extirpation of Matter from Cerebral Hemisphere, Percutaneous Approach (ICD-10-PCS; principal; 2018-07-31)
DX: S06.5X0A Traumatic subdural hemorrhage without loss of consciousness, initial encounter (principal); G93.5 Compression of brain; J96.00 Acute respiratory failure, unspecified whether with hypoxia or hypercapnia; N17.9 Acute kidney failure, unspecified; E87.1 Hypo-osmolality and hyponatremia; N39.0 Urinary tract infection, site not specified; M62.82 Rhabdomyolysis; D69.3 Immune thrombocytopenic purpura; W18.30XA Fall on same level, unspecified, initial encounter; Y92.9 Unspecified place or not applicable; E03.9 Hypothyroidism, unspecified; D69.6 Thrombocytopenia, unspecified; F31.9 Bipolar disorder, unspecified; F41.9 Anxiety disorder, unspecified; E78.5 Hyperlipidemia, unspecified; E87.6 Hypokalemia; E83.39 Other disorders of phosphorus metabolism; M81.0 Age-related osteoporosis without current pathological fracture; Z79.82 Long term (current) use of aspirin; Z98.51 Tubal ligation status; Z79.899 Other long term (current) drug therapy
CPT/HCPCS: 36415; 36416; 36430; 70450; 71045; 71260; 72125; 74177; 74230; 80048; 80053; 80306; 80307; 81001; 82550; 82805; 83605; 83735; 84100; 84484; 85025; 85610; 85730; 86850; 86900; 86901; 87077; 87086; 87186; 93005; 94002; A4353; G0390; J0131; J0360; J0690; J0744; J2001; J2270; J2405; J3010; J3475; J3480; J3490; J7050; P9035; S0028

== ENCOUNTER 2018-09-27 17:21 | Inpatient (IN) | payer MEDICARE, BC ==
[2018-09-27 17:51] LABS: #Eosinphils 0.1 thou/uL (0.0-0.7); #Lymphocytes 0.6 thou/uL (1.20-3.40); #Monocytes 0.3 thou/uL (0.11-0.59); #Neutrophils 1.8 thou/uL (1.40-6.50); %Lymphocytes 22.1 % (21.0-51.0); %Monocytes 11.1 % (0.0-10.0); %Neutrophils 63.8 % (42.0-75.0); Hemoglobin 13.4 g/dL (12.0-16.0); Mean Corpuscular HGB CONC 34.3 g/dL (32.0-36.0); Mean Corpuscular Hemoglobin 32.6 pg (27.0-31.0); Mean Corpuscular Volume 94.8 fL (78.0-98.0); Mean Platelet Volume 6.2 fL (7.4-10.4); Platelet Count 96 thou/uL (130-400); RBC Distribution Width 11.3 % (11.5-14.5); Red Blood Cell (RBC) Count 4.11 mill/uL (4.20-5.40); White Blood Cell (WBC) Count 2.8 thou/uL (4.8-10.8)
[2018-09-27 18:13] LABS: ALT (SGPT) 13 U/L (8-55); AST (SGOT) 31 U/L (5-34); Albumin 4.2 g/dL (3.4-4.8); Alkaline Phosphatase 64 U/L (40-150); Anion Gap 14 mmol/L (10-20); BUN (Urea Nitrogen) 21 mg/dL (9.8-20.1); Bilirubin, Total 0.6 mg/dL (0.2-1.2); CK (CPK) 48 U/L (29-168); Calc. Creatinine Clearance 0 mL/min (70-130); Calcium 9.7 mg/dL (7.8-10.44); Carbon Dioxide 28 mmol/L (23-31); Chloride 95 mmol/L (98-107); Estimated GFR-MDRD 66; Globulin 2.6 g/dL (2.4-3.5); Glucose 86 mg/dL (80-115); Magnesium 1.7 mg/dL (1.6-2.6); Potassium 3.2 mmol/L (3.5-5.1); Protein, Total 6.8 g/dL (6.0-8.3); Sodium 134 mmol/L (136-145)
--- NOTE | 2018-09-27 18:25 | RAD ---
EXAM: CHEST ONE VIEW: 09/27/18 HISTORY: Altered mental status. Numbness to both hands. COMPARISON: 08/01/18. FINDINGS: Heart size is within normal limits. The lungs are clear. Old deformity of the left humeral neck. IMPRESSION: No acute intrathoracic disease. Atherosclerosis of the aorta. POS: MARIBELL
--- NOTE | 2018-09-27 19:00 | CT ---
Exam: Head CT without contrast HISTORY: Altered mental status. Bilateral hand numbness COMPARISON: 08/01/2018 FINDINGS: Hemorrhage: Mixed attenuation extra-axial collection along the left frontal, temporal and parietal co nvexities compatible with a subdural hematoma. There is no significant effacement and mass effect. No midline shift. Basilar cisterns are patent. Brain parenchyma: Cortical jerome-white matter differentiation is preserved. Ventricular system: Ventricles and sulci are patent and symmetric. Calvarium: Stable postsurgical changes with libertad holes in the left frontal calvarium. Sinuses and mastoid air cells: Adequate aeration. IMPRESSION: 1. Mixed attenuation the left extra-axial collection, compatible with a subdural hematoma. There is a hyperdense component along the left frontal convexity which may represent an acute upon subacute blood. No significant mass effect or midline shift. Results of study discussed with Dr. Bueno 09/27/2018 at 6:57 PM Code CR Transcribed Date/Time: 09/27/2018 8:23 PM
[2018-09-27] MEDS ORDERED: levETIRAcetam In NaCl (Iso-Os) 1,000 MG in Premix Bag 1 BAG IVPB SCH (19:45)
[2018-09-27] MEDS ORDERED: Acetaminophen 325 MG TAB PO PRN (19:51)
[2018-09-27] MEDS ORDERED: Ondansetron PF 4 MG/2 ML Vial IVP PRN (19:51)
[2018-09-27] MEDS ORDERED: [UNRECOGNIZED DRUG - REMARK] FS SCH (20:15)
[2018-09-27 20:45] LABS: Bilirubin Negative (Negative); Blood, Urine Negative (Negative); Clarity Clear (Clear); Glucose, Urine (Dipstick) Normal (Negative); Leukocyte Negative Leu/uL (Negative); Nitrite Negative (Negative); Protein, Urine (Dipstick) Negative (Neg-Trace); Urobilinogen Normal mg/dL (Less than 2)
[2018-09-27] MEDS: hydrALAZINE 20 MG/ML VIAL SLOW IVP PRN (21:13)
[2018-09-27] MEDS: Sodium Chloride 0.9% 1,000 ML IV SCH (21:13)
[2018-09-27] MEDS: Pantoprazole 40 MG VIAL IVP SCH (21:13)
[2018-09-27 21:26] VITALS: BMI 19.3
--- NOTE | 2018-09-27 23:47 | HP ---
This is Craig Mena PA-C dictating a report for Keanu Lundberg MD. This is a 50-minute initial patient evaluation of which greater than 50% of the exam was spent counseling and coordinating the patient's care, remainder of the exam was spent in review of the patient's medical records and formulation of treatment plan as well as review of appropriate imaging studies. CHIEF COMPLAINT: Left-sided balance difficulties, numbness and tingling with paresthesias into the bilateral hands and left small acute on chronic subdural hematoma. HISTORY OF PRESENT ILLNESS: Ms. Hernández is a pleasant 63-year-old female, who presents to [facility] for the above complaints. Apparently, the patient fell secondary to a right ankle fracture and was found to have large chronic subdural hematoma that was evacuated by Dr. Urbano on 07/31/2018. The patient did well postoperatively. Eventually went to [facility] and then home. The patient lives alone. Apparently, she had been taking all her regular medications, which included an 81 mg aspirin. The patient reports that she has not been taking this. However, given that she has peel-away pill packs, there is an 81 mg aspirin included in this. The patient denies no further falls. Over the past 3 or 4 days, she has noticed some progressive balance difficulties as she lifts to the left when walking. She has noticed also some questionable left facial droop, decreased sensation into the left side of the face, and bilateral hand paresthesias. She has no reported seizure history. Review of patient's head CT shows a very small acute on chronic left subdural hematoma that is improved compared to both her preoperative and postoperative scans. There is no midline shift and no mass effects noted. PHYSICAL EXAMINATION: The patient is awake, alert, and appropriate. She has a very small amount of slurred speech occasionally, but she is hard of hearing. GCS is 15. She follows commands equally in all 4 extremities. Pupils are equal, round, and reactive bilaterally. There is no nystagmus noted on exam. There is no sign of seizure activity. She has no pronator drift. She is able to correctly identify a pen and state its purpose. IMPRESSION AND DIAGNOSES: 1. Acute on chronic subdural hematoma with previous left frontal libertad hole placement, 07/31/2018, by Dr. Foley. 2. Aspirin. PLAN: I have discussed the patient's case and imaging with Dr. Lundberg. At this time, we will admit the patient to CCU for close neurologic observation including q.1 hour neuro checks. She may have clear liquid. We will plan to repeat her head CT in the morning sooner should her neurologic exam change. The patient is on Depakote. Therefore, we will check this level and ensure that she is therapeutic. If not, we will adjust her dosage. Otherwise, the patient's head of bed should be elevated at 30 degrees at all times. I would like her to be on bed rest with bathroom privileges. We will also consult Critical Care and our [facility] colleagues to help with patient's medical management. Otherwise, at this time, it does not appear that the patient needs neurosurgical intervention as her neurologic exam is stable. Again, please call with any changes in patient's neurologic status. I would like her systolic blood pressure to remain less than 150. Job ID: [id number]
[2018-09-28] MEDS: hydrALAZINE 20 MG/ML VIAL SLOW IVP PRN (04:14)
[2018-09-28 05:55] LABS: Chloride 100 mmol/L (98-107); Potassium 3.1 mmol/L (3.5-5.1); Sodium 136 mmol/L (136-145)
[2018-09-28 05:56] LABS: Glucose 71 mg/dL (80-115)
[2018-09-28 05:58] LABS: Anion Gap 14 mmol/L (10-20); Carbon Dioxide 25 mmol/L (23-31)
[2018-09-28 06:00] LABS: BUN (Urea Nitrogen) 18 mg/dL (9.8-20.1); Calc. Creatinine Clearance 63 mL/min (70-130); Estimated GFR-MDRD 76
[2018-09-28 06:06] LABS: Band 5 % (5-11); Eosinophils 3 % (0-10); Hemoglobin 12.5 g/dL (12.0-16.0); Lymphocytes 32 % (21-51); MDiff Complete? YES; Mean Corpuscular HGB CONC 34.7 g/dL (32.0-36.0); Mean Platelet Volume 6.2 fL (7.4-10.4); Monocytes 13 % (0-10); Myelocyte 1 % (0-0); Neutrophil 43 % (42-75); Platelet Count 96 thou/uL (130-400); Platelet Morphology Comment Appears Decreased; RBC Distribution Width 11.3 % (11.5-14.5); Reactive Lymphocytes 3 % (0-10); Red Blood Cell (RBC) Count 3.81 mill/uL (4.20-5.40); White Blood Cell (WBC) Count 2.7 thou/uL (4.8-10.8)
--- NOTE | 2018-09-28 07:20 | CT ---
CT HEAD NONCONTRAST: Date: 09/28/18 HISTORY: Intracranial hemorrhage, follow-up. Reference made to exam from previous day. FINDINGS: There is grossly stable volume of mixed density, predominantly hyperdense extra-axial fluid collectio n overlying the left cerebral convexity, grossly stable in volume. Thickness measures up to approxima tely 8 mm, stable, in a similar location overlying the left frontal lobe, when compared to exam from previous day. Ventricular system is prominent in volume, stable. No significant shift of midline. No additional significant interval change. IMPRESSION: Grossly stable, predominantly hyperdense subdural hematoma overlying the left convexity. POS: NILDAK
[2018-09-28] MEDS ORDERED: Loratadine 10 MG TAB PO PRN (09:25)
[2018-09-28] MEDS ORDERED: Loperamide HCl 2 MG CAP PO PRN (09:25)
[2018-09-28] MEDS ORDERED: Diabetic Tussin 200 MG/10 ML UDCUP PO PRN (09:25)
[2018-09-28] MEDS ORDERED: Sodium Chloride 0.65% Nasal 44 ML BOT EA NARE PRN (09:25)
[2018-09-28] MEDS ORDERED: Ondansetron ODT 4 MG TAB PO PRN (09:25)
[2018-09-28] MEDS ORDERED: Bisacodyl 10 MG SUPP PR PRN (09:25)
[2018-09-28] MEDS ORDERED: Artificial Tears 18 DROP/0.9 ML EA EYE PRN (09:25)
[2018-09-28] MEDS ORDERED: Acetaminophen 500 MG TAB PO PRN (09:25)
[2018-09-28] MEDS ORDERED: HYDROcodone/Acetaminophen 5/325 mg Tablet PO PRN (09:25)
[2018-09-28] MEDS ORDERED: clonazePAM 0.5 MG TAB PO SCH ×2 (09:45→21:00)
[2018-09-28] MEDS ORDERED: Calcium Citrate 950 MG TAB PO SCH ×2 (09:45→21:00)
[2018-09-28] MEDS ORDERED: FLUoxetine HCl 20 MG CAP PO SCH (09:45)
[2018-09-28] MEDS ORDERED: Aripiprazole 2 MG TAB PO SCH (09:45)
[2018-09-28] MEDS ORDERED: Fenofibrate Nanocrystallized 145 MG TAB PO SCH (09:45)
[2018-09-28] MEDS ORDERED: Potassium Chloride 20 MEQ TAB PO SCH (11:45)
--- NOTE | 2018-09-28 12:53 | PRG ---
DATE OF SERVICE: 09/28/2018 Ms. Hernández was readmitted following left-sided for multi-aged subdural hematoma. She was readmitted for dizziness and gait disturbance. Her head CT demonstrates improvement in the subdural hematoma compared to preoperatively. She was on Depakote for bipolar disorder and this is used for mood stabilization. Her primary care physician, Dr. Christianson from [facility], per the patient recently took her off her Depakote. Nevertheless, her level is 149 and normal is up to 100, as such I suspect this is the culprit of her symptoms and we will hold her Depakote today and recheck a level tomorrow. I have advocated against her coming off Depakote in particular, those at risk for seizure, with recent subdural hematoma, the patient can have manic episodes. As such, we will reinitiate her Depakote when her level drops to more of a therapeutic level, we will transfer to the floor. Job ID: [id number]
--- NOTE | 2018-09-28 13:48 | PDOC.HOSPP ---
- Subjective Subjective: Patient seen and examined. No new complaints. No overnight events pt denies any fall this time, no headache, no FND - Objective Vital Signs & Weight: Vital Signs (12 hours) Temp Pulse Pulse BP BP Pulse Ox 09/28/18 12:00 98.5 F 09/28/18 09:25 84 95 143/74 H 142/100 H 09/28/18 09:00 97.9 F 09/28/18 08:00 100 09/28/18 06:00 98.3 F 09/28/18 02:00 98.2 F Weight Admit Weight 120 lb 1.6 oz Weight 120 lb 1.6 oz Most Recent Monitor Data Heart Rate from ECG 91 NIBP 139/101 NIBP BP-Mean 113 Respiration from ECG 20 SpO2 100 I&O: 09/27/18 09/28/18 09/29/18 06:59 06:59 06:59 Intake Total 726 984 Output Total 900 Balance -174 984 Result Diagrams: 09/28/18 04:44 09/28/18 04:44 Radiology Reviewed by me: Yes (CT brain reviewed, stable) EKG Reviewed by me: Yes (NSR) ROS - Review of Systems All systems: All other ROS were reviewed and found negative. Constitutional: denies: fever, chills, sweats, weakness, malaise, other Eyes: denies: pain, vision change, conjunctivae inflammation, eyelid inflammation, redness, other ENT: denies: ear pain, ear discharge, nose pain, nose discharge, nose congestion , mouth pain, mouth swelling, throat pain, throat swelling, other Respiratory: denies: cough, dry, shortness of breath, hemoptysis, SOB with excertion, pleuritic pain, sputum, wheezing, other Cardiovascular: denies: chest pain, palpitations, orthopnea, paroxysmal noc. dyspnea, edema, light headedness, other Gastrointestinal: denies: nausea, vomitting, abdominal pain, diarrhea, constipation, melena, hematochezia, other Genitourinary: denies: dysuria, frequency, incontinence, hematuria, retention, other Musculoskeletal: denies: neck pain, shoulder pain, arm pain, back pain, hand pain, leg pain, foot pain, other Skin: denies: rash, lesions, tomasz, bruising, other - Medication Medications: Active Medications Generic Name Dose Route Start Last Admin Trade Name Freq PRN Reason Stop Dose Admin Hydralazine HCl 5 mg 09/27/18 19:56 09/28/18 04:14 Apresoline SLOW IVP 5 mg Q15MIN PRN Administration Sbp Greater Than 150 Sodium Chloride 1,000 mls @ 50 mls/hr 09/27/18 20:00 09/27/18 21:13 Normal Saline 0.9% IV 1,000 mls .Q20H KIANA Administration Pantoprazole Sodium 40 mg 09/27/18 21:00 09/27/18 21:13 Protonix IVP 40 mg HS KIANA Administration - Exam NAD, awake alert Eye: PERRL, anicteric sclera ENT: normocephalic atraumatic, no oropharyngeal lesions Neck: supple, symmetric, no JVD Heart: RRR, no murmur, no gallops, no rubs Respiratory: CTAB, no wheezes, no rales, no ronchi Gastrointestinal: soft, non-tender, non-distended, normal bowel sounds Extremities: no cyanosis, no clubbing, no edema Skin: normal turgor, no lesions, no rashes Neurological: CN's grossly intact, normal sensation to touch, no focal deficits Musculoskeletal: normal tone, normal strength, no muscle wasting Psychiatric: normal affect, normal behavior Hosp A/P (1) Acute on chronic intracranial subdural hematoma Code(s): I62.01 - NONTRAUMATIC ACUTE SUBDURAL HEMORRHAGE; I62.03 - NONTRAUMATIC CHRONIC SUBDURAL HEMORRHAGE Status: Acute (2) Hypokalemia Code(s): E87.6 - HYPOKALEMIA Status: Acute (3) Anxiety and depression Code(s): F41.9 - ANXIETY DISORDER, UNSPECIFIED; F32.9 - MAJOR DEPRESSIVE DISORDER, SINGLE EPISODE, UNSPECIFIED Status: Chronic (4) Bipolar disorder Code(s): F31.9 - BIPOLAR DISORDER, UNSPECIFIED Status: Chronic (5) Dyslipidemia Code(s): E78.5 - HYPERLIPIDEMIA, UNSPECIFIED Status: Chronic (6) HTN (hypertension) Code(s): I10 - ESSENTIAL (PRIMARY) HYPERTENSION Status: Chronic (7) Leucopenia Code(s): D72.819 - DECREASED WHITE BLOOD CELL COUNT, UNSPECIFIED Status: Chronic (8) Thrombocytopenia Code(s): D69.6 - THROMBOCYTOPENIA, UNSPECIFIED Status: Chronic - Plan old records reviewed/req, PT/OT, DVT proph w/SCDs pt is medically stable transfer to stroke floor neuro check does not need surgical intervention start PT/OT medication reviewed as below symptomatic treatment selected home medication reconciled
[2018-09-28] MEDS: Sodium Chloride 0.9% 1,000 ML IV SCH (18:29)
--- NOTE | 2018-09-28 18:40 | CON ---
DATE OF CONSULTATION: 09/28/2018 SUBJECTIVE: Ms. Hernández is a 63-year-old female. She presented with numbness and tingling in both hands and some balance difficulty. She has undergone evacuation of a subdural hematoma in July. She completed rehab, went home. She presented with three days of the above symptoms. She subsequently was admitted. She has no complaints. She was seen by my associate, Dr. Joseph last admission. PAST MEDICAL HISTORY: Remarkable for, 1. Bipolar disorder. 2. History of fatigue. 3. History of hypocalcemia in the past. 4. History of depression. 5. History of hypothyroidism. 6. History of thyroid surgery. 7. History of oophorectomy. 8. Status post cystectomy. 9. History of tubal ligation. 10. History of hospitalization in October of 2015 with altered mental status. 11. History of admission with change in mental status secondary to polypharmacy. 12. History of UTI with admission. 13. History of benzodiazepine dependence in the past. 14. History of normal parathyroid hormone level with hypocalcemia. She apparently had a parathyroid gland reimplanted with her thyroidectomy. When she was seen by me in 2015, she was on lithium, Klonopin, venlafaxine for her bipolar illness. FAMILY HISTORY: Positive for thyroid disease, osteoporosis. Negative for lung disease in early age. SOCIAL HISTORY: She is a nonsmoker, nondrinker, nondrug user. ALLERGIES: SHE HAS NO REPORTED DRUG ALLERGIES. REVIEW OF SYSTEMS: Twelve point review of systems is otherwise negative. PHYSICAL EXAMINATION: GENERAL: She is a very pleasant, sitting in bedside chair, in no distress. VITAL SIGNS: She is afebrile. Heart rate is in the 70s, respiratory rate 16, oximetry is 96% on room air. HEENT: Pupils are equal. Sclerae are anicteric. Extraocular movements appear intact. NECK: Supple. No lymphadenopathy. LUNGS: Clear. HEART: Regular rhythm. S1 and S2 are normal. ABDOMEN: Soft and nontender. EXTREMITIES: Without clubbing, cyanosis, or edema. LABORATORY STUDIES: White count 2.7, hemoglobin 12.5, platelets 96,000. Electrolytes remarkable for potassium of 3.1 and calcium is 9.0. Head CT was done and compared to old CTs. 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 Very small extra-axial fluid collection was noted over lying the left cerebral complex convexity, measured up to 8 mm. She was noted to have an elevated Depakote level. She has been seen by Neurosurgery. They recommended holding her Depakote until it returns toward normal level and felt that maybe this accounted for her symptoms of presentation. IMPRESSION: 1. Subdural hematoma, status post evacuation, clinically stable. 2. Vague neurological symptoms perhaps secondary to Depakote toxicity. 3. Deconditioning. 4. Bipolar illness. She is stable to move out of Critical Care Unit. TIME SPENT: This is a 70-minute consult, with greater than 50% of the time was spent on the unit coordinating care. Job ID: [id number] MTDD
[2018-09-28] MEDS ORDERED: Docusate 100 MG CAP PO SCH (21:00)
[2018-09-28] MEDS: Senokot S 8.6-50 MG TAB PO PRN (21:10)
[2018-09-28] MEDS: Pantoprazole 40 MG VIAL IVP SCH (21:10)
[2018-09-29 05:37] LABS: Anion Gap 11 mmol/L (10-20); BUN (Urea Nitrogen) 15 mg/dL (9.8-20.1); Calc. Creatinine Clearance 57 mL/min (70-130); Calcium 8.2 mg/dL (7.8-10.44); Carbon Dioxide 26 mmol/L (23-31); Chloride 101 mmol/L (98-107); Estimated GFR-MDRD 68; Glucose 127 mg/dL (80-115); Potassium 3.5 mmol/L (3.5-5.1); Sodium 134 mmol/L (136-145); Valproic Acid (Depakene) 55.3 ug/mL (50.0-100.0)
[2018-09-29 06:55] LABS: Band 8 % (5-11); Eosinophils 1 % (0-10); Hemoglobin 11.5 g/dL (12.0-16.0); Lymphocytes 35 % (21-51); MDiff Complete? YES; Mean Corpuscular HGB CONC 33.5 g/dL (32.0-36.0); Mean Corpuscular Hemoglobin 32.6 pg (27.0-31.0); Mean Corpuscular Volume 97.1 fL (78.0-98.0); Mean Platelet Volume 6.5 fL (7.4-10.4); Monocytes 10 % (0-10); Neutrophil 46 % (42-75); Platelet Count 90 thou/uL (130-400); Platelet Morphology Comment Appears Decreased; RBC Distribution Width 11.3 % (11.5-14.5); Red Blood Cell (RBC) Count 3.54 mill/uL (4.20-5.40); White Blood Cell (WBC) Count 3.1 thou/uL (4.8-10.8)
[2018-09-29] MEDS: FLUoxetine HCl 20 MG CAP PO SCH (08:33)
[2018-09-29] MEDS: Aripiprazole 2 MG TAB PO SCH (08:33)
[2018-09-29] MEDS ORDERED: Folic Acid 1 MG TAB PO SCH (09:00)
[2018-09-29] MEDS ORDERED: Multivit, Therapeutic 1 TAB PO SCH (09:00)
[2018-09-29] MEDS ORDERED: Fenofibrate Nanocrystallized 145 MG TAB PO SCH (09:00)
[2018-09-29] MEDS ORDERED: Cyanocobalamin (Vitamin B-12) 1,000 MCG TAB PO SCH (09:00)
--- NOTE | 2018-09-29 10:53 | PDOC.HOSPP ---
- Subjective Subjective: Patient seen and examined. No new complaints. No overnight events - Objective Vital Signs & Weight: Vital Signs (12 hours) Temp Pulse Resp BP Pulse Ox 09/29/18 08:00 98.4 F 74 20 149/67 H 98 09/29/18 05:19 98.5 F 62 16 139/61 98 09/29/18 00:00 98.7 F 68 15 133/63 97 Weight Admit Weight 120 lb 1.6 oz Weight 120 lb 1.6 oz Most Recent Monitor Data Heart Rate from ECG 91 NIBP 139/101 NIBP BP-Mean 113 Respiration from ECG 20 SpO2 100 I&O: 09/28/18 09/29/18 09/30/18 06:59 06:59 06:59 Intake Total 726 3233 Output Total 900 200 Balance -174 3033 Result Diagrams: 09/29/18 04:37 09/29/18 04:37 EKG Reviewed by me: Yes ROS - Review of Systems All systems: All other ROS were reviewed and found negative. Eyes: denies: pain, vision change, conjunctivae inflammation, eyelid inflammation, redness, other ENT: denies: ear pain, ear discharge, nose pain, nose discharge, nose congestion , mouth pain, mouth swelling, throat pain, throat swelling, other Respiratory: denies: cough, dry, shortness of breath, hemoptysis, SOB with excertion, pleuritic pain, sputum, wheezing, other Cardiovascular: denies: chest pain, palpitations, orthopnea, paroxysmal noc. dyspnea, edema, light headedness, other Gastrointestinal: denies: nausea, vomitting, abdominal pain, diarrhea, constipation, melena, hematochezia, other Genitourinary: denies: dysuria, frequency, incontinence, hematuria, retention, other Musculoskeletal: denies: neck pain, shoulder pain, arm pain, back pain, hand pain, leg pain, foot pain, other Skin: denies: rash, lesions, tomasz, bruising, other - Medication Medications: Active Medications Generic Name Dose Route Start Last Admin Trade Name Freq PRN Reason Stop Dose Admin Aripiprazole 2 mg 09/29/18 09:00 09/29/18 08:33 Abilify PO 2 mg DAILY KIANA Administration Fluoxetine HCl 60 mg 09/29/18 09:00 09/29/18 08:33 Prozac PO 60 mg DAILY KIANA Administration Hydralazine HCl 5 mg 09/27/18 19:56 09/28/18 04:14 Apresoline SLOW IVP 5 mg Q15MIN PRN Administration Sbp Greater Than 150 Sodium Chloride 1,000 mls @ 50 mls/hr 09/27/18 20:00 09/28/18 18:29 Normal Saline 0.9% IV 1,000 mls .Q20H KIANA Administration Ondansetron HCl 4 mg 09/27/18 19:51 09/28/18 16:18 Zofran IVP 4 mg Q6H PRN Administration Nausea/Vomiting Pantoprazole Sodium 40 mg 09/27/18 21:00 09/28/18 21:10 Protonix IVP 40 mg HS KIANA Administration Senna/Docusate Sodium 2 tab 09/28/18 09:25 09/28/18 21:10 Senokot S PO 2 tab BIDPRN PRN Administration Constipation - Exam NAD, awake alert Eye: PERRL, anicteric sclera ENT: normocephalic atraumatic, no oropharyngeal lesions Neck: supple, symmetric, no JVD, no Thyromegaly Heart: RRR, no murmur, no gallops, no rubs Respiratory: CTAB, no wheezes, no rales, no ronchi Gastrointestinal: soft, non-tender, non-distended, normal bowel sounds, no palpable masses, no hepatomegaly Extremities: no cyanosis, no clubbing, no edema Skin: normal turgor, no lesions, no rashes Neurological: CN's grossly intact, normal sensation to touch, no focal deficits , no new deficit Musculoskeletal: normal tone, normal strength, no muscle wasting Psychiatric: normal affect, normal behavior Hosp A/P (1) Acute on chronic intracranial subdural hematoma Code(s): I62.01 - NONTRAUMATIC ACUTE SUBDURAL HEMORRHAGE; I62.03 - NONTRAUMATIC CHRONIC SUBDURAL HEMORRHAGE Status: Acute (2) Hypokalemia Code(s): E87.6 - HYPOKALEMIA Status: Acute (3) Anxiety and depression Code(s): F41.9 - ANXIETY DISORDER, UNSPECIFIED; F32.9 - MAJOR DEPRESSIVE DISORDER, SINGLE EPISODE, UNSPECIFIED Status: Chronic (4) Bipolar disorder Code(s): F31.9 - BIPOLAR DISORDER, UNSPECIFIED Status: Chronic (5) Dyslipidemia Code(s): E78.5 - HYPERLIPIDEMIA, UNSPECIFIED Status: Chronic (6) HTN (hypertension) Code(s): I10 - ESSENTIAL (PRIMARY) HYPERTENSION Status: Chronic (7) Leucopenia Code(s): D72.819 - DECREASED WHITE BLOOD CELL COUNT, UNSPECIFIED Status: Chronic (8) Thrombocytopenia Code(s): D69.6 - THROMBOCYTOPENIA, UNSPECIFIED Status: Chronic - Plan old records reviewed/req, PT/OT DC IVF start low dose of depakote ER 500 mg po daily discharge planning medication reviewed as above symptomatic treatment
--- NOTE | 2018-09-29 12:52 | PRG ---
DATE OF SERVICE: 09/29/2018 This is Craig Mena PA-C dictating a report for Keanu Lundebrg MD. A 10-minute subsequent patient evaluation, in which greater than 50% of the exam was spent in counseling and coordinating the patient's care. Remainder of the exam was spent in review of the patient's medical records and formulation of treatment plan on Crystal Hernández. Ms. Hernández is progressing well. Her Depakote level has normalized, and therefore, we will restart her dosage today. She continues with good strength in all the extremities. She has had some significant nausea today and states she still is somewhat dizzy when walking with therapies. Neurologically, she is intact, although slightly delayed. This has been her baseline since admission. There is no role for neurosurgical intervention at this time, and we will sign off with transfer of care to our medical colleagues. We will arrange for an outpatient followup including a repeat head CT, but suggest continuing her Depakote as well as abstaining from any aspirin or other blood thinners. Please call with any changes in the patient's neurologic status. Otherwise, we will sign off. I have discussed this with nursing staff and placed an order to transfer service to Medicine. Job ID: [id number]
[2018-09-29] MEDS: Senokot S 8.6-50 MG TAB PO PRN (22:16)
[2018-09-30] MEDS: FLUoxetine HCl 20 MG CAP PO SCH (08:56)
[2018-09-30] MEDS: Aripiprazole 2 MG TAB PO SCH (08:56)
[2018-09-30] MEDS: Senokot S 8.6-50 MG TAB PO PRN ×2 (08:57→21:49)
--- NOTE | 2018-09-30 14:34 | PDOC.HOSPP ---
- Subjective Subjective: Patient seen and examined. No new complaints. No overnight events - Objective Vital Signs & Weight: Vital Signs (12 hours) Temp Pulse Pulse Pulse Resp BP BP 09/30/18 11:42 98 F 71 16 09/30/18 10:11 69 71 135/61 136/63 09/30/18 09:28 82 66 142/69 H 139/63 09/30/18 08:00 98 F 81 16 09/30/18 07:10 09/30/18 04:00 98.2 F 77 16 BP Pulse Ox 09/30/18 11:42 135/63 98 09/30/18 10:11 09/30/18 09:28 09/30/18 08:00 138/65 96 09/30/18 07:10 97 09/30/18 04:00 140/70 97 Weight Admit Weight 120 lb 1.6 oz Weight 120 lb 1.6 oz Most Recent Monitor Data Heart Rate from ECG 91 NIBP 139/101 NIBP BP-Mean 113 Respiration from ECG 20 SpO2 100 I&O: 09/29/18 09/30/18 10/01/18 06:59 06:59 06:59 Intake Total 3233 1510 843 Output Total 200 2430 900 Balance 3033 -920 -57 Result Diagrams: 09/29/18 04:37 09/29/18 04:37 ROS - Review of Systems All systems: All other ROS were reviewed and found negative. Constitutional: denies: fever, chills, sweats, weakness, malaise, other Eyes: denies: pain, vision change, conjunctivae inflammation, eyelid inflammation, redness, other ENT: denies: ear pain, ear discharge, nose pain, nose discharge, nose congestion , mouth pain, mouth swelling, throat pain, throat swelling, other Respiratory: denies: cough, dry, shortness of breath, hemoptysis, SOB with excertion, pleuritic pain, sputum, wheezing, other Cardiovascular: denies: chest pain, palpitations, orthopnea, paroxysmal noc. dyspnea, edema, light headedness, other Gastrointestinal: denies: nausea, vomitting, abdominal pain, diarrhea, constipation, melena, hematochezia, other Genitourinary: denies: dysuria, frequency, incontinence, hematuria, retention, other Musculoskeletal: denies: neck pain, shoulder pain, arm pain, back pain, hand pain, leg pain, foot pain, other Skin: denies: rash, lesions, tomasz, bruising, other - Medication Medications: Active Medications Generic Name Dose Route Start Last Admin Trade Name Freq PRN Reason Stop Dose Admin Aripiprazole 2 mg 09/29/18 09:00 09/30/18 08:56 Abilify PO 2 mg DAILY KIANA Administration Divalproex Sodium 500 mg 09/30/18 09:00 09/30/18 08:56 Depakote Er PO 500 mg DAILY KIANA Administration Fluoxetine HCl 60 mg 09/29/18 09:00 09/30/18 08:56 Prozac PO 60 mg DAILY KIANA Administration Hydralazine HCl 5 mg 09/27/18 19:56 09/28/18 04:14 Apresoline SLOW IVP 5 mg Q15MIN PRN Administration Sbp Greater Than 150 Ondansetron HCl 4 mg 09/27/18 19:51 09/28/18 16:18 Zofran IVP 4 mg Q6H PRN Administration Nausea/Vomiting Pantoprazole Sodium 40 mg 09/30/18 09:00 09/30/18 08:56 Protonix PO 40 mg DAILY KIANA Administration Senna/Docusate Sodium 2 tab 09/28/18 09:25 09/30/18 08:57 Senokot S PO 2 tab BIDPRN PRN Administration Constipation - Exam NAD, awake alert Eye: PERRL, anicteric sclera ENT: normocephalic atraumatic, no oropharyngeal lesions Neck: supple, symmetric, no JVD Heart: RRR, no murmur, no gallops Respiratory: CTAB, no wheezes, no rales, no ronchi Gastrointestinal: soft, non-tender, non-distended, normal bowel sounds Extremities: no cyanosis, no clubbing, no edema Skin: normal turgor, no lesions, no rashes Neurological: CN's grossly intact, normal sensation to touch, no focal deficits Musculoskeletal: normal tone, normal strength Psychiatric: normal affect, normal behavior Hosp A/P (1) Acute on chronic intracranial subdural hematoma Code(s): I62.01 - NONTRAUMATIC ACUTE SUBDURAL HEMORRHAGE; I62.03 - NONTRAUMATIC CHRONIC SUBDURAL HEMORRHAGE Status: Acute (2) Hypokalemia Code(s): E87.6 - HYPOKALEMIA Status: Acute (3) Anxiety and depression Code(s): F41.9 - ANXIETY DISORDER, UNSPECIFIED; F32.9 - MAJOR DEPRESSIVE DISORDER, SINGLE EPISODE, UNSPECIFIED Status: Chronic (4) Bipolar disorder Code(s): F31.9 - BIPOLAR DISORDER, UNSPECIFIED Status: Chronic (5) Dyslipidemia Code(s): E78.5 - HYPERLIPIDEMIA, UNSPECIFIED Status: Chronic (6) HTN (hypertension) Code(s): I10 - ESSENTIAL (PRIMARY) HYPERTENSION Status: Chronic (7) Leucopenia Code(s): D72.819 - DECREASED WHITE BLOOD CELL COUNT, UNSPECIFIED Status: Chronic (8) Thrombocytopenia Code(s): D69.6 - THROMBOCYTOPENIA, UNSPECIFIED Status: Chronic - Plan old records reviewed/req, 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
[2018-10-01] MEDS: FLUoxetine HCl 20 MG CAP PO SCH (09:30)
[2018-10-01] MEDS: Aripiprazole 2 MG TAB PO SCH (09:30)
--- NOTE | 2018-10-01 11:27 | PDOC.HOSPP ---
- Subjective Subjective: Patient seen and examined. No new complaints. No overnight events - Objective Vital Signs & Weight: Vital Signs (12 hours) Temp Pulse Resp BP Pulse Ox 10/01/18 08:01 95 10/01/18 07:46 98.7 F 78 16 137/71 95 10/01/18 04:00 98.4 F 69 17 125/61 96 10/01/18 00:00 98.8 F 79 16 136/70 97 Weight Admit Weight 120 lb 1.6 oz Weight 120 lb 1.6 oz Most Recent Monitor Data Heart Rate from ECG 91 NIBP 139/101 NIBP BP-Mean 113 Respiration from ECG 20 SpO2 100 I&O: 09/30/18 10/01/18 10/02/18 06:59 06:59 06:59 Intake Total 1510 2090 537 Output Total 2430 1999 Balance -920 90 537 Result Diagrams: 09/29/18 04:37 09/29/18 04:37 ROS - Review of Systems All systems: All other ROS were reviewed and found negative. Constitutional: denies: fever, chills, sweats, weakness, malaise, other Eyes: denies: pain, vision change, conjunctivae inflammation, eyelid inflammation, redness, other ENT: denies: ear pain, ear discharge, nose pain, nose discharge, nose congestion , mouth pain, mouth swelling, throat pain, throat swelling, other Respiratory: denies: cough, dry, shortness of breath, hemoptysis, SOB with excertion, pleuritic pain, sputum, wheezing, other Cardiovascular: denies: chest pain, palpitations, orthopnea, paroxysmal noc. dyspnea, edema, light headedness, other Gastrointestinal: denies: nausea, vomitting, abdominal pain, diarrhea, constipation, melena, hematochezia, other Genitourinary: denies: dysuria, frequency, incontinence, hematuria, retention, other Musculoskeletal: denies: neck pain, shoulder pain, arm pain, back pain, hand pain, leg pain, foot pain, other Skin: denies: rash, lesions, tomasz, bruising, other - Medication Medications: Active Medications Generic Name Dose Route Start Last Admin Trade Name Freq PRN Reason Stop Dose Admin Aripiprazole 2 mg 09/29/18 09:00 10/01/18 09:30 Abilify PO 2 mg DAILY KIANA Administration Divalproex Sodium 500 mg 09/30/18 09:00 10/01/18 09:30 Depakote Er PO 500 mg DAILY KIANA Administration Fluoxetine HCl 60 mg 09/29/18 09:00 10/01/18 09:30 Prozac PO 60 mg DAILY KIANA Administration Hydralazine HCl 5 mg 09/27/18 19:56 09/28/18 04:14 Apresoline SLOW IVP 5 mg Q15MIN PRN Administration Sbp Greater Than 150 Ondansetron HCl 4 mg 09/27/18 19:51 09/28/18 16:18 Zofran IVP 4 mg Q6H PRN Administration Nausea/Vomiting Pantoprazole Sodium 40 mg 09/30/18 09:00 10/01/18 09:30 Protonix PO 40 mg DAILY KIANA Administration Senna/Docusate Sodium 2 tab 09/28/18 09:25 09/30/18 21:49 Senokot S PO 2 tab BIDPRN PRN Administration Constipation - Exam NAD, awake alert Eye: PERRL, anicteric sclera ENT: normocephalic atraumatic, no oropharyngeal lesions Neck: supple, symmetric, no JVD Heart: RRR, no murmur, no gallops Respiratory: CTAB, no wheezes, no rales, no ronchi Gastrointestinal: soft, non-tender, non-distended, normal bowel sounds Extremities: no cyanosis, no clubbing, no edema Skin: normal turgor, no lesions, no rashes Neurological: CN's grossly intact, normal sensation to touch, no focal deficits Musculoskeletal: normal tone, normal strength, no muscle wasting Psychiatric: normal affect, normal behavior, A&O x 3 Hosp A/P (1) Acute on chronic intracranial subdural hematoma Code(s): I62.01 - NONTRAUMATIC ACUTE SUBDURAL HEMORRHAGE; I62.03 - NONTRAUMATIC CHRONIC SUBDURAL HEMORRHAGE Status: Acute (2) Hypokalemia Code(s): E87.6 - HYPOKALEMIA Status: Acute (3) Anxiety and depression Code(s): F41.9 - ANXIETY DISORDER, UNSPECIFIED; F32.9 - MAJOR DEPRESSIVE DISORDER, SINGLE EPISODE, UNSPECIFIED Status: Chronic (4) Bipolar disorder Code(s): F31.9 - BIPOLAR DISORDER, UNSPECIFIED Status: Chronic (5) Dyslipidemia Code(s): E78.5 - HYPERLIPIDEMIA, UNSPECIFIED Status: Chronic (6) HTN (hypertension) Code(s): I10 - ESSENTIAL (PRIMARY) HYPERTENSION Status: Chronic (7) Leucopenia Code(s): D72.819 - DECREASED WHITE BLOOD CELL COUNT, UNSPECIFIED Status: Chronic (8) Thrombocytopenia Code(s): D69.6 - THROMBOCYTOPENIA, UNSPECIFIED Status: Chronic - Plan old records reviewed/req, 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
--- NOTE | 2018-10-02 07:47 | DIS ---
DATE OF ADMISSION: 09/27/2018 DATE OF DISCHARGE: 10/02/2018 PRIMARY CARE PHYSICIAN: Dr. Shahzad Christianson. DISCHARGE DISPOSITION: [facility]. PRIMARY DISCHARGE DIAGNOSES: 1. Acute on chronic subdural hematoma. 2. Hypokalemia. SECONDARY DISCHARGE DIAGNOSES: 1. Leukopenia. 2. Thrombocytopenia. 3. Hypertension. 4. Dyslipidemia. 5. Bipolar disorder. 6. Anxiety and depression. 7. History of subdural hematoma. PRIMARY PROCEDURE/OPERATION: None. RADIOLOGICAL INVESTIGATION: CT brain x2 was showing stable subdural hematoma. Chest x-ray normal. SIGNIFICANT LABORATORY DATA: WBC 3.1, hemoglobin 11.5, and platelet 90. Sodium 134, potassium 3.5, BUN 15, creatinine 0.84, and calcium 8.2. LFT normal. Urinalysis normal. Valproic acid 55.3. DISCHARGE MEDICATIONS: 1. Calcium citrate 950 mg p.o. b.i.d. 2. Clonazepam 0.5 mg p.o. b.i.d. 3. Colace 100 mg p.o. b.i.d. 4. Fenofibric acid 135 mg p.o. daily. 5. Fluoxetine 60 mg p.o. daily. 6. Multivitamin one tablet p.o. daily. 7. Abilify 2 mg p.o. daily. 8. Vitamin B12 of 1000 mcg p.o. daily. 9. Depakote ER 1000 mg p.o. daily. 10. Folic acid 1 mg p.o. daily. CONTRAINDICATION: None. CODE STATUS: Full code. INPATIENT CONSULT: Initially, Dr. Keanu Lundberg was primary while in hospital and subsequently [facility] was primary. Dr. Cain saw this patient because the patient was admitted in ICU. TEST RESULTS PENDING ON DISCHARGE: None. ALLERGIES: NO KNOWN DRUG ALLERGIES. DISCHARGE PLAN: Posthospital, the patient will follow up with primary care physician, neurosurgeon as instructed. HOSPITAL COURSE: A 63-year-old female with above-mentioned medical problem, who was initially admitted by Craig Mena under Neurosurgery service. Please see her H and P for further details. The patient was recently treated for subdural hematoma and discharged to rehab and she returned home and she had another episode of fall from her physical deconditioning and that is why she was brought to emergency room. She was admitted for acute on chronic subdural hematoma. She was admitted in ICU and neuro check was done. She remained stable. Repeat CT brain also remained stable. Neurosurgeon thought that this patient does not need any surgical intervention and they signed off on the case. The patient was transferred to stroke floor, where she remained neurologically stable. This patient has physical deconditioning and that is why she needs senior living home placement and with help of lead case manager, we are trying to arrange senior living home placement for her. Otherwise, the patient is medically stable. Initially, her valproic acid level was high and that is why we kept the medication on hold, but subsequently level was normal and restarted that medication. PHYSICAL EXAMINATION: The patient is seen and examined at bedside today. VITAL SIGNS: Currently, temperature 98.0, pulse 77, respiratory rate 18, saturation 97% on room air, and blood pressure 134/60. Weight 120 pounds. GENERAL: The patient is currently alert, awake, no acute distress. LUNGS: Clear to auscultation without any rhonchi or rales. CARDIAC: S1 and S2. Regular without any murmur. No gallop. No rub. ABDOMEN: Soft and benign without any tenderness. EXTREMITIES: No edema. NEUROLOGICAL: Grossly normal without any focal neurological deficit. Paperwork for discharge done and discharge medication reconciliation done. This patient will be discharged at any time today once we have senior living home arrangement done. Job ID: [id number]
--- NOTE | 2018-10-02 08:45 | PDOC.HOSPP ---
- Subjective Subjective: Patient seen and examined. No new complaints. No overnight events - Objective Vital Signs & Weight: Vital Signs (12 hours) Temp Pulse Resp BP Pulse Ox 10/02/18 04:00 98.0 F 77 18 134/60 97 10/02/18 00:00 98.7 F 79 18 121/59 L 96 Weight Admit Weight 120 lb 1.6 oz Weight 120 lb 1.6 oz Most Recent Monitor Data Heart Rate from ECG 91 NIBP 139/101 NIBP BP-Mean 113 Respiration from ECG 20 SpO2 100 I&O: 10/01/18 10/02/18 10/03/18 06:59 06:59 06:59 Intake Total 0 1854 Output Total 1999 Balance 90 1854 Result Diagrams: 09/29/18 04:37 09/29/18 04:37 ROS - Review of Systems All systems: All other ROS were reviewed and found negative. Constitutional: denies: fever, chills, sweats, weakness, malaise, other Eyes: denies: pain, vision change, conjunctivae inflammation, eyelid inflammation, redness, other ENT: denies: ear pain, ear discharge, nose pain, nose discharge, nose congestion , mouth pain, mouth swelling, throat pain, throat swelling, other Respiratory: denies: cough, dry, shortness of breath, hemoptysis, SOB with excertion, pleuritic pain, sputum, wheezing, other Cardiovascular: denies: chest pain, palpitations, orthopnea, paroxysmal noc. dyspnea, edema, light headedness, other Gastrointestinal: denies: nausea, vomitting, abdominal pain, diarrhea, constipation, melena, hematochezia, other Genitourinary: denies: dysuria, frequency, incontinence, hematuria, retention, other Musculoskeletal: denies: neck pain, shoulder pain, arm pain, back pain, hand pain, leg pain, foot pain, other Skin: denies: rash, lesions, tomasz, bruising, other - Medication Medications: Active Medications Generic Name Dose Route Start Last Admin Trade Name Freq PRN Reason Stop Dose Admin Aripiprazole 2 mg 09/29/18 09:00 10/01/18 09:30 Abilify PO 2 mg DAILY KIANA Administration Divalproex Sodium 500 mg 09/30/18 09:00 10/01/18 09:30 Depakote Er PO 500 mg DAILY KIANA Administration Fluoxetine HCl 60 mg 09/29/18 09:00 10/01/18 09:30 Prozac PO 60 mg DAILY KIANA Administration Hydralazine HCl 5 mg 09/27/18 19:56 09/28/18 04:14 Apresoline SLOW IVP 5 mg Q15MIN PRN Administration Sbp Greater Than 150 Ondansetron HCl 4 mg 09/27/18 19:51 09/28/18 16:18 Zofran IVP 4 mg Q6H PRN Administration Nausea/Vomiting Pantoprazole Sodium 40 mg 09/30/18 09:00 10/01/18 09:30 Protonix PO 40 mg DAILY KIANA Administration Senna/Docusate Sodium 2 tab 09/28/18 09:25 09/30/18 21:49 Senokot S PO 2 tab BIDPRN PRN Administration Constipation - Exam NAD, awake alert Eye: PERRL, anicteric sclera ENT: normocephalic atraumatic, no oropharyngeal lesions Neck: supple, symmetric, no JVD Heart: RRR, no murmur, no gallops Respiratory: CTAB, no wheezes, no rales Gastrointestinal: soft, non-tender, non-distended Extremities: no cyanosis, no clubbing, no edema Skin: normal turgor, no lesions Neurological: CN's grossly intact, normal sensation to touch, no focal deficits Musculoskeletal: normal tone, normal strength Psychiatric: normal affect, normal behavior Hosp A/P (1) Acute on chronic intracranial subdural hematoma Code(s): I62.01 - NONTRAUMATIC ACUTE SUBDURAL HEMORRHAGE; I62.03 - NONTRAUMATIC CHRONIC SUBDURAL HEMORRHAGE Status: Acute (2) Hypokalemia Code(s): E87.6 - HYPOKALEMIA Status: Acute (3) Anxiety and depression Code(s): F41.9 - ANXIETY DISORDER, UNSPECIFIED; F32.9 - MAJOR DEPRESSIVE DISORDER, SINGLE EPISODE, UNSPECIFIED Status: Chronic (4) Bipolar disorder Code(s): F31.9 - BIPOLAR DISORDER, UNSPECIFIED Status: Chronic (5) Dyslipidemia Code(s): E78.5 - HYPERLIPIDEMIA, UNSPECIFIED Status: Chronic (6) HTN (hypertension) Code(s): I10 - ESSENTIAL (PRIMARY) HYPERTENSION Status: Chronic (7) Leucopenia Code(s): D72.819 - DECREASED WHITE BLOOD CELL COUNT, UNSPECIFIED Status: Chronic (8) Thrombocytopenia Code(s): D69.6 - THROMBOCYTOPENIA, UNSPECIFIED Status: Chronic - Plan old records reviewed/req, protective services social worker medication reviewed as above symptomatic treatment see discharge davi
[2018-10-02] MEDS: FLUoxetine HCl 20 MG CAP PO SCH (10:15)
[2018-10-02] MEDS: Aripiprazole 2 MG TAB PO SCH (10:16)
[2018-10-02 11:51] VITALS: BP 118/55; TEMP 98.4
== END 2018-10-02 14:37 | DRG 66 ==
LOC: ERS 17:21 → CCU 20:52 → 2SE 09-28 13:01
PROVIDERS: ADMIT Surgery; ATTEND Surgery
DX: I62.01 Nontraumatic acute subdural hemorrhage (principal); I62.03 Nontraumatic chronic subdural hemorrhage; F31.9 Bipolar disorder, unspecified; F41.9 Anxiety disorder, unspecified; E87.6 Hypokalemia; D72.819 Decreased white blood cell count, unspecified; D69.6 Thrombocytopenia, unspecified; E03.9 Hypothyroidism, unspecified; Z98.51 Tubal ligation status; Z79.899 Other long term (current) drug therapy; Z79.82 Long term (current) use of aspirin
CPT/HCPCS: 36415; 70450; 71045; 80048; 80053; 80164; 81003; 82550; 83735; 84484; 85025; 93005; 94760; C9113; J0360; J1953; J2405

== ENCOUNTER 2018-11-11 16:11 | Emergency (ER) | payer MEDICARE, BC ==
[~2018-11-11 16:11] MED LIST: ISOVUE-370 76%-LOCM 1 ML ONE
[2018-11-11] MEDS ORDERED: Morphine 4 MG/ML VIAL ONE ×2 (16:50→21:57)
[2018-11-11 17:01] LABS: #Eosinphils 0.1 thou/uL (0.0-0.7); #Lymphocytes 0.6 thou/uL (1.20-3.40); #Monocytes 0.4 thou/uL (0.11-0.59); #Neutrophils 1.7 thou/uL (1.40-6.50); %Basophils 1.1 % (0.0-1.0); %Eosinophils 2.2 % (0.0-10.0); %Lymphocytes 19.7 % (21.0-51.0); %Monocytes 14.5 % (0.0-10.0); %Neutrophils 62.5 % (42.0-75.0); Hemoglobin 12.3 g/dL (12.0-16.0); Mean Corpuscular HGB CONC 34.1 g/dL (32.0-36.0); Mean Corpuscular Hemoglobin 32.1 pg (27.0-31.0); Mean Corpuscular Volume 94.1 fL (78.0-98.0); Platelet Count 142 thou/uL (130-400); RBC Distribution Width 13.1 % (11.5-14.5); Red Blood Cell (RBC) Count 3.83 mill/uL (4.20-5.40); White Blood Cell (WBC) Count 2.8 thou/uL (4.8-10.8)
[2018-11-11 17:07] LABS: INR-International Normal Ratio 1.2; PTT 26.4 SEC (22.9-36.1); Prothrombin Time 14.7 SEC (12.0-14.7)
[2018-11-11 17:30] LABS: ALT (SGPT) 19 U/L (8-55); AST (SGOT) 27 U/L (5-34); Albumin 3.4 g/dL (3.4-4.8); Alkaline Phosphatase 40 U/L (40-150); Anion Gap 8 mmol/L (10-20); BUN (Urea Nitrogen) 25 mg/dL (9.8-20.1); Bilirubin, Total 0.5 mg/dL (0.2-1.2); Calc. Creatinine Clearance 0 mL/min (70-130); Calcium 8.6 mg/dL (7.8-10.44); Carbon Dioxide 30 mmol/L (23-31); Chloride 102 mmol/L (98-107); Estimated GFR-MDRD 46; Glucose 223 mg/dL (80-115); Lipase 43 U/L (8-78); Potassium 3.9 mmol/L (3.5-5.1); Protein, Total 5.4 g/dL (6.0-8.3); Sodium 136 mmol/L (136-145)
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
[2018-11-11] MEDS ORDERED: Ketorolac Tromethamine 30 MG/ML VIAL ONE (21:57)
== END 2018-11-11 22:40 ==
LOC: ERS 16:11
DX: S82.102A Unspecified fracture of upper end of left tibia, initial encounter for closed fracture (principal); S16.1XXA Strain of muscle, fascia and tendon at neck level, initial encounter; S20.212A Contusion of left front wall of thorax, initial encounter; S20.211A Contusion of right front wall of thorax, initial encounter; S50.12XA Contusion of left forearm, initial encounter; S50.11XA Contusion of right forearm, initial encounter; S60.222A Contusion of left hand, initial encounter; S60.221A Contusion of right hand, initial encounter; S80.02XA Contusion of left knee, initial encounter; S80.01XA Contusion of right knee, initial encounter; S90.02XA Contusion of left ankle, initial encounter; S90.01XA Contusion of right ankle, initial encounter; M79.7 Fibromyalgia; E03.9 Hypothyroidism, unspecified; E78.5 Hyperlipidemia, unspecified; F41.9 Anxiety disorder, unspecified; F31.9 Bipolar disorder, unspecified; Z79.82 Long term (current) use of aspirin; Z79.899 Other long term (current) drug therapy; V89.2XXA Person injured in unspecified motor-vehicle accident, traffic, initial encounter
CPT/HCPCS: 36415; 70450; 71260; 72125; 74177; 80053; 83690; 85025; 85610; 85730; 96361; 96374; 96375; 96376; J1885; J2270; Q9966